=== PATIENT | male | born 1970 | race Caucasian/White ===

== ENCOUNTER 2020-02-20 20:23 | Emergency (ER) | payer MEDICAID, SELFPAY ==
[2020-02-20 20:24] VITALS: BP 155/100; PULSE 64; RESP 15; TEMP 36.4; O2SAT 99; BMI 40.7
--- NOTE | 2020-02-20 21:08 | ED.DCSUM_ITS ---
- ER Visit Summary Date of Service: 02/20/20 Chief Complaint: Dental pain History of Present Illness: The patient is a 49 M who presents with dental pain that is been getting progressively worse over the past few weeks. Patient states the pain is on the right lower molars. Patient describes the pain as a porfirio. Patient admits to hot and cold sensitivity. Patient denies any fevers or chills. Patient denies any jaw or mouth swelling. Patient also states she is out of his blood pressure medication and needs a refill for that. Patient denies any chest pain or shortness of breath. Patient denies any nausea or vomiting. Physical Examination: Vital signs are stable except for mildly elevated blood pressure 135/100 patient is afebrile. Patient is in no acute distress. Oral mucosa is pink and moist. There are multiple dental caries over the right upper and lower molars. There is some mild gingival edema over this area. There is no fluctuance or abscess formation. There is no sublingual edema or evidence of Edil angina. There is no erythema or warmth. Neck is supple. Trachea is midline. There is no cervical lymphadenopathy. Was regular rate and rhythm. Lungs are clear and equal bilaterally. Cranial nerves II through XII are intact. There are no focal motor or sensory deficits noted. Emergency Department Course and Treatment: Patient was given a dose of Pen-Vee K and Motrin here. Patient was given prescriptions for Pen-Vee K, Motrin, and lisinopril. Patient was instructed to follow-up with his dentist and primary care physician in 5 to 7 days. Patient understood and was agreeable with the plan. All questions were answered. Disposition: Discharge home Impression: Infected dental caries This note was generated with [employer] dictation software. It may contain incorrect words, spelling, and punctuation that were not noted in review of the chart prior to signing ED Disposition - Plan for ED Patient: Disposition: Home or Assisted Living Diagnosis: Infected dental caries, Hypertension Instructions: ED [facility] Dental, ED Hypertension Established Prescriptions: Lisinopril 20 mg PO DAILY #30 tab Prescription Printed Ibuprofen [Motrin] 800 mg PO TID PRN PRN #20 tab PRN Reason: Pain Score 1-10 Prescription Printed Penicillin Vk [Pen-Vee K 250MG] 500 mg PO 4X/DAY #40 tab Prescription Printed Referrals: Alyson Marin [NON-STAFF] - 5-7 Days
[2020-02-20] MEDS: Ibuprofen 400 MG Tablet 800 MG PO (21:23)
[2020-02-20] MEDS: Penicillin Vk 250 MG Tablet 500 MG PO (21:23)
[2020-02-20 21:41] VITALS: BP 150/60; PULSE 78; RESP 18; O2SAT 96
== END 2020-02-20 21:41 | disposition home or self-care (01) ==
PROVIDERS: Emergency Provider Emergency Medicine
DX: K02.9 Dental caries, unspecified (principal); I10 Essential (primary) hypertension; K04.7 Periapical abscess without sinus
CPT/HCPCS: 99283

== ENCOUNTER 2021-01-05 05:53 | Emergency (ER) | payer MEDICAID, SELFPAY ==
[2021-01-05 05:53] VITALS: BP 187/106; PULSE 78; RESP 16; TEMP 35.5; O2SAT 98; BMI 34.4
--- NOTE | 2021-01-05 06:00 | EX.ED.DYSGE1 ---
HPI History of Present Illness Chief Complaint: Med Refill Informant: patient Narrative Narrative: Patient presents requesting refill of blood pressure meds. He has been on lisinopril 20 mg a day for a long time. This does not include hydrochlorothiazide. He is really not having symptoms but has been out for a few days. He cannot get into see a new primary physician and he just wanted to get his prescriptions filled. He has no complaints. Lisinopril has controlled his blood pressure well in the past. PFSH PFS Medical History HTN (hypertension) Home Medications lisinopril 20 mg PO DAILY #30 tab 02/20/20 [Rx Last Taken Unknown] lisinopril 20 mg PO DAILY #30 tab 01/05/21 [Rx Last Taken Unknown] Allergy/AdvReac Type Severity Reaction Status Date / Time No Known Allergies Allergy Verified 01/05/21 05:54 Social History Smoking Status: Current every day smoker tobacco type: cigarettes ROS ROS ED Constitutional Constitutional ED: Denies chills or fever(s) Eyes Eyes: Denies blurry vision Cardiovascular Cardiovascular: Denies chest pain or palpitations Respiratory/Chest Respiratory/Chest: Denies cough or dyspnea Integumentary Denies rash Neurologic Neurologic: Denies headache(s), paresthesias or weakness EXAM Physical Exam Const Vital Signs: 01/05/21 05:53 01/05/21 05:56 Temperature 96 F L Temperature Source Temporal Pulse Rate 78 Respiratory Rate 16 Respiratory Effort Normal Respiratory Pattern Normal Blood Pressure 187/106 H Blood Pressure Mean 133 Pulse Ox 98 Positive well nourished and well developed General Appearance ED: well developed and NAD; Negative for pallor HEENT Reports moist mucous membranes Eyes General Eye ED: Negative for pale conjunctiva Neck no JVD Resp normal respiratory effort and clear to auscultation bilaterally Cardio regular rate and regular rhythm Extremity normal to inspection General Extremety ED: Negative for edema General Extremity: Negative for edema Neuro oriented x3 Sensorium / Orientation: alert Psych mental status grossly normal Skin no rashes or lesions noted General Skin Exam: Negative for jaundice or pallor MDM MDM MDM Narrative Medical decision making narrative: Patient's blood pressure is up today. However, he is off of his meds and he is asymptomatic. This does not need acute treatment. He has been well controlled for many years on lisinopril. I will write him for lisinopril. Because it takes a while to get into first visit with the primary physician, I will write him for 2 refills. I explained he should still work to get in as soon as possible to a primary. But I would rather him not run out of medications. Discharge Plan Triage Chief Complaint: Med Refill ED Provider: Agusot Davis Dx/Rx/DC Orders Clinical Impression: Hypertension Instructions: Hypertension Dc, Med Refill Prescriptions: New lisinopril 20 mg tablet 20 mg PO DAILY Qty: 30 RF: 2 No Action lisinopril 20 MG tablet 20 mg PO DAILY Qty: 30 RF: 0 Primary Care Provider: Care Physician,No Primary Referrals: Navjot,Maite, DO [NON-STAFF] - As soon as possible Care Physician,No Primary [Primary Care Provider] - Disposition Disposition: Home, Self Care
== END 2021-01-05 06:17 | disposition home or self-care (01) ==
LOC: ED 06:13
PROVIDERS: Emergency Provider Emergency Medicine
DX: I10 Essential (primary) hypertension (principal); Z76.0 Encounter for issue of repeat prescription; F17.210 Nicotine dependence, cigarettes, uncomplicated; Z79.899 Other long term (current) drug therapy
CPT/HCPCS: 99282

== ENCOUNTER 2021-02-17 21:01 | Emergency (ER) | payer MEDICAID, SELFPAY ==
[2021-02-17 21:02] VITALS: BP 150/101; PULSE 62; RESP 15; TEMP 35.9; O2SAT 98; BMI 40.1
--- NOTE | 2021-02-17 21:14 | ED.RN ---
PT AMBULATED FROM TRIAGE TO ROOM WITHOUT DIFFICULTY. PT WAS STEADY AND WALKED IN A STRAIGHT LINE WITHOUT ASSISTANCE AND WITHOUT NEEDING TO HANG ON TO ANYTHING.
[2021-02-17 21:46] VITALS: BP 148/93; BP 153/95; BP 155/94; PULSE 57; PULSE 62; PULSE 64
[2021-02-17 21:55] LABS: Bedside Glucose 107 mg/dL (70-110)
--- NOTE | 2021-02-17 22:04 | CM.ED ---
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 GIOVANNI met with patient. He has [employer] insurance. SW discussed that [facility] and [facility] accept [employer] insurance. GIOVANNI also discussed the value of having a PCP. GIOVANNI also provided patient with handout titled when to go where and the phone number for [employer] RN and [employer] transport. Patient verbalized understanding. No other issues voiced. GIOVANNI remains available. Plan: Provided patient with PCP information Yazmin FARFAN
--- NOTE | 2021-02-17 22:07 | EDS_ITS ---
HPI History of Present Illness Chief Complaint: Dizziness Narrative Narrative: Patient is a 50-year-old male with past medical history of hypertension. He states for the past few weeks he has noticed intermittent bouts of dizziness that he describes as a lightheaded sensation. He states they only seem to occur when he is walking to the time clock at work or when he becomes very upset. He denies any headache or head trauma chest pain shortness of breath palpitations diarrhea or dysuria. He states that he missed work today secondary to the dizziness and therefore comes in for evaluation [facility] Medical History HTN (hypertension) Home Medications lisinopril 20 mg PO DAILY #30 tab 02/20/20 [Rx Last Taken Unknown] lisinopril 20 mg PO DAILY #30 tab 02/17/21 [Rx Last Taken Unknown] Allergy/AdvReac Type Severity Reaction Status Date / Time No Known Allergies Allergy Verified 02/17/21 21:02 Surgical History no surgical history Social History Smoking Status: Current every day smoker tobacco type: cigarettes ROS ROS ED Constitutional Constitutional ED: Denies chills or fever(s) Eyes Eyes: Denies change in vision ENT ENT ED: Denies sore throat Cardiovascular Cardiovascular: Denies chest pain Respiratory/Chest Respiratory/Chest: Denies cough or dyspnea Gastrointestinal Gastrointestinal: Denies abdominal pain, diarrhea, nausea or vomiting Genitourinary Genitourinary ED: Denies dysuria Musculoskeletal Musculoskeletal: Denies myalgias Integumentary Denies rash Neurologic Neurologic: Reports other Details: Positive dizziness ; Denies headache(s) Hematologic/Lymphatic Hematologic/Lymphatic: Denies easy bleeding or easy bruising EXAM Physical Exam Const Vital Signs: 02/17/21 21:02 02/17/21 21:09 02/17/21 21:46 Temperature 96.6 F L Temperature Source Temporal Pulse Rate 62 Pulse Rate [Lying] 57 L Pulse Rate [Sitting] 62 Pulse Rate [Standing] 64 Respiratory Rate 15 Respiratory Effort Normal Respiratory Pattern Normal Blood Pressure 150/101 H Blood Pressure [Lying] 155/94 H Blood Pressure [Sitting] 153/95 H Blood Pressure [Standing] 148/93 H Blood Pressure Mean 117 Blood Pressure Mean [Lying] 114 Blood Pressure Mean [Sitting] 114 Blood Pressure Mean [Standing] 111 Pulse Ox 98 Oxygen Delivery Method Room Air Positive well nourished and well developed General Appearance ED: well developed HEENT Reports TM's clear and moist mucous membranes Tympanic Membrane ED: Yes TM's clear Eyes PERRL and EOMs intact bilaterally Neck supple Resp normal respiratory effort and clear to auscultation bilaterally Cardio regular rate and regular rhythm GI normal to inspection, nondistended, normoactive bowel sounds, non-tender and non-distended Auscultation: normoactive bowel sounds Palpation: soft Extremity normal to inspection Neuro oriented x3 and CN's II-XII intact bilaterally Neuro Narrative: No nystagmus noted. No pronator drift or truncal ataxia or dy smetria. Negative Romberg's test. Negative Hallpike Sarahi exam. NIH stroke scale score of 0 Sensorium / Orientation: alert Motor Exam: strength 5/5 throughout Psych mental status grossly normal Skin no rashes or lesions noted MDM MDM MDM Narrative Medical decision making narrative: Patient presented to the ER mildly hypertensive otherwise with stable vitals. He reported dizziness when he ambulated but was able to walk from the waiting room all the way to his exam room with a steady gait. He had a nonfocal neuro exam and I cannot reproduce the dizziness. He was concerned he may be diabetic so I did perform a Accu- Chek at bedside and he is normal at 107. As she reported that he has occurred with walking at work I did elect to perform orthostatic vitals which were also negative. At this time he has a normal neurologic exam no persistent dizziness and can ambulate with a steady gait so do not feel there is need for further work-up and this can be completed on an outpatient basis if symptoms persist. Lab Data Labs: Laboratory Results - last 24 hr 02/17/21 21:45 POC Glucose 107 Discharge Plan Triage Chief Complaint: Dizziness ED Provider: Heriberto Tirado Dx/Rx/DC Orders Clinical Impression: Dizziness, nonspecific, Hypertension Instructions: Controlling High Blood Pressure, ED Dizziness, Uncertain Cause Prescriptions: New lisinopril 20 mg tablet 20 mg PO DAILY Qty: 30 RF: 0 No Action lisinopril 20 MG tablet 20 mg PO DAILY Qty: 30 RF: 0 Primary Care Provider: Care Physician,No Primary Referrals: Robert Bernstein MD [STAFF PHYSICIAN] - 1-2 Weeks Care Physician,No Primary [Primary Care Provider] - Disposition Disposition: Home, Self Care
== END 2021-02-17 22:15 | disposition home or self-care (01) ==
PROVIDERS: Emergency Provider Emergency Medicine
DX: R42 Dizziness and giddiness (principal); I10 Essential (primary) hypertension; F17.210 Nicotine dependence, cigarettes, uncomplicated
CPT/HCPCS: 82962; 99283

== ENCOUNTER 2021-02-20 20:30 | Emergency (ER) | payer MEDICAID, SELFPAY ==
[2021-02-20 20:31] VITALS: BP 164/98; PULSE 67; RESP 16; TEMP 36.3; O2SAT 97; BMI 39.8
--- NOTE | 2021-02-20 20:51 | EKG12_ITS ---
Test Reason : DYSRHYTHMIA Blood Pressure : / mmHG Vent. Rate : 052 BPM Atrial Rate : 052 BPM P-R Int : 140 ms QRS Dur : 080 ms QT Int : 424 ms P-R-T Axes : 052 032 046 degrees QTc Int : 394 ms Sinus bradycardia Otherwise normal ECG Confirmed by NACHO RED, ANTHONY ([id number]), television news video editor JAELYN DIAZ ([id number]) on 02/21/2021 1:03:34 PM Referred By: RADHA Confirmed By:ANTHONY GRIFFITH MD
--- NOTE | 2021-02-20 20:52 | EDS_ITS ---
HPI History of Present Illness Chief Complaint: Dizziness Narrative Narrative: 50-year-old male presenting with nonspecific lightheadedness. He does not describe it as vertiginous in nature. He has had this for the last few days. He was already seen in the ER for this and had orthostatic vital signs done which were normal. His blood pressure was slightly elevated however the patient is on blood pressure medications. He has not had a fever, chills, cough. He does admit to sinus pressure. He states that when he gets up to stand events when he has the most symptoms. He is able to ambulate without falling. He denies any head injury. Patient states that after his last visit mans[facility] delgadooxic to the ER the next morning he had a pinching type left-sided chest pain which lasted about 30 minutes and then resolved. He did not have any other symptoms with this pinching chest pain. Patient states that sometimes when he sitting in his desk sometimes he gets a little sweaty but he has no other symptoms with this and specifically does not have chest pain or dizziness with the symptoms. [facility] Medical History HTN (hypertension) Home Medications lisinopril 20 mg PO DAILY #30 tab 02/20/20 [Rx Last Taken Unknown] Allergy/AdvReac Type Severity Reaction Status Date / Time No Known Allergies Allergy Verified 02/20/21 20:31 Social History Smoking Status: Former smoker ROS ROS ED Constitutional Constitutional ED: Reports sweats Eyes Eyes: Denies blurry vision or diplopia ENT ENT ED: Denies rhinorrhea or sore throat Cardiovascular Cardiovascular: Reports chest pain; Denies palpitations or racing heartbeat Respiratory/Chest Respiratory/Chest: Denies cough, dyspnea or sputum Gastrointestinal Gastrointestinal: Denies abdominal pain, nausea or vomiting Genitourinary Genitourinary ED: Denies dysuria or hematuria Musculoskeletal Musculoskeletal: Denies arthralgias, back pain, myalgias or neck pain Integumentary Denies Abrasions or rash Neurologic Neurologic: Reports headache(s); Denies paresthesias EXAM Physical Exam Const Vital Signs: 02/20/21 20:31 02/20/21 20:34 02/20/21 20:54 Temperature 97.3 F L Temperature Source Oral Pulse Rate 67 Respiratory Rate 16 Respiratory Effort Non-Labored Blood Pressure 164/98 H Blood Pressure Mean 120 Pulse Ox 97 97 Oxygen Delivery Method Room Air Room Air Positive well nourished General Appearance ED: NAD; Negative for pallor HEENT Reports moist mucous membranes and nasal mucous membranes and turbinates normal normocephalic and trauma Eyes PERRL and EOMs intact bilaterally Resp normal respiratory effort and clear to auscultation bilaterally Cardio regular rate and regular rhythm GI normal to inspection, nondistended, normoactive bowel sounds Neuro oriented x3, CN's II-XII intact bilaterally and no sensory deficits noted Sensorium / Orientation: alert Motor Exam: strength 5/5 throughout Psych mental status grossly normal Skin General Skin Exam: Negative for jaundice or pallor MDM MDM MDM Narrative Medical decision making narrative: Patient presenting with dizziness which has had since his last visit to the emergency room. He does not have any vertiginous symptoms unable to reproduce this on examination. He has no focal neurologic deficits or lateralizing signs or symptoms. He does state that he has some sinus pressure but does not have any focal pain on examination. He does not have any purulent drainage from his nostrils nor does he have swollen nasal turbinates. Since patient did complain of chest pain a couple of days ago I will do a cardiac work-up. Patient is PERC negative. I do not believe the patient needs a CT of his brain based on his physical exam. Patient CBC shows slight leukocytosis 12. Hemoglobin hematocrit are stable. Renal function electrolytes are normal. Troponin is 7. EKG on my interpretation shows a sinus bradycardia with a ventricular rate of 52 bpm without signs of ST elevation or depression. There are no dysrhythmias. Chest x-ray on my interpretation shows no acute cardiopulmonary process and the radiologist does agree. Impression: 1. Dizziness Lab Data Labs: Laboratory Results - last 24 hr 02/20/21 02/20/21 20:37 20:37 WBC 12.0 H RBC 6.10 Hgb 17.6 H Hct 51.7 MCV 84.8 MCH 28.9 MCHC 34.0 RDW Std Deviation 37.3 RDW Coeff of Darell 12.2 Plt Count 324 MPV 9.7 Immature Gran % (Auto) 0.200 Neut % (Auto) 67.6 Lymph % (Auto) 24.8 [place] % (Auto) 6.2 Eos % (Auto) 0.8 Baso % (Auto) 0.4 Absolute Neuts (auto) 8.1 H Absolute Lymphs (auto) 2.98 Nucleated RBC % 0 Sodium 136 Potassium 4.1 Chloride 104 Carbon Dioxide 26.0 Anion Gap 6 BUN 12 Creatinine 0.99 Estim Creat Clear Calc 84.39 Est GFR (MDRD) Af Amer 103 Est GFR (MDRD) Non-Af 85 BUN/Creatinine Ratio 12.1 Glucose 115 H Calcium 9.0 Troponin I High Sens 7 Radiography Diagnostic Testing: Clinical Impression(s) from Imaging Studies Chest X-Ray 02/20/21 21:05 IMPRESSION: No acute radiographic abnormalities. Electronically Signed: Vincent Ibrahim MD at 22:04 EDT Tel , Service support , Discharge Plan Triage Chief Complaint: Dizziness ED Provider: Tim Walker Dx/Rx/DC Orders Clinical Impression: Dizziness, nonspecific Prescriptions: No Action lisinopril 20 MG tablet 20 mg PO DAILY Qty: 30 RF: 0 Primary Care Provider: Care Physician,No Primary Referrals: Fast,Maite, DO [NON-STAFF] - As Needed Care Physician,No Primary [Primary Care Provider] - Disposition Disposition: Home, Self Care
[2021-02-20 20:54] VITALS: O2SAT 97
[2021-02-20 20:58] LABS: Absolute Lymphocyte Count 2.98 X10^3/uL (0.83-4.51); Absolute Neutrophil Count 8.1 X10^3/uL (2.0-7.7); Basophil# 0.05 X10^3/uL; Basophil% 0.4 % (0-1); Eosinophils% 0.8 % (0-5); Hematocrit 51.7 % (40-54); Hemoglobin 17.6 g/dL (13.0-16.5); Lymphocyte # 2.98 X10^3/ul (0.83-4.51); Lymphocyte % 24.8 % (19-41); Mean Corpuscular Hgb 28.9 pg (27.0-32.0); Mean Corpuscular Volume 84.8 fL (80-94); Mean Platelet Vol. 9.7 fl (6.2-12.0); Monocyte# 0.74 X10^3/uL; Monocyte% 6.2 % (0-10); NRBC Flagged by Analyzer 0 % (0-5); Neutrophil # 8.11 X10^3/uL (2.7-7.7); Neutrophil % 67.6 % (47-70); Platelet Count 324 K/mm3 (150-450); RBC Distribution Width CV 12.2 % (11.6-14.6); RBC Distribution Width SD 37.3 fl (35.1-43.9)
--- NOTE | 2021-02-20 21:05 | RAD_ITS ---
INDICATION: chest pain EXAMINATION/TECHNIQUE: X-RAY - XR Chest 1 View COMPARISON: 10/21/2013. FINDINGS: The lungs are clear. The cardiomediastinal silhouette is unremarkable. No pleural effusion or pneumothorax. No acute osseous abnormalities. RAD/Chest 1 View (Portable) IMPRESSION: No acute radiographic abnormalities. Electronically Signed: Vincent Ibrahim MD at 22:04 EDT Tel , Service support ,
[2021-02-20 21:17] LABS: Anion Gap 6 (5-15); BUN 12 mg/dL (7-18); BUN/Creat Ratio 12.1 RATIO (10-20); Chloride 104 mmol/L (98-107); Creatinine, Serum 0.99 mg/dL (0.70-1.30); EST Glomerular Filtration Rate 85 mL/min (>60); Est Glom Filt Rate - Afr Amer 103 mL/min (>60); Estimated Creatinine Clearance 84.39 ml/min; Glucose 115 mg/dL (74-106); Potassium 4.1 mmol/L (3.5-5.1); Sodium Level 136 mmol/L (136-145); Troponin-I HS 7 pg/mL (3.0-78.0)
[2021-02-20 22:14] VITALS: BP 151/96; PULSE 84; RESP 16
== END 2021-02-20 22:14 | disposition home or self-care (01) ==
PROVIDERS: Emergency Provider Student in an Organized Health Care Education/Training Program
DX: R42 Dizziness and giddiness (principal); R07.9 Chest pain, unspecified; Z87.891 Personal history of nicotine dependence; I10 Essential (primary) hypertension
CPT/HCPCS: 71045; 80048; 84484; 85025; 93005; 99285; A4216

== ENCOUNTER 2021-02-22 19:58 | Emergency (ER) | payer MEDICAID, SELFPAY ==
[2021-02-22 20:00] VITALS: BP 171/100; PULSE 57; RESP 18; TEMP 36.2; O2SAT 100; BMI 39.3
[2021-02-22 20:14] VITALS: BP 150/103; PULSE 54; RESP 16
--- NOTE | 2021-02-22 20:22 | EDS_ITS ---
HPI History of Present Illness Chief Complaint: General Illness Narrative Narrative: 50-year-old male presenting with pressure in his head and lightheadedness. Is not vertiginous in nature. This is his third visit to the ER for this. Patient has the same symptoms as he did although he states that he had a pinching pain in the upper chest which lasted a second earlier. He denies chest pressure or diaphoresis. His states that he is having difficulty walking and she is having to support him. He denies that he had an acute onset headache. He has no visual complaints. He does not have a fever. He states earlier today he did vomit after eating a croissant but then ate some pizza after that and did fine. He does not have any abdominal pain. PFSH PFS Medical History HTN (hypertension) Home Medications lisinopril 20 mg PO DAILY #30 tab 02/20/20 [Rx Last Taken Unknown] Allergy/AdvReac Type Severity Reaction Status Date / Time No Known Allergies Allergy Verified 02/20/21 20:31 Social History Smoking Status: Former smoker ROS ROS ED Constitutional Constitutional ED: Denies chills or fever(s) Eyes Eyes: Denies blurry vision or diplopia ENT ENT ED: Denies rhinorrhea or sore throat Cardiovascular Cardiovascular: Reports chest pain; Denies palpitations or racing heartbeat Respiratory/Chest Respiratory/Chest: Denies cough or dyspnea Gastrointestinal Gastrointestinal: Reports nausea and vomiting; Denies abdominal pain, constipation or diarrhea Genitourinary Genitourinary ED: Denies dysuria or hematuria Musculoskeletal Musculoskeletal: Denies arthralgias or myalgias Integumentary Denies rash Neurologic Neurologic: Reports headache(s) and other Details: Lightheadedness ; Denies paresthesias Psychiatric Psychiatric: Reports anxiety and depression EXAM Physical Exam Const Vital Signs: 02/22/21 20:00 02/22/21 20:14 02/22/21 20:15 Temperature 97.2 F L Temperature Source Temporal Pulse Rate 57 L 54 L Respiratory Rate 18 16 Respiratory Effort Normal Non-Labored Respiratory Pattern Normal Blood Pressure 171/100 H 150/103 H Blood Pressure Mean 123 118 Pulse Ox 100 Oxygen Delivery Method Room Air 02/22/21 21:03 02/22/21 22:00 02/22/21 23:12 Temperature Temperature Source Pulse Rate 59 L 53 L Respiratory Rate 16 Respiratory Effort Respiratory Pattern Blood Pressure 149/85 H 113/63 Blood Pressure Mean 106 79 Pulse Ox Oxygen Delivery Method Room Air Positive well nourished General Appearance ED: NAD; Negative for pallor HEENT Reports moist mucous membranes trauma Eyes PERRL and EOMs intact bilaterally Neck supple Resp normal respiratory effort and clear to auscultation bilaterally Cardio regular rate and regular rhythm Extremity normal to inspection General Extremety ED: Negative for edema or tenderness General Extremity: Negative for edema Neuro oriented x3, CN's II-XII intact bilaterally and no sensory deficits noted Sensorium / Orientation: alert Motor Exam: strength 5/5 throughout Psych mental status grossly normal Skin General Skin Exam: Negative for jaundice or pallor MDM MDM MDM Narrative Medical decision making narrative: Patient presenting with the third time to the ER with similar symptoms. I did repeat a cardiac work-up due to the pinching chest pain which lasted a second earlier. His EKG on my interpretation shows a sinus bradycardia with a ventricular rate of 59 bpm without signs of ischemic change or dysrhythmia. Chest x-ray on my interpretation shows no acute cardiopulmonary process and the radiologist does agree. I obtained a CT of the brain which is negative for acute intracranial findings. Patient CBC and BMP are normal. Troponin has not changed from his previous visit and it is still 7. I do not believe that his symptoms are cardiac related and I do not believe she needs a delta troponin. His TSH was also tested and is normal at 1.64. Patient ambulated in the hallway and nursing staff and myself personally visualized him walking with a steady gait without the assistance of his up and down the hallway. He is not unstable. I had a long discussion with the patient and his and I feel that they are safe to be discharged home to follow-up with Dr. Morfin further appointment tomorrow morning. They agree. Patient is discharged home in stable condition. Impression: 1. Head pressure 2. Lightheadedness 3. Atypical chest pain Lab Data Labs: Laboratory Results - last 24 hr 02/22/21 02/22/21 21:15 21:15 WBC 10.1 RBC 5.99 Hgb 17.1 H Hct 50.2 MCV 83.8 MCH 28.5 MCHC 34.1 RDW Std Deviation 36.2 RDW Coeff of Darell 12.0 Plt Count 308 MPV 9.7 Immature Gran % (Auto) 0.200 Neut % (Auto) 67.9 Lymph % (Auto) 24.6 [place] % (Auto) 5.8 Eos % (Auto) 0.9 Baso % (Auto) 0.6 Absolute Neuts (auto) 6.8 Absolute Lymphs (auto) 2.47 Nucleated RBC % 0 Sodium 138 Potassium 4.1 Chloride 103 Carbon Dioxide 27.0 Anion Gap 8 BUN 9 Creatinine 0.91 Estim Creat Clear Calc 91.81 Est GFR (MDRD) Af Amer 114 Est GFR (MDRD) Non-Af 94 BUN/Creatinine Ratio 9.9 L Glucose 98 Calcium 8.9 Troponin I High Sens 7 TSH 1.64 Radiography Diagnostic Testing: Clinical Impression(s) from Imaging Studies Brain CT 02/22/21 20:53 IMPRESSION: Chronic involutional changes of the brain. Electronically Signed: Hao Jade MD at 22:13 EDT , Service support , Chest X-Ray 02/22/21 21:28 IMPRESSION: Normal x-ray examination of the chest. Electronically Signed: Hao Jade MD at 22:39 EDT , Service support , Discharge Plan Triage Chief Complaint: General Illness ED Provider: Tim Walker Dx/Rx/DC Orders Clinical Impression: Dizziness, nonspecific Prescriptions: No Action lisinopril 20 MG tablet 20 mg PO DAILY Qty: 30 RF: 0 Primary Care Provider: Care Physician,No Primary Referrals: Fast,Maite, DO [NON-STAFF] - 1 Day Care Physician,No Primary [Primary Care Provider] - Disposition Disposition: Home, Self Care
--- NOTE | 2021-02-22 20:53 | EKG12_ITS ---
Test Reason : DYSRHYTHMIA Blood Pressure : / mmHG Vent. Rate : 059 BPM Atrial Rate : 059 BPM P-R Int : 134 ms QRS Dur : 080 ms QT Int : 414 ms P-R-T Axes : 046 025 029 degrees QTc Int : 409 ms Sinus bradycardia Otherwise normal ECG Confirmed by NACHO RED, ANTHONY ([id number]), art editor JAELYN DIAZ ([id number]) on 02/23/2021 9:10:56 AM Referred By: RADHA Confirmed By:ANTHONY GRIFFITH MD
--- NOTE | 2021-02-22 20:53 | CT_ITS ---
STUDY: CT BRAIN WITHOUT CONTRAST REASON FOR EXAM: Male, 50 years old. Headache RADIATION DOSAGE (If Supplied By Facility): CTDIvol = ( 44.99 ) mGy, DLP = ( 812.98 ) mGycm TECHNIQUE: Transaxial CT imaging of the brain was performed without administration of intravenous contrast material. Individualized dose optimization techniques were used for this CT. COMPARISON: None. FINDINGS: Normal soft tissue structures. Normal calvarium. There is mild cerebral atrophy with widening of the extra-axial spaces and ventricular dilatation. Normal white matter tracts of the cerebral hemispheres. Normal basal ganglia and thalami. Normal brainstem. Normal cerebellum. There is no intracranial hemorrhage. There are no findings of an acute ischemic infarction. Normal visualized paranasal sinuses. CT/Brain/Head without Contrast IMPRESSION: Chronic involutional changes of the brain. Electronically Signed: Hao Jade MD at 22:13 EDT , Service support ,
[2021-02-22 21:24] LABS: Absolute Lymphocyte Count 2.47 X10^3/uL (0.83-4.51); Absolute Neutrophil Count 6.8 X10^3/uL (2.0-7.7); Basophil# 0.06 X10^3/uL; Basophil% 0.6 % (0-1); Eosinophil# 0.09 X10^3/uL; Eosinophils% 0.9 % (0-5); Hematocrit 50.2 % (40-54); Hemoglobin 17.1 g/dL (13.0-16.5); Lymphocyte # 2.47 X10^3/ul (0.83-4.51); Lymphocyte % 24.6 % (19-41); Mean Corp Hgb Conc 34.1 g/dL (32-36); Mean Corpuscular Hgb 28.5 pg (27.0-32.0); Mean Corpuscular Volume 83.8 fL (80-94); Mean Platelet Vol. 9.7 fl (6.2-12.0); Monocyte# 0.58 X10^3/uL; Monocyte% 5.8 % (0-10); NRBC Flagged by Analyzer 0 % (0-5); Neutrophil # 6.84 X10^3/uL (2.7-7.7); Neutrophil % 67.9 % (47-70); Platelet Count 308 K/mm3 (150-450); RBC Distribution Width SD 36.2 fl (35.1-43.9); Red Blood Count 5.99 M/mm3 (4.6-6.2); White Blood Count 10.1 K/mm3 (4.4-11.0)
--- NOTE | 2021-02-22 21:28 | RAD_ITS ---
STUDY: X-RAY CHEST REASON FOR EXAM: Male, 50 years old. chest pain TECHNIQUE: Single AP portable view of the chest. COMPARISON: February 20, 2021 FINDINGS: The lungs are clear and expanded. There is no demonstrated pleural abnormality. Normal size heart. Normal mediastinum and nisa. Normal visualized pulmonary arteries. Normal visualized aortic arch and descending thoracic aorta. Normal visualized thoracic spine. Normal visualized ribs, clavicles, and shoulders. There is no demonstrated abnormality of the visualized soft tissue structures of the upper abdomen. RAD/Chest 1 View (Portable) IMPRESSION: Normal x-ray examination of the chest. Electronically Signed: Hao Jade MD at 22:39 EDT , Service support ,
[2021-02-22 21:52] LABS: Anion Gap 8 (5-15); BUN 9 mg/dL (7-18); BUN/Creat Ratio 9.9 RATIO (10-20); Calcium,Total 8.9 mg/dL (8.5-10.1); Chloride 103 mmol/L (98-107); Creatinine, Serum 0.91 mg/dL (0.70-1.30); EST Glomerular Filtration Rate 94 mL/min (>60); Est Glom Filt Rate - Afr Amer 114 mL/min (>60); Estimated Creatinine Clearance 91.81 ml/min; Glucose 98 mg/dL (74-106); Potassium 4.1 mmol/L (3.5-5.1); Sodium Level 138 mmol/L (136-145); Thyroid Stim Hormone (TSH) 1.64 uIU/mL (0.358-3.74); Troponin-I HS 7 pg/mL (3.0-78.0)
[2021-02-22 22:00] VITALS: BP 149/85; PULSE 59; RESP 16
[2021-02-22 23:12] VITALS: BP 113/63; PULSE 53
== END 2021-02-23 00:01 | disposition home or self-care (01) ==
PROVIDERS: Emergency Provider Student in an Organized Health Care Education/Training Program
DX: R42 Dizziness and giddiness (principal); R07.89 Other chest pain; I10 Essential (primary) hypertension; Z87.891 Personal history of nicotine dependence
CPT/HCPCS: 70450; 71045; 80048; 84443; 84484; 85025; 87426; 93005; 99283

== ENCOUNTER → 2022-03-27 | Outpatient (CLI) | payer MEDICAID, SELFPAY ==
[2022-03-27 13:09] LABS: Absolute Lymphocyte Count 2.52 X10^3/uL (0.83-4.51); Absolute Neutrophil Count 5.5 X10^3/uL (2.0-7.7); Basophil# 0.06 X10^3/uL; Basophil% 0.7 % (0-1); Eosinophil# 0.15 X10^3/uL; Eosinophils% 1.7 % (0-5); Hematocrit 50.3 % (40-54); Hemoglobin 17.3 g/dL (13.0-16.5); Lymphocyte # 2.52 X10^3/ul (0.83-4.51); Mean Corp Hgb Conc 34.4 g/dL (32-36); Mean Corpuscular Hgb 29.6 pg (27.0-32.0); Mean Corpuscular Volume 86.1 fL (80-94); Mean Platelet Vol. 11.2 fl (6.2-12.0); Monocyte# 0.42 X10^3/uL; Monocyte% 4.8 % (0-10); NRBC Flagged by Analyzer 0 % (0-5); Neutrophil # 5.51 X10^3/uL (2.7-7.7); Neutrophil % 63.6 % (47-70); Platelet Count 305 K/mm3 (150-450); RBC Distribution Width CV 12.2 % (11.6-14.6); RBC Distribution Width SD 37.9 fl (35.1-43.9); Red Blood Count 5.84 M/mm3 (4.6-6.2); White Blood Count 8.7 K/mm3 (4.4-11.0)
[2022-03-27 13:47] LABS: ALB/GLOB Ratio 0.9 RATIO (0.9-2.4); AST(SGOT) 43 U/L (15-37); Alanine Aminotransfer ALT/SGPT 87 U/L (16-61); Albumin, Serum 3.7 g/dL (3.2-5.0); Alkaline Phosphatase 99 U/L (45-117); Anion Gap 10 (5-15); BUN 11 mg/dL (7-18); BUN/Creat Ratio 12.7 RATIO (10-20); Calcium,Total 8.5 mg/dL (8.5-10.1); Chloride 100 mmol/L (98-107); Creatinine, Serum 0.87 mg/dL (0.70-1.30); EST Glomerular Filtration Rate 99 mL/min (>60); Est Glom Filt Rate - Afr Amer 119 mL/min (>60); Globulin 3.9 g/dL (2.2-4.2); Glucose 208 mg/dL (74-106); Potassium 3.6 mmol/L (3.5-5.1); Protein, Total 7.6 g/dL (6.4-8.2); Sodium Level 137 mmol/L (136-145); Thyroid Stim Hormone (TSH) 1.47 uIU/mL (0.358-3.74)
[2022-03-27 15:21] LABS: Hepatitis C Antibody Non-Reactive (Nonreactive)
== END | disposition home or self-care (01) ==
LOC: POLAB3 10:26
PROVIDERS: Visit Provider Family Medicine Geriatric Medicine
DX: Z13.89 Encounter for screening for other disorder (principal); R53.83 Other fatigue
CPT/HCPCS: 36415; 80053; 84443; 85025; 86803

== ENCOUNTER → 2022-06-26 | Outpatient (CLI) | payer MEDICAID, SELFPAY ==
[2022-06-26 13:18] LABS: Absolute Lymphocyte Count 3.21 X10^3/uL (0.83-4.51); Absolute Neutrophil Count 5.6 X10^3/uL (2.0-7.7); Basophil# 0.04 X10^3/uL; Basophil% 0.4 % (0-1); Eosinophil# 0.18 X10^3/uL; Eosinophils% 1.9 % (0-5); Hematocrit 53.4 % (40-54); Lymphocyte # 3.21 X10^3/ul (0.83-4.51); Mean Corp Hgb Conc 33.7 g/dL (32-36); Mean Corpuscular Hgb 28.8 pg (27.0-32.0); Mean Corpuscular Volume 85.3 fL (80-94); Mean Platelet Vol. 10.5 fl (6.2-12.0); Monocyte# 0.64 X10^3/uL; Monocyte% 6.6 % (0-10); NRBC Flagged by Analyzer 0 % (0-5); Neutrophil # 5.62 X10^3/uL (2.7-7.7); Neutrophil % 57.8 % (47-70); Platelet Count 275 K/mm3 (150-450); RBC Distribution Width CV 11.8 % (11.6-14.6); RBC Distribution Width SD 36.1 fl (35.1-43.9); Red Blood Count 6.26 M/mm3 (4.6-6.2); White Blood Count 9.7 K/mm3 (4.4-11.0)
[2022-06-26 13:41] LABS: ALB/GLOB Ratio 0.8 RATIO (0.9-2.4); AST(SGOT) 39 U/L (15-37); Alanine Aminotransfer ALT/SGPT 86 U/L (16-61); Albumin, Serum 3.7 g/dL (3.2-5.0); Alkaline Phosphatase 98 U/L (45-117); Anion Gap 7 (5-15); BUN 14 mg/dL (7-18); BUN/Creat Ratio 17.2 RATIO (10-20); Calcium,Total 9.4 mg/dL (8.5-10.1); Chloride 102 mmol/L (98-107); Creatinine, Serum 0.81 mg/dL (0.70-1.30); EST Glomerular Filtration Rate 106 mL/min (>60); Est Glom Filt Rate - Afr Amer 128 mL/min (>60); Globulin 4.6 g/dL (2.2-4.2); Glucose 131 mg/dL (74-106); Potassium 4.1 mmol/L (3.5-5.1); Protein, Total 8.3 g/dL (6.4-8.2); Sodium Level 136 mmol/L (136-145); Thyroid Stim Hormone (TSH) 2.84 uIU/mL (0.358-3.74)
[2022-06-27 13:13] LABS: Pathologist Review Reviewed
== END | disposition home or self-care (01) ==
LOC: POLAB3 10:42
PROVIDERS: Visit Provider Family Medicine Geriatric Medicine
DX: E11.65 Type 2 diabetes mellitus with hyperglycemia (principal); I10 Essential (primary) hypertension
CPT/HCPCS: 36415; 80053; 84443; 85025

== ENCOUNTER → 2022-07-08 | Outpatient (CLI) | payer MEDICAID, SELFPAY ==
--- NOTE | 2022-07-08 08:52 | US_ITS ---
INDICATION: ELEV LIVER ENZ EXAMINATION: Ultrasound US Abdomen RUQ (limited) TECHNIQUE: Hair-scale and color Doppler imaging was performed of the abdomen. COMPARISON: None. FINDINGS: LIVER: 18.8 cm craniocaudal There is increased echotexture. No focal hepatic lesion. No intrahepatic biliary ductal dilatation. There is no free fluid. GALLBLADDER AND BILIARY TREE: No shadowing gallstone, pericholecystic fluid or gallbladder wall thickening is demonstrated. The proximal common bile duct measures 0.6 cm, SONOGRAPHIC NAQVI''S SIGN: Negative. PANCREAS: Cannot adequately visualize due to body habitus and overlying bowel gas. No focal abnormality is demonstrated in the pancreas. No pancreatic ductal dilatation. KIDNEYS: Right kidney measures 12.0 x 4.8 x 4.6 cm with cortical thickness 1.5 cm. VESSELS: Submitted longitudinal images of the intra-abdominal aorta demonstrate no gross abnormalities and are unremarkable. The IVC is patent. US/Abdomen Limited IMPRESSION: Hepatomegaly. Fatty liver. Common duct 0.6 cm. This is at the upper limits of normal. Correlation advised. Electronically Signed: Seamus Zelaya MD, DEBI at 10:14 EST ,
== END | disposition home or self-care (01) ==
LOC: US 08:49
PROVIDERS: PCP Family Medicine Geriatric Medicine; Visit Provider Family Medicine Geriatric Medicine
DX: R74.8 Abnormal levels of other serum enzymes (principal)
CPT/HCPCS: 76705

== ENCOUNTER → 2022-07-13 | Outpatient (CLI) | payer MEDICAID, SELFPAY ==
[2022-07-13 12:30] LABS: Absolute Lymphocyte Count 3.27 X10^3/uL (0.83-4.51); Absolute Neutrophil Count 5.3 X10^3/uL (2.0-7.7); Basophil# 0.06 X10^3/uL; Basophil% 0.6 % (0-1); Eosinophil# 0.14 X10^3/uL; Eosinophils% 1.5 % (0-5); Hematocrit 51.1 % (40-54); Hemoglobin 16.8 g/dL (13.0-16.5); Lymphocyte # 3.27 X10^3/ul (0.83-4.51); Lymphocyte % 34.8 % (19-41); Mean Corp Hgb Conc 32.9 g/dL (32-36); Mean Corpuscular Hgb 28.3 pg (27.0-32.0); Mean Corpuscular Volume 86.2 fL (80-94); Monocyte# 0.65 X10^3/uL; Monocyte% 6.9 % (0-10); NRBC Flagged by Analyzer 0 % (0-5); Neutrophil # 5.25 X10^3/uL (2.7-7.7); Platelet Count 278 K/mm3 (150-450); RBC Distribution Width CV 11.9 % (11.6-14.6); RBC Distribution Width SD 37.6 fl (35.1-43.9); Red Blood Count 5.93 M/mm3 (4.6-6.2); White Blood Count 9.4 K/mm3 (4.4-11.0)
== END | disposition home or self-care (01) ==
LOC: POLAB3 09:32
PROVIDERS: PCP Family Medicine Geriatric Medicine; Visit Provider Family Medicine Geriatric Medicine
DX: R74.8 Abnormal levels of other serum enzymes (principal)
CPT/HCPCS: 36415; 85025

== ENCOUNTER → 2022-07-18 | Outpatient (CLI) | payer MEDICAID, SELFPAY ==
--- NOTE | 2022-07-18 08:05 | US_ITS ---
STUDY: ABDOMINAL ULTRASOUND - ELASTOGRAPHY REASON FOR VISIT: Male, 52 years old. Fatty infiltration of the liver. TECHNIQUE: Liver stiffness measurements were obtained on a Platiza RS 85 ultrasound machine using a CA 1-7 probe following the SRU guidelines. 3 measurements were obtained using a 2-D-SWE method. TheIQR/M was 25 % suggesting a quality data set. TECHNICAL QUALITY: Adequate. COMPARISON: Comparison is made with prior study dated July 08, 2022. FINDINGS: Liver: Hepatomegaly and fatty infiltration of the liver. Median liver stiffness measured 5.2 kPa. US/Elastography Parenchyma/Organ IMPRESSION: Liver stiffness measures 5.2 kPa compatible with F0-F1 (Normal to mild liver fibrosis) Metavir score. Electronically Signed: Carson Kirkpatrick MD at 17:43 EST ,
== END | disposition home or self-care (01) ==
LOC: US 08:03
PROVIDERS: PCP Family Medicine Geriatric Medicine; Visit Provider Family Medicine Geriatric Medicine
DX: K76.0 Fatty (change of) liver, not elsewhere classified (principal)
CPT/HCPCS: 76981

== ENCOUNTER → 2022-09-25 | Outpatient (CLI) | payer MEDICAID, SELFPAY ==
[2022-09-25 12:58] LABS: Absolute Lymphocyte Count 2.36 X10^3/uL (0.83-4.51); Absolute Neutrophil Count 5.1 X10^3/uL (2.0-7.7); Basophil# 0.05 X10^3/uL; Basophil% 0.6 % (0-1); Eosinophil# 0.15 X10^3/uL; Eosinophils% 1.9 % (0-5); Hematocrit 54.3 % (40-54); Hemoglobin 17.8 g/dL (13.0-16.5); Lymphocyte # 2.36 X10^3/ul (0.83-4.51); Lymphocyte % 29.4 % (19-41); Mean Corp Hgb Conc 32.8 g/dL (32-36); Mean Corpuscular Hgb 28.2 pg (27.0-32.0); Mean Corpuscular Volume 85.9 fL (80-94); Monocyte# 0.36 X10^3/uL; Monocyte% 4.5 % (0-10); NRBC Flagged by Analyzer 0 % (0-5); Neutrophil # 5.11 X10^3/uL (2.7-7.7); Neutrophil % 63.5 % (47-70); Platelet Count 272 K/mm3 (150-450); RBC Distribution Width CV 12.3 % (11.6-14.6); RBC Distribution Width SD 38.6 fl (35.1-43.9); Red Blood Count 6.32 M/mm3 (4.6-6.2)
[2022-09-25 13:34] LABS: AST(SGOT) 27 U/L (15-37); Alanine Aminotransfer ALT/SGPT 50 U/L (16-61); Albumin, Serum 3.9 g/dL (3.2-5.0); Alkaline Phosphatase 81 U/L (45-117); Anion Gap 9 (5-15); BUN 15 mg/dL (7-18); BUN/Creat Ratio 15.5 RATIO (10-20); Calcium,Total 8.9 mg/dL (8.5-10.1); Chloride 103 mmol/L (98-107); Cholesterol 135 mg/dL (200); Creatinine, Serum 0.96 mg/dL (0.70-1.30); EST Glomerular Filtration Rate 87 mL/min (>60); Est Glom Filt Rate - Afr Amer 105 mL/min (>60); Globulin 4.1 g/dL (2.2-4.2); Glucose 163 mg/dL (74-106); High Density Lipoprotein 32 mg/dL; Potassium 3.8 mmol/L (3.5-5.1); Sodium Level 137 mmol/L (136-145); Thyroid Stim Hormone (TSH) 1.32 uIU/mL (0.358-3.74); Triglycerides 219 mg/dL; Very Low Density Lipoprotein 44 mg/dL (5-40)
[2022-09-25 14:52] LABS: Hemoglobin A1c 6.2 % (3.8-5.6)
== END | disposition home or self-care (01) ==
LOC: POLAB3 09:45
PROVIDERS: PCP Family Medicine Geriatric Medicine; Visit Provider Family Medicine Geriatric Medicine
DX: D75.1 Secondary polycythemia (principal); E11.65 Type 2 diabetes mellitus with hyperglycemia; B18.0 Chronic viral hepatitis B with delta-agent; I10 Essential (primary) hypertension
CPT/HCPCS: 36415; 80053; 80061; 83036; 84443; 85025

== ENCOUNTER 2024-03-15 19:10 | Emergency (ER) | payer SELFPAY ==
[2024-03-15 19:11] VITALS: BP 232/113; PULSE 60; RESP 18; TEMP 37.1; O2SAT 98; BMI 37.3
--- NOTE | 2024-03-15 19:19 | EKG12_ITS ---
Test Reason : DYSRHYTHMIA Blood Pressure : */* mmHG Vent. Rate : 54 BPM Atrial Rate : 54 BPM P-R Int : 132 ms QRS Dur : 78 ms QT Int : 422 ms P-R-T Axes : 20 18 19 degrees QTcB Int : 400 ms Sinus bradycardia Otherwise normal ECG Confirmed by NACHO RED, ANTHONY ([id number]), state editor GLADYS WILSON ([id number]) on 03/17/2024 9:27:39 AM Referred By: Confirmed By: ANTHONY GRIFFITH MD
[2024-03-15 19:34] VITALS: O2SAT 98
--- NOTE | 2024-03-15 19:45 | RAD_ITS ---
INDICATION: chest pain EXAMINATION/TECHNIQUE: X-RAY - XR Chest 1 View COMPARISON: 02/22/2021. FINDINGS: LINES/DEVICES: None. LUNGS: No consolidation, edema or effusion. No pneumothorax. MEDIASTINUM AND CARDIOVASCULAR STRUCTURES: Cardiac silhouette not enlarged. Central airways and mediastinal contour are unremarkable. BONES AND SOFT TISSUES: Unremarkable. RAD/Chest 1 View (Portable) IMPRESSION: No radiographic evidence of acute cardiopulmonary disease. Electronically Signed: Ivanna Mendoza MD at 20:17 EDT Reading Location ID and State: [id number] / Tel , Service support ,
[2024-03-15 19:53] LABS: Absolute Lymphocyte Count 2.26 X10^3/uL (0.83-4.51); Absolute Neutrophil Count 5.7 X10^3/uL (2.0-7.7); Basophil# 0.08 X10^3/uL; Basophil% 0.9 % (0-1); Eosinophil# 0.06 X10^3/uL; Eosinophils% 0.7 % (0-5); Hematocrit 48.1 % (40-54); Lymphocyte # 2.26 X10^3/ul (0.83-4.51); Mean Corp Hgb Conc 35.3 g/dL (32-36); Mean Corpuscular Hgb 28.9 pg (27.0-32.0); Mean Corpuscular Volume 81.8 fL (80-94); Mean Platelet Vol. 10.2 fl (6.2-12.0); Monocyte# 0.55 X10^3/uL; Monocyte% 6.3 % (0-10); NRBC Flagged by Analyzer 0 % (0-5); Neutrophil # 5.73 X10^3/uL (2.7-7.7); Neutrophil % 65.9 % (47-70); Platelet Count 289 K/mm3 (150-450); RBC Distribution Width CV 11.6 % (11.6-14.6); RBC Distribution Width SD 34.3 fl (35.1-43.9); Red Blood Count 5.88 M/mm3 (4.6-6.2); White Blood Count 8.7 K/mm3 (4.4-11.0)
[2024-03-15 20:11] VITALS: BP 184/97; PULSE 59; RESP 18; O2SAT 96
[2024-03-15 20:11] LABS: Anion Gap 6 (5-15); BUN 13 mg/dL (7-18); Calcium,Total 8.9 mg/dL (8.5-10.1); Chloride 106 mmol/L (98-107); Creatinine, Serum 0.87 mg/dL (0.70-1.30); EST Glomerular Filtration Rate 98 mL/min (>60); Est Glom Filt Rate - Afr Amer 119 mL/min (>60); Estimated Creatinine Clearance 116.48 ml/min; Glucose 111 mg/dL (74-106); Potassium 4.1 mmol/L (3.5-5.1); Sodium Level 138 mmol/L (136-145); Troponin-I HS (w/2H Reflex) 6 pg/mL (3.0-78.0)
[2024-03-15 21:00] VITALS: BP 192/103; PULSE 48; RESP 16; O2SAT 97
[2024-03-15 21:43] LABS: Reflex Troponin-HS? (from REC) Y
[2024-03-15 22:00] VITALS: BP 168/92; PULSE 46; RESP 18; O2SAT 98
--- NOTE | 2024-03-15 22:07 | EDS_ITS ---
HPI History of Present Illness Chief Complaint: Hypertension Informant: patient Narrative Narrative: Patient is a 53-year-old male with history of hypertension presenting with elevated blood pressure. Patient states he has been having symptoms of high blood pressure including headache, intermittent chest discomfort, heartburn and fogginess over the past few days to a week. He states his feels like his blood pressure is high. He previously saw Dr. Rudd and took lisinopril 20 mg to be states has been off it for about a year. He was trying to get off blood pressure medicine and just maintain his blood pressure with diet and exercise but has been unsuccessful with that. Like to go back on his blood pressure medicine. Denies any other complaints or concerns at this time. Denies any associated cough, difficulty breathing, fever, leg swelling, nausea, vomiting or changes bowel movements. [facility] Medical History Polycythemia Chronic viral hepatitis B with delta-agent Anxiety HLD (hyperlipidemia) Elevated LFTs Type 2 diabetes mellitus Fatty liver HTN (hypertension) Home Medications ?Medication ?Instructions ?Recorded ?Last Taken ?Type lisinopril 20 mg tablet 20 mg PO DAILY #30 tabs 03/15/24 Unknown Rx Allergy/AdvReac Type Severity Reaction Status Date / Time No Known Allergies Allergy Verified 03/15/24 19:14 Social History Smoking Status: Current every day smoker tobacco type: cigarettes and e- cigarettes alcohol intake: current substance use type: does not use ROS ROS ED Constitutional Constitutional ED: Denies chills or fever(s) Eyes Eyes: Denies change in vision ENT ENT ED: Denies rhinorrhea or sore throat Cardiovascular Cardiovascular: Reports chest pain; Denies palpitations or racing heartbeat Respiratory/Chest Respiratory/Chest: Denies cough or dyspnea Gastrointestinal Gastrointestinal: Reports abdominal pain; Denies diarrhea, nausea or vomiting Musculoskeletal Musculoskeletal: Denies arthralgias or myalgias Integumentary Denies rash Neurologic Neurologic: Reports headache(s); Denies paresthesias or weakness EXAM Physical Exam Const Vital Signs: 03/15/24 19:11 03/15/24 19:34 03/15/24 19:34 Temperature 98.7 F Temperature Source Oral Pulse Rate 60 Respiratory Rate 18 Respiratory Effort Normal Non-Labored Respiratory Pattern Normal Blood Pressure 232/113 H Blood Pressure Mean 152 Pulse Ox 98 98 Oxygen Delivery Method Room Air Room Air 03/15/24 20:11 03/15/24 21:00 Temperature Temperature Source Pulse Rate 59 L 48 L Respiratory Rate 18 16 Respiratory Effort Respiratory Pattern Blood Pressure 184/97 H 192/103 H Blood Pressure Mean 126 132 Pulse Ox 96 97 Oxygen Delivery Method Room Air Room Air Positive well nourished and well developed General Appearance ED: well developed and NAD HEENT Reports moist mucous membranes Eyes PERRL and EOMs intact bilaterally Neck supple and no JVD Chest Wall inspection of chest normal and palpation of chest normal Resp normal respiratory effort and clear to auscultation bilaterally Cardio regular rate and regular rhythm GI normal to inspection, nondistended, normoactive bowel sounds and non-tender Extremity normal to inspection General Extremety ED: Negative for edema General Extremity: Negative for edema Neuro oriented x3 and CN's II-XII intact bilaterally Neuro Narrative: No focal deficits appreciated Sensorium / Orientation: alert Motor Exam: Negative for general weakness Psych mental status grossly normal Skin no rashes or lesions noted and no wounds MDM MDM MDM Narrative Medical decision making narrative: Patient evaluated for symptoms associated with his high blood pressure. Does have a history of hypertension but has been off meds for about a year now. States he previously was on lisinopril 20 mg. On upon arrival patient's blood pressure was 232/113. While in the ER without intervention his blood pressure distally downtrends and when I was in the room it was 168/92. Differential includes asymptomatic hypertension, hypertensive emergency, ACS, renal insufficiency. Protocol labs obtained including CBC, BMP, troponin, EKG and chest x-ray. Workup largely negative. No signs of endorgan damage associated with hypertension. Is not any focal neurologic deficits and I do not think requires a head CT. Headache is mild and is not sudden onset or consistent with a subarachnoid hemorrhage. Patient's blood pressure started to improve in the ER without intervention however he will be restarted on lisinopril 20 mg. Counseled the importance of following back up with his primary care doctor. He does verbalize agreement understand this plan. Given return precautions. Discharged home in stable condition. Lab Data Attestation: I reviewed the patient's lab results. Labs: Laboratory Results - last 24 hr 03/15/24 19:38 WBC 8.7 RBC 5.88 Hgb 17.0 H Hct 48.1 MCV 81.8 MCH 28.9 MCHC 35.3 RDW Std Deviation 34.3 L RDW Coeff of Darell 11.6 Plt Count 289 MPV 10.2 Immature Gran % (Auto) 0.200 Neut % (Auto) 65.9 Lymph % (Auto) 26.0 [place] % (Auto) 6.3 Eos % (Auto) 0.7 Baso % (Auto) 0.9 Absolute Neuts (auto) 5.7 Absolute Lymphs (auto) 2.26 Nucleated RBC % 0 Sodium 138 Potassium 4.1 Chloride 106 Carbon Dioxide 25.0 Anion Gap 6 BUN 13 Creatinine 0.87 Estim Creat Clear Calc 116.48 Est GFR (MDRD) Af Amer 119 Est GFR (MDRD) Non-Af 98 BUN/Creatinine Ratio 15.0 Glucose 111 H Calcium 8.9 Troponin I High Sens 6 Radiography Diagnostic Testing: Clinical Impression(s) from Imaging Studies Chest X-Ray 03/15/24 19:45 IMPRESSION: No radiographic evidence of acute cardiopulmonary disease. Electronically Signed: Ivanna Mendoza MD at 20:17 EDT Reading Location ID and State: [id number] / Tel , Service support , Rhythm Strip Rhythm Strip: Sinus Rhythm Rate: 54 Ectopy: None EKG Initial EKG: Attestation: I personally reviewed and interpreted this EKG as follows: Interpretation: Sinus Bradycardia Comments: Sinus bradycardia rate of 54 bpm Normal axis Normal intervals Normal ST segments Prior EKG tracings: available for review Prior: Unchanged Discharge Plan Triage Chief Complaint: Hypertension ED Provider: Valorie Reinoso Dx/Rx/DC Orders Clinical Impression: Hypertension Instructions: ED Hypertension New Begin Treatment Prescriptions: New lisinopril 20 mg tablet 20 mg PO DAILY Qty: 30 0RF Primary Care Provider: Mitch Rudd Chi Referrals: Mitch Rudd Chi, MD [Primary Care Provider] - Print Language: [place] Disposition Disposition: Home, Self Care
[2024-03-15 22:11] VITALS: BP 168/92; PULSE 46; RESP 16; TEMP 37.1; O2SAT 97
[2024-03-15 22:11] LABS: Troponin-I HS 6 pg/mL (3.0-78.0)
[2024-03-15] MEDS: Lisinopril 20 MG Tablet PO (22:17)
== END 2024-03-15 22:21 | disposition home or self-care (01) ==
PROVIDERS: Emergency Provider Emergency Medicine; PCP Family Medicine Geriatric Medicine; Visit Provider Emergency Medicine
DX: I10 Essential (primary) hypertension (principal); E11.9 Type 2 diabetes mellitus without complications; E78.5 Hyperlipidemia, unspecified; F17.210 Nicotine dependence, cigarettes, uncomplicated; F17.290 Nicotine dependence, other tobacco product, uncomplicated
CPT/HCPCS: 71045; 80048; 84484; 85025; 93005; 99284; A4216

== ENCOUNTER 2024-03-26 09:13 | Observation (INO) | payer SELFPAY ==
[2024-03-26] VITALS (10 sets, daily range): BP systolic 139–184; BP diastolic 77–106; PULSE 51–73; RESP 15–18; TEMP 36.7–36.9; O2SAT 97–100; BMI 28.1; BMI 36.1; BMI 35.5
[2024-03-26 09:48] LABS: Absolute Lymphocyte Count 1.78 X10^3/uL (0.83-4.51); Absolute Neutrophil Count 5.7 X10^3/uL (2.0-7.7); Basophil# 0.06 X10^3/uL; Basophil% 0.7 % (0-1); Eosinophil# 0.04 X10^3/uL; Eosinophils% 0.5 % (0-5); Hematocrit 52.5 % (40-54); Hemoglobin 17.5 g/dL (13.0-16.5); Lymphocyte # 1.78 X10^3/ul (0.83-4.51); Lymphocyte % 22.2 % (19-41); Mean Corp Hgb Conc 33.3 g/dL (32-36); Mean Corpuscular Hgb 27.8 pg (27.0-32.0); Mean Corpuscular Volume 83.3 fL (80-94); Mean Platelet Vol. 9.7 fl (6.2-12.0); Monocyte# 0.39 X10^3/uL; Monocyte% 4.9 % (0-10); NRBC Flagged by Analyzer 0 % (0-5); Neutrophil # 5.72 X10^3/uL (2.7-7.7); Neutrophil % 71.5 % (47-70); Platelet Count 280 K/mm3 (150-450); RBC Distribution Width CV 11.6 % (11.6-14.6); RBC Distribution Width SD 35.5 fl (35.1-43.9)
[2024-03-26 09:57] LABS: Anion Gap 8 (5-15); BUN 13 mg/dL (7-18); BUN/Creat Ratio 12.3 RATIO (10-20); Calcium,Total 9.6 mg/dL (8.5-10.1); Chloride 105 mmol/L (98-107); Creatinine, Serum 1.06 mg/dL (0.70-1.30); EST Glomerular Filtration Rate 78 mL/min (>60); Est Glom Filt Rate - Afr Amer 94 mL/min (>60); Estimated Creatinine Clearance 83.39 ml/min; Glucose 173 mg/dL (74-106); Potassium 3.9 mmol/L (3.5-5.1); Sodium Level 138 mmol/L (136-145); Troponin-I HS (w/2H Reflex) 16 pg/mL (3.0-78.0)
[2024-03-26 11:37] LABS: Reflex Troponin-HS? (from REC) Y
[2024-03-26 12:10] LABS: Troponin-I HS 58 pg/mL (3.0-78.0)
[2024-03-26] MEDS: Aspirin 81 MG TAB.CHEW 324 MG PO (12:27)
[2024-03-26] MEDS: Lisinopril 20 MG Tablet PO (13:55)
[2024-03-26 16:06] LABS: Troponin-I HS 54 pg/mL (3.0-78.0)
[2024-03-27 03:15] VITALS: BP 162/93; PULSE 66; RESP 18; TEMP 36.3; O2SAT 99
[2024-03-27 06:07] VITALS: BP 168/88; PULSE 55; RESP 18; TEMP 36.4; O2SAT 100
[2024-03-27] MEDS: 0.9% Saline Lock 10 ML Syringe IV ×2 (06:10→12:45)
[2024-03-27] MEDS: Lisinopril 20 MG Tablet PO (06:10)
[2024-03-27] MEDS: Aspirin 81 MG TAB.CHEW PO (06:10)
[2024-03-27 06:24] LABS: Absolute Neutrophil Count 4.4 X10^3/uL (2.0-7.7); Basophil# 0.06 X10^3/uL; Basophil% 0.8 % (0-1); Eosinophil# 0.05 X10^3/uL; Eosinophils% 0.7 % (0-5); Hematocrit 52.7 % (40-54); Hemoglobin 17.9 g/dL (13.0-16.5); Lymphocyte % 34.4 % (19-41); Mean Corpuscular Hgb 28.3 pg (27.0-32.0); Mean Corpuscular Volume 83.3 fL (80-94); Monocyte# 0.39 X10^3/uL; Monocyte% 5.2 % (0-10); NRBC Flagged by Analyzer 0 % (0-5); Neutrophil # 4.44 X10^3/uL (2.7-7.7); Neutrophil % 58.8 % (47-70); Platelet Count 295 K/mm3 (150-450); RBC Distribution Width CV 11.6 % (11.6-14.6); RBC Distribution Width SD 34.5 fl (35.1-43.9); Red Blood Count 6.33 M/mm3 (4.6-6.2); White Blood Count 7.6 K/mm3 (4.4-11.0)
[2024-03-27 06:46] LABS: Anion Gap 5 (5-15); BUN 13 mg/dL (7-18); BUN/Creat Ratio 14.4 RATIO (10-20); Calcium,Total 9.4 mg/dL (8.5-10.1); Chloride 106 mmol/L (98-107); EST Glomerular Filtration Rate 94 mL/min (>60); Est Glom Filt Rate - Afr Amer 114 mL/min (>60); Estimated Creatinine Clearance 109.76 ml/min; Glucose 131 mg/dL (74-106); Magnesium 2.1 mg/dL (1.6-2.6); Phosphorus 4.1 mg/dL (2.5-4.9); Sodium Level 136 mmol/L (136-145)
[2024-03-27 10:16] VITALS: BP 167/90; PULSE 52; RESP 18; TEMP 37; O2SAT 100
[2024-03-27] MEDS: hydroCHLOROthiazide 25 MG Tablet PO (10:37)
[2024-03-27] MEDS: amLODIPine 10 MG Tablet PO (10:37)
[2024-03-27 11:02] LABS: Hemoglobin A1c 5.8 % (3.8-5.6)
[2024-03-27 12:00] VITALS: BP 168/99; PULSE 57
[2024-03-27 12:44] VITALS: PULSE 57
[2024-03-27] MEDS: hydrALAZINE 20 MG/ML Vial IV (12:44)
[2024-03-27 13:30] VITALS: BP 148/66; PULSE 88; RESP 18; TEMP 36.9; O2SAT 99
== END 2024-03-27 11:54 | disposition home or self-care (01) ==
LOC: ED 12:32 → PCU 12:40
PROVIDERS: Admitting Provider Internal Medicine; Emergency Provider Emergency Medicine; PCP Family Medicine Geriatric Medicine; Visit Provider Internal Medicine
DX: R07.89 Other chest pain (principal); B18.0 Chronic viral hepatitis B with delta-agent; E11.9 Type 2 diabetes mellitus without complications; Z79.82 Long term (current) use of aspirin; E78.5 Hyperlipidemia, unspecified; Z87.891 Personal history of nicotine dependence; I10 Essential (primary) hypertension; R79.89 Other specified abnormal findings of blood chemistry; Z79.899 Other long term (current) drug therapy; R42 Dizziness and giddiness; E66.812 Obesity, class 2; Z68.36 Body mass index [BMI] 36.0-36.9, adult
CPT/HCPCS: 36415; 71046; 78452; 80048; 83036; 83735; 84100; 84484; 85025; 93005; 93017; 93306; 96374; 99221; 99284; 99406; A9500; Q9957; A4216; C8929; G0378; J2785

== ENCOUNTER 2024-03-30 12:00 | Emergency (ER) | payer MEDICAID, SELFPAY ==
[2024-03-30 12:03] VITALS: BP 122/71; PULSE 83; RESP 18; TEMP 36.6; O2SAT 99; BMI 35.0
--- NOTE | 2024-03-30 12:03 | EKG12_ITS ---
Test Reason : CP Blood Pressure : */* mmHG Vent. Rate : 78 BPM Atrial Rate : 78 BPM P-R Int : 104 ms QRS Dur : 86 ms QT Int : 382 ms P-R-T Axes : 29 41 -11 degrees QTcB Int : 435 ms Sinus rhythm with short HI T wave abnormality, consider inferior ischemia Abnormal ECG Confirmed by NACHO RED, ANTHONY ([id number]), book or script editor GLADYS WILSON ([id number]) on 03/31/2024 9:45:52 AM Referred By: CHADWICK Confirmed By: ANTHONY GRIFFITH MD
--- NOTE | 2024-03-30 12:10 | RAD_ITS ---
EXAM: XR CHEST, 1 VIEW CLINICAL INDICATION: chest pain TECHNIQUE: Frontal view of the chest. COMPARISON: 03/26/2024 FINDINGS: LUNGS AND PLEURAL SPACES: No significant abnormality. No consolidation or edema. No pneumothorax. No effusion. HEART: No significant abnormality. Cardiac silhouette not enlarged. MEDIASTINUM: Central airways and mediastinal contour are unremarkable. BONES/JOINTS: No significant abnormality. No acute fracture. SOFT TISSUES: No significant abnormality. RAD/Chest 1 View (Portable) IMPRESSION: No radiographic evidence of acute cardiopulmonary disease. Electronically Signed: Jim Hodge DO at 12:36 EST ,
--- NOTE | 2024-03-30 12:16 | EDS_ITS ---
HPI History of Present Illness Chief Complaint: Chest Pain Informant: patient Onset/Context/Timing Onset: Today and Hours Activity at onset: gradual Timing: Continuous Quality: Positive for Dull and Pain Location: Left Chest Current Severity: Mild Maximum Severity: Mild Worsened By: Nothing Relieved By: Nothing Associated Symptoms: Negative for Nausea, Vomiting, Diaphoresis, Dyspnea, Cough, Fever, Lightheadedness, Acid Reflux or Palpitations Narrative Narrative: 53-year-old male history diabetes and hypertension. Recently just had an admission and stress test on 1114, 3 days ago, that was negative. He had ejection fraction of around 62%. Patient states he walked around his neighborhood that he had no exertional chest pain or dyspnea. He said he was at home he has multiple children he said he has a problem with anger at times and he got upset and developed this left-sided chest discomfort. No radiation of the pain. No shortness of breath. No nausea. Prior Similar Symptoms: Yes Recent Illness/Hospitalization: Yes CVD Risk Factors: Positive for Hypertension and Diabetes PE Risk Factors: Negative for Recent Travel/Surgery, Prior DVT or PE, Cancer or OCP + Smoking + >/=35 TAD Risk Factors: Negative for Marfan's Syndrome [facility] Medical History Polycythemia Chronic viral hepatitis B with delta-agent Anxiety HLD (hyperlipidemia) Elevated LFTs Type 2 diabetes mellitus Fatty liver HTN (hypertension) Home Medications ?Medication ?Instructions ?Recorded ?Last Taken ?Type amlodipine 10 mg tablet 10 mg PO DAILY #90 tabs 03/27/24 Unknown Rx aspirin 81 mg capsule 81 mg PO DAILY #9 caps 03/27/24 Unknown Rx hydrochlorothiazide 25 mg tablet 25 mg PO DAILY #90 tabs 03/27/24 Unknown Rx lisinopril 20 mg tablet 20 mg PO DAILY #90 tabs 03/27/24 Unknown Rx Allergy/AdvReac Type Severity Reaction Status Date / Time hydralazine AdvReac Mild Vomiting Verified 03/30/24 12:01 Social History Smoking Status: Former smoker alcohol intake: current substance use type: does not use ROS ROS ED ROS Narrative Chest pain. Constitutional Constitutional ED: Denies chills or fever(s) Eyes Eyes: Reports none ENT ENT ED: Denies ear pain Cardiovascular Cardiovascular: Reports as per HPI and chest pain; Denies palpitations or racing heartbeat Respiratory/Chest Respiratory/Chest: Denies cough or dyspnea Gastrointestinal Gastrointestinal: Denies abdominal pain Genitourinary Genitourinary ED: Denies dysuria or hematuria Musculoskeletal Musculoskeletal: Denies arthralgias or back pain Integumentary Denies abscess Neurologic Neurologic: Denies headache(s) Psychiatric Psychiatric: Denies anxiety Endocrine Endocrinology: Denies cold intolerance Hematologic/Lymphatic Hematologic/Lymphatic: Denies easy bleeding Allergic/Immunologic Allergic/Immunologic ED: Denies mouth swelling, tongue swelling or urticaria EXAM Physical Exam Narrative Exam Narrative: Well-appearing 53-year-old male. Vital signs stable afebrile. Pulse ox 99% on room air no hypoxia. H EENT exam unremarkable. Neck nontender no JVD. Lungs clear to auscultation bilaterally. Heart regular rate and rhythm rate about 80 no murmur. Chest wall and ribs nontender. No ecchymosis or bruising. No reproducible pain. Abdomen is soft and nontender. No peritoneal signs. Patient is moving all 4 extremities. They are nontender. There is no edema or cords. Equal and symmetrical conductor sleeping car strength. Dorsi plantarflexion intact. Equal symmetrical radial pulses. Back is nontender. Neurologically is awake alert no focal motor deficits. Answering questions following commands. Const Vital Signs: 03/30/24 12:00 03/30/24 12:03 03/30/24 12:53 Temperature 98 F Temperature Source Oral Pulse Rate 83 59 L Respiratory Rate 18 14 Respiratory Effort Normal Non-Labored Blood Pressure 122/71 H 141/89 H Blood Pressure Mean 88 106 Pulse Ox 99 98 Oxygen Delivery Method Room Air Room Air 03/30/24 14:38 Temperature 98 F Temperature Source Pulse Rate 60 Respiratory Rate 18 Respiratory Effort Blood Pressure 136/70 H Blood Pressure Mean 92 Pulse Ox 99 Oxygen Delivery Method Positive well nourished and well developed; Negative for cachectic, contractures or unkempt General Appearance ED: well developed and NAD; Negative for unkempt, cachectic, contractures or pallor Nutritional Appearance: Negative for cachectic HEENT Reports moist mucous membranes normocephalic and atraumatic; Negative for trauma or tenderness Eyes PERRL and EOMs intact bilaterally General Eye ED: Negative for pale conjunctiva Neck no lymphadenopathy, supple and no JVD General: Negative for tenderness Chest Wall inspection of chest normal and palpation of chest normal Chest: Negative for tenderness Resp normal respiratory effort Effort and Inspection: Negative for respiratory distress Auscultation: Negative for rales, rhonchi or wheezes Cardio regular rate, regular rhythm, S1 normal heart sound, S2 normal heart sound and no murmurs Rate: Negative for bradycardia or tachycardic Rhythm: Negative for abnormal rhythm Peripheral Pulses: pulses 2+ throughout GI normal to inspection, nondistended, normoactive bowel sounds, soft to palpation, non-tender, non-distended and no masses Back/Spine no CVA tenderness and no thoracic nor lumbar tenderness Extremity normal to inspection General Extremety ED: Negative for edema, pulses abnormal or tenderness General Extremity: Negative for edema or pulses abnormal Neuro oriented x3 and CN's II-XII intact bilaterally Sensorium / Orientation: awake, alert, oriented to person, oriented to place and oriented to time; Negative for confused, lethargic or stuporous Motor Exam: strength 5/5 throughout Psych mental status grossly normal Appearance: Negative for unkempt Skin no rashes or lesions noted and no wounds General Skin Exam: Negative for jaundice or pallor Rashes: No rashes noted Trauma: Negative for abrasion or laceration Heart Score History: Slightly/Non-Suspicious Age: >45 - <65 years Risk Factors: 1 or 2 Risk Factors Troponin: </= Normal Limit Score: 2 MDM MDM MDM Narrative Medical decision making narrative: 53-year-old male with nonreproducible left-sided chest pain that is not exertional. Notably he was recently in the hospital in the last several days had a negative stress test and cardiac workup at that time. Exam is benign. Pain is not reproducible. Undergo a cardiac workup. He was brought in by squad they gave him 1 sublingual nitro and aspirin already. Multiple repeat exams. The most recent one was at 2:55 PM. Patient is doing well. Resting comfortably. No pain. I had a lengthy discussion with he and his . This may be secondary anxiety. Or stress. Their current with him being discharged home with outpatient follow-up with his primary care physician History & Record Review Discussion w/independent historian: Patient Additional record(s) reviewed:: Prior inpatient record, Prior outpatient record, Prior ED visit and Prior labs Lab Data Attestation: I reviewed the patient's lab results. Lab results narrative: CBC shows a white count of 10. H&H 18.6 and 54. Has a history of elevated hemoglobin is in the past. Platelets of 390. Chest x-ray unremarkable. EKG unremarkable. Chemistry shows sodium 134. Gap 10. BUN of 18 creatinine 1.34. Glucose 203. Initial troponin is 9. Repeat 2-hour troponin was normal and 26. Labs: Laboratory Results - last 24 hr 03/30/24 03/30/24 12:01 13:50 WBC 10.0 RBC 6.63 H Hgb 18.6 H* Hct 54.5 H MCV 82.2 MCH 28.1 MCHC 34.1 RDW Std Deviation 34.8 L RDW Coeff of Darell 11.5 L Plt Count 390 MPV 10.0 Immature Gran % (Auto) 0.300 Neut % (Auto) 68.0 Lymph % (Auto) 23.8 [place] % (Auto) 6.1 Eos % (Auto) 0.9 Baso % (Auto) 0.9 Absolute Neuts (auto) 6.8 Absolute Lymphs (auto) 2.38 Nucleated RBC % 0 Diff Path Review May foll Sodium 134 L Potassium 4.2 Chloride 97 L Carbon Dioxide 27.0 Anion Gap 10 BUN 18 Creatinine 1.34 H Estim Creat Clear Calc 73.24 Est GFR (MDRD) Af Amer 72 Est GFR (MDRD) Non-Af 59 L BUN/Creatinine Ratio 13.4 Glucose 203 H Calcium 9.9 Troponin I High Sens 9 26 Radiography Chest X-Ray - ED: 1 View, Read by ED Physician, Heart, Lungs, Mediastinum, Bony Structures, No Acute Disease and Chronic Changes Diagnostic Testing: Clinical Impression(s) from Imaging Studies Chest X-Ray 03/30/24 12:10 IMPRESSION: No radiographic evidence of acute cardiopulmonary disease. Electronically Signed: Jim Hodge DO at 12:36 EST , Chest x-ray, portable, single view, interpreted by myself shows normal cardiac silhouette. Normal mediastinum. Normal lung best. Chronic changes no acute process. Rhythm Strip Rhythm Strip: Sinus Rhythm Rate: 78 Ectopy: None EKG Initial EKG: Attestation: I personally reviewed and interpreted this EKG as follows: Interpretation: Sinus Rhythm and No Acute Injury Pattern Comments: Normal sinus rhythm rate of 78 no acute signs of KS or ischemia. He does have inverted T waves in V2 and V3. No ST elevation. Follow-up EKG: Attestation: I personally reviewed and interpreted this EKG as follows: Interpretation: Sinus Rhythm and No Acute Injury Pattern Comments: Normal sinus rhythm rate of 62. Nonspecific inverted T waves seen 2, 3, aVF, V3 through V6. Discharge Plan Triage Chief Complaint: Chest Pain ED Provider: Paulino Blair Dx/Rx/DC Orders Clinical Impression: Chest pain, Hypertension, History of diabetes mellitus Instructions: ED Chest Pain, Uncertain Cause Prescriptions: No Action amlodipine 10 mg Tablet 10 mg PO DAILY Qty: 90 0RF hydrochlorothiazide 25 mg Tablet 25 mg PO DAILY Qty: 90 0RF lisinopril 20 mg tablet 20 mg PO DAILY Qty: 90 0RF aspirin 81 mg capsule 81 mg PO DAILY Qty: 9 0RF Primary Care Provider: Mitch Rudd Chi Referrals: Mitch Rudd Chi, MD [Primary Care Provider] - 1 Week Activity Restrictions/Additional Instructions: Log your blood pressures twice a day when you are calm and relaxed and then follow-up with Dr. Rudd so we can evaluate those to see if needs to doing that with your blood pressure medications. As long as well-controlled your blood pressure medications will not need to be changed. If it is running low they may have to decrease your blood pressure medications or stop one of them. Your labs today all look good. Outpatient follow-up with your primary care physician. Print Language: Stateless Disposition Disposition: Home, Self Care
[2024-03-30 12:17] LABS: Absolute Lymphocyte Count 2.38 X10^3/uL (0.83-4.51); Absolute Neutrophil Count 6.8 X10^3/uL (2.0-7.7); Basophil# 0.09 X10^3/uL; Basophil% 0.9 % (0-1); Eosinophil# 0.09 X10^3/uL; Eosinophils% 0.9 % (0-5); Hematocrit 54.5 % (40-54); Lymphocyte # 2.38 X10^3/ul (0.83-4.51); Lymphocyte % 23.8 % (19-41); Mean Corp Hgb Conc 34.1 g/dL (32-36); Mean Corpuscular Hgb 28.1 pg (27.0-32.0); Mean Corpuscular Volume 82.2 fL (80-94); Monocyte# 0.61 X10^3/uL; Monocyte% 6.1 % (0-10); NRBC Flagged by Analyzer 0 % (0-5); Platelet Count 390 K/mm3 (150-450); RBC Distribution Width CV 11.5 % (11.6-14.6); RBC Distribution Width SD 34.8 fl (35.1-43.9); Red Blood Count 6.63 M/mm3 (4.6-6.2)
[2024-03-30 12:21] LABS: Differential Indicated SCAN CRITERIA MET; Hemoglobin 18.6 g/dL (13.0-16.5)
[2024-03-30 12:39] LABS: Anion Gap 10 (5-15); BUN 18 mg/dL (7-18); BUN/Creat Ratio 13.4 RATIO (10-20); Calcium,Total 9.9 mg/dL (8.5-10.1); Chloride 97 mmol/L (98-107); Creatinine, Serum 1.34 mg/dL (0.70-1.30); EST Glomerular Filtration Rate 59 mL/min (>60); Est Glom Filt Rate - Afr Amer 72 mL/min (>60); Estimated Creatinine Clearance 73.24 ml/min; Glucose 203 mg/dL (74-106); Potassium 4.2 mmol/L (3.5-5.1); Sodium Level 134 mmol/L (136-145); Troponin-I HS (w/2H Reflex) 9 pg/mL (3.0-78.0)
--- NOTE | 2024-03-30 12:50 | EKG12_ITS ---
Test Reason : CP Blood Pressure : */* mmHG Vent. Rate : 62 BPM Atrial Rate : 62 BPM P-R Int : 98 ms QRS Dur : 82 ms QT Int : 438 ms P-R-T Axes : 37 28 8 degrees QTcB Int : 444 ms Sinus rhythm with short [place] T wave abnormality, consider lateral ischemia Abnormal ECG Confirmed by NACHO RED, ANTHONY ([id number]), material expeditor GLADYS WILSON ([id number]) on 03/31/2024 9:46:18 AM Referred By: CHADWICK Confirmed By: ANTHONY GRIFFITH MD
[2024-03-30 12:53] VITALS: BP 141/89; PULSE 59; RESP 14; O2SAT 98
[2024-03-30 14:08] LABS: Reflex Troponin-HS? (from REC) Y
[2024-03-30 14:36] LABS: Troponin-I HS 26 pg/mL (3.0-78.0)
[2024-03-30 14:38] VITALS: BP 136/70; PULSE 60; RESP 18; TEMP 36.6; O2SAT 99
--- NOTE | 2024-03-30 14:39 | ED.RN ---
reported to RN that when pt had chest pain today, he had an episode of stiffening, and eyes rolling back in to head. Pt reported he had been yelling and was feeling angry.
[2024-03-31 14:11] LABS: Pathologist Review Reviewed
== END 2024-03-30 15:04 | disposition home or self-care (01) ==
PROVIDERS: Emergency Provider Emergency Medicine; PCP Family Medicine Geriatric Medicine; Visit Provider Emergency Medicine
DX: R07.9 Chest pain, unspecified (principal); E11.9 Type 2 diabetes mellitus without complications; E78.5 Hyperlipidemia, unspecified; I10 Essential (primary) hypertension; Z87.891 Personal history of nicotine dependence; Z79.82 Long term (current) use of aspirin
CPT/HCPCS: 71045; 80048; 84484; 85025; 93005; 99285; A4216

== ENCOUNTER → 2024-04-21 | Outpatient (CLI) | payer MEDICAID, SELFPAY ==
[2024-04-21 10:12] LABS: Absolute Lymphocyte Count 2.16 X10^3/uL (0.83-4.51); Absolute Neutrophil Count 4.1 X10^3/uL (2.0-7.7); Basophil# 0.06 X10^3/uL; Basophil% 0.9 % (0-1); Eosinophil# 0.09 X10^3/uL; Eosinophils% 1.3 % (0-5); Hematocrit 48.3 % (40-54); Hemoglobin 16.3 g/dL (13.0-16.5); Lymphocyte # 2.16 X10^3/ul (0.83-4.51); Lymphocyte % 30.9 % (19-41); Mean Corp Hgb Conc 33.7 g/dL (32-36); Mean Corpuscular Hgb 28.2 pg (27.0-32.0); Mean Corpuscular Volume 83.6 fL (80-94); Monocyte# 0.55 X10^3/uL; Monocyte% 7.9 % (0-10); NRBC Flagged by Analyzer 0 % (0-5); Neutrophil # 4.13 X10^3/uL (2.7-7.7); Neutrophil % 58.9 % (47-70); Platelet Count 291 K/mm3 (150-450); RBC Distribution Width CV 11.4 % (11.6-14.6); RBC Distribution Width SD 34.5 fl (35.1-43.9); Red Blood Count 5.78 M/mm3 (4.6-6.2)
[2024-04-21 11:00] LABS: AST(SGOT) 18 U/L (15-37); Alanine Aminotransfer ALT/SGPT 36 U/L (16-61); Albumin, Serum 3.9 g/dL (3.2-5.0); Alkaline Phosphatase 70 U/L (45-117); Anion Gap 6 (5-15); BUN 15 mg/dL (7-18); Calcium,Total 9.1 mg/dL (8.5-10.1); Chloride 104 mmol/L (98-107); Cholesterol 141 mg/dL (200); Creatinine, Serum 0.94 mg/dL (0.70-1.30); EST Glomerular Filtration Rate 89 mL/min (>60); Est Glom Filt Rate - Afr Amer 108 mL/min (>60); Globulin 3.9 g/dL (2.2-4.2); Glucose 124 mg/dL (74-106); High Density Lipoprotein 45 mg/dL; Potassium 4.2 mmol/L (3.5-5.1); Protein, Total 7.8 g/dL (6.4-8.2); Sodium Level 138 mmol/L (136-145); Thyroid Stim Hormone (TSH) 0.887 uIU/mL (0.358-3.740); Triglycerides 117 mg/dL; Very Low Density Lipoprotein 23 mg/dL (5-40)
[2024-04-21 11:38] LABS: Hemoglobin A1c 6.2 % (3.8-5.6)
[2024-04-21 11:41] LABS: Microalbumin,Random Urine 26.4 mg/L (NO RANGE EST.)
== END | disposition home or self-care (01) ==
LOC: POLAB3 09:37
PROVIDERS: PCP Family Medicine Geriatric Medicine; Visit Provider Family Medicine Geriatric Medicine
DX: E11.65 Type 2 diabetes mellitus with hyperglycemia (principal); I10 Essential (primary) hypertension; E78.5 Hyperlipidemia, unspecified
CPT/HCPCS: 36415; 80053; 80061; 82043; 83036; 84443; 85025

== ENCOUNTER 2024-05-04 18:16 | Observation (INO) | payer MEDICAID, SELFPAY ==
[2024-05-04 18:17] VITALS: BP 171/90; PULSE 69; RESP 18; TEMP 36.1; O2SAT 100; BMI 36.1
[2024-05-04 18:27] VITALS: O2SAT 99
[2024-05-04] MEDS: Epi Pen (EQUIV) 0.3 MG Syringe IM (18:33)
[2024-05-04] MEDS: MethylPREDNISolone 125 MG/2 ML Vial IV (18:33)
[2024-05-04] MEDS: DiphenhydrAMINE 50 MG/ML Syringe IV (18:33)
[2024-05-04] MEDS: Famotidine 200 MG/20 ML MDV 20 MG in 0.9% Normal Saline (Pres. free 8 ML 300 MG IV (18:38)
--- NOTE | 2024-05-04 18:46 | EDS_ITS ---
HPI History of Present Illness Chief Complaint: Allergic Reaction Narrative Narrative: Chief complaint and HPI: Tongue swelling. 53-year-old male with past medical history of HTN presents for evaluation of tongue swelling. Patient states that he was watching TV approximately 30 minutes prior to arrival when he noticed tongue swelling. He states that his tongue continued to swell which is why he presents for evaluation. He denies any history of anaphylaxis. Denies allergies to any food or medication other than hydralazine. Patient does take lisinopril. He states that he has been on this medication for a while. He denies any new changes in food, body products, detergents. He denies any fever, chills, shortness of breath, chest pain, wheezing, stridor, nausea, vomiting, abdominal pain. Review of systems: See HPI Medications: As listed on the chart Allergies: As listed on the chart PFSH: Per chart Vital signs: As listed on the chart. Reviewed. Physical exam: Gen: A&O x3 Head: Normocephalic, atraumatic Eyes: No sclera icterus, conjunctiva clear, PERRL, EOMI, no periorbital edema ENT: Moist mucous membranes, tolerating secretions, tongue enlarged, unable to see posterior oropharynx or uvula, poor dentition, no submandibular swelling, no lip or facial swelling Neck: Trachea midline, No JVD, Full ROM, no swelling CV: RRR, no murmurs Resp: Lungs CTA BL, no w/r/c, no stridor GI: Abd soft, non-distended, non-tender, no r/r/g Musc: Full ROM, no deformity Skin: Warm, dry, no rash Neuro: Alert, oriented, grossly intact, sensation intact Psych: Cooperative, appropriate mood and affect [facility] Medical History Polycythemia Chronic viral hepatitis B with delta-agent Anxiety HLD (hyperlipidemia) Elevated LFTs Type 2 diabetes mellitus Fatty liver HTN (hypertension) Home Medications ?Medication ?Instructions ?Recorded ?Last Taken ?Type amlodipine 10 mg tablet 10 mg PO DAILY #90 tabs 03/27/24 Unknown Rx aspirin 81 mg capsule 81 mg PO DAILY #9 caps 03/27/24 Unknown Rx hydrochlorothiazide 25 mg tablet 25 mg PO DAILY #90 tabs 03/27/24 Unknown Rx lisinopril 20 mg tablet 20 mg PO DAILY #90 tabs 03/27/24 Unknown Rx Allergy/AdvReac Type Severity Reaction Status Date / Time lisinopril Allergy Severe Angioedema Verified 05/04/24 18:23 hydralazine AdvReac Mild Vomiting Verified 05/04/24 18:17 Social History Smoking Status: Current every day smoker tobacco type: cigarettes and e- cigarettes alcohol intake: current substance use type: does not use EXAM Physical Exam Const Vital Signs: 05/04/24 18:17 05/04/24 18:27 05/04/24 19:15 Temperature 97 F L Temperature Source Temporal Pulse Rate 69 61 Respiratory Rate 18 16 Respiratory Effort Normal Respiratory Depth Normal Respiratory Pattern Normal Blood Pressure 171/90 H 139/76 H Blood Pressure Mean 117 97 Pulse Ox 100 98 Oxygen Delivery Method Room Air Room Air Room Air MDM MDM MDM Narrative Medical decision making narrative: 53-year-old male with past medical history of HTN presents for evaluation of tongue swelling. Differential diagnosis includes but is not limited to QUANG induced angioedema, allergic angioedema. Patient denies any family history of angioedema suspect less likely hereditary angioedema. Given that I cannot fully rule out allergic reaction IM epinephrine, IV Benadryl, IV Pepcid, IV Solu- Medrol ordered. TXA ordered for likely QUANG induced angioedema. Patient will be monitored. Patient was monitored for almost 2 hours in the emergency department without any improvement in his tongue swelling. At this point in time, patient will warrant observation to monitor for continued swelling/airway protection. Patient was updated of the plan and confirmed understanding. Patient was discussed with Dr. Mcdaniel who accepted. Impression: 1. QUANG inhibitor angioedema Discharge Plan Triage Chief Complaint: Allergic Reaction ED Provider: Mike Yanes Dx/Rx/DC Orders Prescriptions: No Action amlodipine 10 mg Tablet 10 mg PO DAILY Qty: 90 0RF hydrochlorothiazide 25 mg Tablet 25 mg PO DAILY Qty: 90 0RF lisinopril 20 mg tablet 20 mg PO DAILY Qty: 90 0RF aspirin 81 mg capsule 81 mg PO DAILY Qty: 9 0RF Primary Care Provider: Mitch Rudd Chi Referrals: Mitch Rudd Chi, MD [Primary Care Provider] - Print Language: Hungarian
[2024-05-04] MEDS: TRANEXAMIC ACID 1,000 MG in 0.9% Normal Saline (100mL Bag) 100 ML 440 MG IV (18:47)
[2024-05-04 19:15] VITALS: BP 139/76; PULSE 61; RESP 16; O2SAT 98
[2024-05-04 20:00] VITALS: BP 128/72; PULSE 61; RESP 14; TEMP 37.5; O2SAT 95
--- NOTE | 2024-05-04 20:18 | PCM.HP.STD ---
HPI - General General Date of Admission: 05/04/24 HPI Narrative EVAN MORAN, is a 53 M who presents to the hospital with allergic reaction, the only medication he takes is lisinopril that could have caused a reaction like this. He denies any shortness of breath, or new food. In the ER he was given a dose of Benadryl as well as epinephrine, Pepcid, Solu-Medrol, tranexamic acid. Airway does not appear compromised he does have an enlarged tongue and he is 98% on room air. [facility] Medical History Polycythemia Chronic viral hepatitis B with delta-agent Anxiety HLD (hyperlipidemia) Elevated LFTs Type 2 diabetes mellitus Fatty liver HTN (hypertension) Home Medications ?Medication ?Instructions ?Recorded ?Last Taken ?Type amlodipine 10 mg tablet 10 mg PO DAILY #90 tabs 03/27/24 Unknown Rx aspirin 81 mg capsule 81 mg PO DAILY #9 caps 03/27/24 Unknown Rx hydrochlorothiazide 25 mg tablet 25 mg PO DAILY #90 tabs 03/27/24 Unknown Rx lisinopril 20 mg tablet 20 mg PO DAILY #90 tabs 03/27/24 Unknown Rx citalopram 20 mg tablet 20 mg PO DAILY 05/04/24 Unknown History Allergy/AdvReac Type Severity Reaction Status Date / Time lisinopril Allergy Severe Angioedema Verified 05/04/24 18:23 hydralazine AdvReac Mild Vomiting Verified 05/04/24 18:17 Family History adopted adopted Surgical History no surgical history no surgical history Social History Smoking Status: Current every day smoker tobacco type: cigarettes and e-cigarettes alcohol intake: current substance use type: does not use ROS Constitutional Constitutional: Denies chills, fatigue, fever(s) or malaise Eyes Eyes: Denies blurry vision ENT HEENT: Reports tongue swelling; Denies headache(s) or nasal discharge Cardiovascular Cardiovascular: Denies chest pain, dyspnea on exertion or syncope Respiratory/Chest Respiratory/Chest: Denies cough, shortness of breath at rest or shortness of breath with exertion Gastrointestinal Gastrointestinal: Denies constipation, diarrhea, nausea or vomiting Genitourinary Genitourinary: Denies dysuria Neurologic Neurologic: Denies focal weakness, numbness or tremor(s) Psychiatric Psychiatric: Denies anxiety or depression Vital Signs Vital Signs Vital Signs: 05/04/24 18:17 05/04/24 18:27 05/04/24 19:15 Temperature 97 F L Temperature Source Temporal Pulse Rate 69 61 Respiratory Rate 18 16 Respiratory Effort Normal Respiratory Depth Normal Respiratory Pattern Normal Blood Pressure 171/90 H 139/76 H Blood Pressure Mean 117 97 Pulse Ox 100 98 Oxygen Delivery Method Room Air Room Air Room Air 05/04/24 20:00 Temperature 99.5 F H Temperature Source Pulse Rate 61 Respiratory Rate 14 Respiratory Effort Respiratory Depth Respiratory Pattern Blood Pressure 128/72 H Blood Pressure Mean 90 Pulse Ox 95 Oxygen Delivery Method Weight Weight: 231 lb 0.711 oz Body Mass Index (BMI) 36.1 Physical Exam Narrative General: Alert, Oriented x3, Cooperative, No apparent distress HEENT: Atraumatic, PERRLA, EOMI, Normocephalic Oral: Moist Mucosa, enlarged tongue with no airway compromise Neck: Supple, No JVD Lungs: Clear to auscultation, Normal air movement, No rhonchi, No wheeze, No rales Cardiovascular: Regular rate, Regular Rhythm, Normal S1, Normal S2, No murmurs Abdomen: Soft, Non Tender, Non-Distended, No Hepato-splenomegaly Extremities: No edema, Capillary Refill Less than 3 Seconds Skin: No rashes, No breakdown Musculoskeletal: No Tenderness to Palpation of Joints or Extremities Neurological: No focal neurological deficits, Motor Exam 5/5 strength throughout, Sensory exam intact to light touch and pain Psych/Mental Status: Normal Affect, Appropriate Assessment & Plan Assessment/Plan (1) Allergic reaction: PLAN: Plan 1. Allergic reaction ? Unclear if whether he was to lisinopril or something else, he denies any new foods ?He has already received treatment in the ER ? Will monitor and discharge tomorrow morning 2. Essential HTN ? Can resume his home medications except for lisinopril ? Will monitor his blood pressures and make adjustments as necessary DVT: Ambulation Charges/Coding Visit Charges Inpatient E&M: 01773 Init Hosp L2
[2024-05-04 20:59] VITALS: BP 132/76; PULSE 65; RESP 16; TEMP 36.9; O2SAT 96
[2024-05-04 21:00] VITALS: BMI 35.2
[2024-05-05 02:17] VITALS: BP 117/58; PULSE 73; RESP 16; TEMP 36.7; O2SAT 96
[2024-05-05 09:50] VITALS: BP 119/74; PULSE 77; RESP 16; TEMP 36.8; O2SAT 98
[2024-05-05] MEDS: Aspirin 81 MG TAB.CHEW PO (09:54)
[2024-05-05] MEDS: amLODIPine 10 MG Tablet PO (09:59)
[2024-05-05] MEDS: hydroCHLOROthiazide 25 MG Tablet PO (09:59)
--- NOTE | 2024-05-05 11:19 | DCINST_ITS ---
Discharge Instructions Diet Discharge Diet: No restrictions DC O2, CPAP, BIPAP needs Home O2 Discharge instructions: No Dressing / Incision Discharge Activity: Return to Normal Activity Weight Bearing Status: Full weight bearing Follow Up Care Test Results: Test results from this visit will be discussed in further detail at your follow- up appointment, if applicable. Discharge Plan Admission Admit Date/Time: 05/04/24 20:17 Primary Reason for Your Visit: allergic reaxtion to lisinopril Attending Provider: Seamus Moseley Primary Care Provider: Mitch Rudd Chi Consulting Providers: Anderson Mcdaniel Discharge Orders/Prescriptions Prescriptions: New metoprolol succinate 50 mg tablet extended release 24 hr 50 mg PO DAILY Qty: 30 0RF Continued amlodipine 10 mg Tablet 10 mg PO DAILY Qty: 90 0RF hydrochlorothiazide 25 mg Tablet 25 mg PO DAILY Qty: 90 0RF aspirin 81 mg capsule 81 mg PO DAILY Qty: 9 0RF citalopram 20 mg tablet 20 mg PO DAILY Discontinued lisinopril 20 mg tablet 20 mg PO DAILY Qty: 90 0RF Referrals / Follow Up: Mitch Rudd Chi, MD [Primary Care Provider] - In 1 Week Disposition Disposition (needs filled in before D/C Order can be placed): Home, Self Care
--- NOTE | 2024-05-05 11:24 | PCM.DC.SUM ---
Providers Date of Admission: 05/04/24 Date of Discharge: 05/05/24 Primary Care Physician: Dr. Mitch Rudd MD Reason For Visit: ALLERGIC REACTION Diagnosis Discharge Diagnosis (1) Allergic reaction: Status: Acute Code(s): T78.40XA - Allergy, unspecified, initial encounter Plan 1. Mild angioedema secondary to QUANG inhibitor usage #2 essential hypertension #3 hyperlipidemia Medications at Discharge Home Medications amlodipine 10 mg tablet 10 mg PO DAILY #90 tabs 03/27/24 aspirin 81 mg capsule 81 mg PO DAILY #9 caps 03/27/24 hydrochlorothiazide 25 mg tablet 25 mg PO DAILY #90 tabs 03/27/24 citalopram 20 mg tablet 20 mg PO DAILY 05/04/24 metoprolol succinate 50 mg tablet,extended release 24 hr 50 mg PO DAILY #30 tabs 05/05/24 Hospital Course Operations None Procedures None Summary of Care Provided Minutes Spent on Discharge: 30 Hospital Course: This 53-year-old white male was seen in the emergency room at [facility] with a chief complaint of tongue swelling. Patient denied any shortness of breath or any difficulty swallowing. Patient was taking lisinopril for his blood pressure. Patient was given IM epinephrine, IV Benadryl, IV Pepcid, and IV Solu-Medrol due to concerns of likely angioedema. Patient was then monitored in the emergency room for approximately 2 hours, according to the ER documentation there was no improvement in the patient's tongue swelling. Patient was placed in observation status on MedSurg 3, the following morning he was reevaluated and felt to be stable for discharge home. On 05/05/2024, patient was seen and examined: On examination he appeared in good health and spirits. Vital signs as documented. Skin warm and dry and without overt rashes. Neck without JVD, neck was supple, trachea midline, thyroid was normal. Lungs clear bilaterally, normal air movement was noted. Heart exam notable for regular rhythm, normal sounds and absence of murmurs, rubs or gallops. Abdomen unremarkable and without evidence of organomegaly, masses, or abdominal aortic enlargement. Bowel sounds are present, abdomen is not distended. Extremities nonedematous, no cyanosis was noted, no clubbing was noted. Neuro: Cranial nerves II through XII are grossly intact, no focal motor deficits were noted, sensation to light touch and pinprick intact, motor exam 5/5 throughout. Psych: Patient is alert and oriented x3, he does not appear anxious or depressed, he does not appear agitated. Patient was discharged home in stable condition on 05/05/2024. Weight / BMI Weight Weight: 102.1 kg Body Mass Index (BMI) 35.2 D/C Instructions Discharge Diet: No restrictions Weight Bearing Status: Full weight bearing DC O2, CPAP, BIPAP Needs Home O2 Discharge instructions: No Meaningful Use Info Meaningful Use Meaningful Use Diagnoses (Choose all that apply): None applicable Ischemic Stroke Statin Dosing Therapy Reference: STATIN DOSE THERAPY REFERENCE: * Patients > 75 years receive moderate or high dose statin therapy. * Patients 75 years or YOUNGER should receive HIGH intensity statin dose unless contraindicated. You will be required to document reason for non-treatment if statin daily dose does not meet guidelines. HIGH DOSE STATIN THERAPY DAILY Atorvastatin > than or = to 40 mg Rosuvastatin > than or = to 20 mg Amlodipine + Atorvastatin > than or = to 2.5/40 mg Ezetimibe + Simvastatin 10/80 mg Simvastatin 80mg Discharge Plan Admission Admit Date/Time: 05/04/24 20:17 Primary Reason for Your Visit: allergic reaxtion to lisinopril Attending Provider: Seamus Moseley Primary Care Provider: Mitch Rudd Chi Consulting Providers: Anderson Mcdaniel Discharge Orders/Prescriptions Prescriptions: New metoprolol succinate 50 mg tablet extended release 24 hr 50 mg PO DAILY Qty: 30 0RF Continued amlodipine 10 mg Tablet 10 mg PO DAILY Qty: 90 0RF hydrochlorothiazide 25 mg Tablet 25 mg PO DAILY Qty: 90 0RF aspirin 81 mg capsule 81 mg PO DAILY Qty: 9 0RF citalopram 20 mg tablet 20 mg PO DAILY Discontinued lisinopril 20 mg tablet 20 mg PO DAILY Qty: 90 0RF Referrals / Follow Up: Mitch Rudd Chi, MD [Primary Care Provider] - In 1 Week Disposition Disposition (needs filled in before D/C Order can be placed): Home, Self Care Charges/Coding Visit Charges Inpatient E&M: 49085 Disch Hosp
--- NOTE | 2024-05-05 11:30 | CASEMGMT ---
RN CM into pt room, pt sitting up in bed. Pt indep at home, still works and does not use AD. Pt denies any homegoing needs. Pt to dc today.
[2024-05-05 11:51] VITALS: BP 160/109; PULSE 83; RESP 18; TEMP 36.6; O2SAT 99
[2024-05-05 11:56] VITALS: BP 160/109; PULSE 83
[2024-05-05] MEDS: Metoprolol(XL)Succ 50 MG Tablet PO (11:56)
[2024-05-05 12:55] VITALS: BP 156/91; PULSE 74; RESP 18; O2SAT 99
--- NOTE | 2024-05-05 15:26 | CHAPLAIN ---
Type of Pastoral Visit ___ Initial Visit ___ Follow-up Visit ___ On-call Visit ___ General Patient Visit ___ Spiritual Assessment ___ Family Conference ___ Bereavement ___ Rapid Response ___ Code Blue ___ Other (describe below) Pastoral Care Referral From ___ Patient ___ Family ___ Nurse ___ Physician ___ [place] Blank Handler ___ Proofsheet Corrector ___ Other (describe below) Sacrament/Intervention ___ Active listening ___ Anointing ___ Confucianism ___ Bereavement ___ Communion ___ Mary exploration ___ ___ Life review ___ Prayer ___ Reconciliation ___ Sacrament of Sick ___ Supportive presence ___ Wedding ___ Other (describe below) Pastoral Comments patient was discharged before a visit could be made by this information security architect
== END 2024-05-05 13:08 | disposition home or self-care (01) ==
LOC: ED 18:41 → MS3 20:27
PROVIDERS: Admitting Provider Family Medicine; Emergency Provider Surgery; PCP Family Medicine Geriatric Medicine; Visit Provider Internal Medicine
DX: T78.3XXA Angioneurotic edema, initial encounter (principal); E11.9 Type 2 diabetes mellitus without complications; Z86.19 Personal history of other infectious and parasitic diseases; T46.4X5A Adverse effect of angiotensin-converting-enzyme inhibitors, initial encounter; E78.5 Hyperlipidemia, unspecified; F17.290 Nicotine dependence, other tobacco product, uncomplicated; I10 Essential (primary) hypertension; Z79.82 Long term (current) use of aspirin; Z79.899 Other long term (current) drug therapy; Z86.2 Personal history of diseases of the blood and blood-forming organs and certain disorders involving the immune mechanism; K76.0 Fatty (change of) liver, not elsewhere classified; F17.210 Nicotine dependence, cigarettes, uncomplicated
CPT/HCPCS: 96365; 96368; 96375; 99221; 99285; A4216; G0378

== ENCOUNTER → 2024-07-04 | Outpatient (CLI) | payer MEDICAID, SELFPAY ==
[2024-07-04 13:18] LABS: Absolute Lymphocyte Count 2.32 X10^3/uL (0.83-4.51); Absolute Neutrophil Count 4.4 X10^3/uL (2.0-7.7); Basophil# 0.07 X10^3/uL; Basophil% 0.9 % (0-1); Eosinophil# 0.16 X10^3/uL; Eosinophils% 2.1 % (0-5); Hematocrit 44.6 % (40-54); Hemoglobin 14.8 g/dL (13.0-16.5); Lymphocyte # 2.32 X10^3/ul (0.83-4.51); Lymphocyte % 30.4 % (19-41); Mean Corp Hgb Conc 33.2 g/dL (32-36); Mean Corpuscular Hgb 28.3 pg (27.0-32.0); Mean Corpuscular Volume 85.3 fL (80-94); Monocyte# 0.63 X10^3/uL; Monocyte% 8.3 % (0-10); NRBC Flagged by Analyzer 0 % (0-5); Neutrophil # 4.42 X10^3/uL (2.7-7.7); Platelet Count 285 K/mm3 (150-450); RBC Distribution Width CV 12.3 % (11.6-14.6); RBC Distribution Width SD 38.2 fl (35.1-43.9); Red Blood Count 5.23 M/mm3 (4.6-6.2); White Blood Count 7.6 K/mm3 (4.4-11.0)
[2024-07-04 13:43] LABS: Hemoglobin A1c 5.9 % (3.8-5.6)
[2024-07-04 14:43] LABS: ALB/GLOB Ratio 0.9 RATIO (0.9-2.4); AST(SGOT) 28 U/L (15-37); Alanine Aminotransfer ALT/SGPT 39 U/L (16-61); Albumin, Serum 3.4 g/dL (3.2-5.0); Alkaline Phosphatase 88 U/L (45-117); Anion Gap 6 (5-15); BUN 15 mg/dL (7-18); BUN/Creat Ratio 16.8 RATIO (10-20); Calcium,Total 8.9 mg/dL (8.5-10.1); Chloride 106 mmol/L (98-107); Cholesterol 118 mg/dL (200); Creatinine, Serum 0.89 mg/dL (0.70-1.30); EST Glomerular Filtration Rate 95 mL/min (>60); Est Glom Filt Rate - Afr Amer 115 mL/min (>60); Globulin 3.8 g/dL (2.2-4.2); Glucose 151 mg/dL (74-106); High Density Lipoprotein 35 mg/dL; Potassium 3.7 mmol/L (3.5-5.1); Protein, Total 7.2 g/dL (6.4-8.2); Sodium Level 139 mmol/L (136-145); Triglycerides 168 mg/dL; Very Low Density Lipoprotein 34 mg/dL (5-40)
== END | disposition home or self-care (01) ==
PROVIDERS: PCP Family Medicine Geriatric Medicine; Referring Provider Family Medicine Geriatric Medicine; Visit Provider Family Medicine Geriatric Medicine
DX: I10 Essential (primary) hypertension (principal); E11.65 Type 2 diabetes mellitus with hyperglycemia; E78.5 Hyperlipidemia, unspecified
CPT/HCPCS: 36415; 80053; 80061; 83036; 84443; 85025

== ENCOUNTER → 2024-10-13 | Outpatient (CLI) | payer MEDICAID, SELFPAY ==
[2024-10-13 13:07] LABS: Hemoglobin A1c 6.5 % (<=5.6)
[2024-10-13 13:17] LABS: ALB/GLOB Ratio 1.4 RATIO (0.9-2.4); AST(SGOT) 23 U/L (<=37); Alanine Aminotransfer ALT/SGPT 31 U/L (<=46); Albumin, Serum 4.5 g/dL (3.5-5.0); Alkaline Phosphatase 82 U/L (40-129); Anion Gap 12 (5-15); BUN 13 mg/dL (4-19); BUN/Creat Ratio 15.3 RATIO (10-20); Calcium,Total 9.3 mg/dL (7.6-11.0); Carbon Dioxide 23.1 mmol/L (21.0-32.0); Chloride 101 mmol/L (98-108); Cholesterol 139 mg/dL (<=200); Creatinine, Serum 0.83 mg/dL (0.70-1.20); EST Glomerular Filtration Rate 105 (>60); Globulin 3.1 g/dL (2.2-4.2); Glucose 123 mg/dL (70-99); High Density Lipoprotein 37 mg/dL; Low Density Lipoprotein Calc. 75 mg/dL; Protein, Total 7.7 g/dL (5.9-8.4); Sodium Level 137 mmol/L (133-145); Total Bilirubin 0.32 mg/dL (0.00-1.30); Triglycerides 137 mg/dL; Very Low Density Lipoprotein 27 mg/dL (5-40); cholesterol:hdl ratio screen 3.81
[2024-10-13 14:00] LABS: Absolute Lymphocyte Count 1.85 X10^3/uL (0.83-4.51); Absolute Neutrophil Count 3.9 X10^3/uL (2.0-7.7); Basophil# 0.08 X10^3/uL; Basophil% 1.2 % (0-1); Eosinophil# 0.25 X10^3/uL; Eosinophils% 3.8 % (0-5); Hematocrit 49.2 % (40-54); Hemoglobin 16.7 g/dL (13.0-16.5); Lymphocyte # 1.85 X10^3/ul (0.83-4.51); Lymphocyte % 28.4 % (19-41); Mean Corp Hgb Conc 33.9 g/dL (32-36); Mean Corpuscular Hgb 28.3 pg (27.0-32.0); Mean Corpuscular Volume 83.4 fL (80-94); Mean Platelet Vol. 10.7 fl (6.2-12.0); Monocyte# 0.46 X10^3/uL; Monocyte% 7.1 % (0-10); NRBC Flagged by Analyzer 0 % (0-5); Neutrophil # 3.86 X10^3/uL (2.7-7.7); Neutrophil % 59.2 % (47-70); Platelet Count 275 K/mm3 (150-450); RBC Distribution Width CV 11.8 % (11.6-14.6); RBC Distribution Width SD 35.5 fl (35.1-43.9); White Blood Count 6.5 K/mm3 (4.4-11.0)
== END | disposition home or self-care (01) ==
LOC: LAB 10:02
PROVIDERS: PCP Family Medicine Geriatric Medicine; Referring Provider Family Medicine Geriatric Medicine; Visit Provider Family Medicine Geriatric Medicine
DX: E11.65 Type 2 diabetes mellitus with hyperglycemia (principal); I10 Essential (primary) hypertension; E78.5 Hyperlipidemia, unspecified
CPT/HCPCS: 36415; 80053; 80061; 83036; 84443; 85025

== ENCOUNTER → 2024-10-31 | Outpatient (CLI) | payer MEDICAID, SELFPAY ==
[2024-10-31 13:31] LABS: ALB/GLOB Ratio 1.5 RATIO (0.9-2.4); AST(SGOT) 26 U/L (<=37); Alanine Aminotransfer ALT/SGPT 29 U/L (<=46); Albumin, Serum 4.6 g/dL (3.5-5.0); Alkaline Phosphatase 95 U/L (40-129); Anion Gap 12 (5-15); BUN 14 mg/dL (4-19); Calcium,Total 9.5 mg/dL (7.6-11.0); Carbon Dioxide 28.7 mmol/L (21.0-32.0); Chloride 97 mmol/L (98-108); Creatinine, Serum 0.92 mg/dL (0.70-1.20); EST Glomerular Filtration Rate 99 (>60); Globulin 3.1 g/dL (2.2-4.2); Glucose 137 mg/dL (70-99); Potassium 3.2 mmol/L (3.3-5.1); Protein, Total 7.7 g/dL (5.9-8.4); Sodium Level 138 mmol/L (133-145); Total Bilirubin 0.34 mg/dL (0.00-1.30)
--- OUTSIDE RECORDS SUMMARY | 2024-10-31 18:17 | XMS RPT_ITS | CCD ---
Author Organization [facility] CliniSynd Care Team Providers Care Electronic Coils Supervisor Name Role Phone Tobin RED, Dr. Mitch Maddox Primary Care Provider Kamryn ARDON, Dr. Lyle Emergency Provider [phone] Shanon RED, Dr. Pang Admit Provider Unavailable Shanon RED, Dr. Pang Attending Provider Unavaila db Claudio MD, Dr. Pang Other Provider Unavailable Domitila RED, Dr. Garcia Attending Provider Amanda RED, Dr. Carlos Attending Provider Johnnie RED, Dr. Bob Attending Provider Johnnie RED, Dr. Bob Emergency Provider [phone] Tobin RED, Dr. Mitch Maddox Attending Provider Farzana ARDON, Dr. Mckeon Emergency Provider Jonas RED, Dr. Anderson Garces Admit Provider Jonas RED, Dr. Anderson Garces Other Provider Dr. Seamus Moseley DO Attending Provider Jonas RED, Dr. Anderson Garces Attending Provider Dr. Seamus Moseley DO Other Provider Tobin RED, Dr. Mitch Maddox Referring Provider Tobin RED, Dr. Mitch Maddox Primary Care Provider Tobin RED, Dr. Mitch Maddox Attending Provider Tobin RED, Dr. Mitch Maddox Referring Provider Mitch Rudd Chi Primary Care Unavailable Mitch Rudd Chi Attending Unavailable Tobin Mitch Chi Primary Care Unavailable Bird Claudio Attending Unavailable Bird Claudio Admitting Unavailable Tobin, Mitch Chi Primary Care Unavailable Anderson Mcdaniel Consulting Unavailable Seamus Moseley Attending Unavailable Anderson Mcdaniel Admitting Unavailable Tobin, Mitch Chi Primary Care Unavailable Tobin, Mitch Chi Referring Unavailable Tobin, Mitch Chi Attending Unavailable Tobin, Mitch Chi Primary Care Unavailable Tobin, Mitch Chi Referring Unavailable Tobin, Mitch Chi Attending Unavailable Tobin, Mitch Chi Primary Care Unavailable Jose Ramesh Attending Unavailable Tobin, Mitch Chi Primary Care Unavailable Terrance Patel Attending UnavailBird Yang Admitting Unavailable Bird Claudio Consulting Unavailable Bird Claudio Attending Unavailable Anderson Mcdaniel Admitting Unavailable Tobin, Mitch Chi Primary Care Unavailable Seamus Moseley Attending Unavailable Anderson Mcdaniel Consulting Unavailable Seamus Moseley Consulting Unavailable Anderson Mcdaniel Attending Unavailable Tobin, Mitch Chi Primary Care Unavailable Paulino Blair Attending Unavailable Tobin, Mitch Chi Primary Care Unavailable Valorie Reinoso Attending Unavailable Allergies Allergy Classification Reported Allergen(s) Allergy Type Date of Onset Reaction(s) Facility (2 sources) hydrALAZINE Drug Allergy 05-04-2024 Vomiting [facility] Comment on above: stated his heart fel t like it was racing (2 sources) Lisinopril Drug Allergy 05-04-2024 Angioedema [facility] (1 source) hydrALAZINE Drug Allergy 05-04-2024 [facility] Repository (1 source) Lisinopril Drug Allergy 05-04-2024 [facility] Repository Medications Current Medications Medication Drug Class(es) Dates Sig (Normalized) Sig (Original) amLODIPine 10 mg oral tablet (2 sources) Dihydropyridine Calcium Channel Carlos Start: 03-27-2024 take 1 tablet by mouth once daily Amlodipine 10 mg Tablet Active 10 mg PO DAILY March 27, 2024 1:00am aspirin 81 mg oral tablet (4 sources) Platelet Aggregation Inhibitor, Nonsteroidal Anti-inflammatory Drug Start: 03-26-2024 End: 03-27-2024 take 1 capsule by mouth once daily Aspirin 81 mg capsule Active 81 mg PO DAILY March 27, 2024 12:55pm citalopram 20 mg oral tablet (6 sources) Serotonin Reuptake Inhibitor Start: 05-04-2024 take 1 tablet by mouth once daily Citalopram 20 mg tablet Active 20 mg PO DAILY May 04, 2024 1:00am Start: 07-19-2022 End: 03-15-2024 take 1 tablet by mouth once daily Citalopram 20 mg tablet Discontinued 20 mg PO DAILY July 19, 2022 1:00am March 15, 2024 7:33pm hydroCHLOROthiazide 25 mg oral tablet (2 sources) Thiazide Diuretic Start: 03-27-2024 take 1 tablet by mouth once daily Hydrochlorothiazide 25 mg Tablet Active 25 mg PO DAILY March 27, 2024 1:00am 24 hr metoprolol succinate 50 mg extended release oral tablet (2 sources) beta-Adrenerg ic Carlos Start: 05-05-2024 take 1 tablet by mouth once daily Metoprolol Succinate 50 mg tablet extended release 24 hr Active 50 mg PO DAILY May 05, 2024 1:00am Completed/Discontinued Medications Medication Drug Class(es) Dates Sig (Normalized) Sig (Original) hydroCHLOROthiazide 12.5 mg / valsartan 320 mg oral tablet (4 sources) Thiazide Diuretic, Angiotensin 2 Receptor Carlos Start: 07-19-2022 End: 03-15-2024 Valsartan-Hydroch lorothiazide 320-12.5 mg tablet Discontinued 1 {tbl} PO DAILY July 19, 2022 1:00am March 15, 2024 7:33pm Start: 07-19-2022 take 1 tablet by josue once daily Valsartan-Hydrochlorothiazide Active 1 T ABLET PO DAILY July 19, 2022 12:00am lisinopril 20 mg oral tablet (11 sources) Angiotensin Converting Enzyme Inhibitor Start: 02-20-2020 End: 05-05-2024 take 1 tablet by mouth once daily Lisinopril 20 mg tablet Discontinued 20 mg PO DAILY March 27, 2024 12:55pm May 05, 2024 12:21pm pravastatin sodium 40 mg oral tablet (4 sources) HMG-CoA Reductase Inhibitor Start: 07-19-2022 End: 03-15-2024 take 1 tablet by mouth once daily Pravastatin 40 mg tablet Discontinued 40 mg PO DAILY July 19, 2022 1:00am March 15, 2024 7:33pm Problems Active Problems Problem Classification Problem Date Documented Da te Episodic/Chronic Conditions associated with dizziness or vertigo (7 sources) Dizziness; Translations: [Dizziness and giddiness] 02-25-2021 Episodic Diabetes mellitus with complications (1 source) Type 2 diabetes mellitus with hyperglycemia; Translations: [Type 2 diabetes mellitus with hyperglycemia] Onset: 10-17-2024 Chronic Disorders of teeth and jaw (7 sources) Dental caries; Translations: [Dental caries, unspecified] 02-21-2020 Episodic Essential hypertension (19 sources) Hypertensive disorder; Translations: [Essential (primary) hypertension] Onset: 04-28-2024 02-17-2021 Chronic Other nutritional; endocrine; and metabolic disorders (2 sources) H/O: raised blood lipids; Translations: [Personal history of other endocrine, nutritional and metabolic disease] 03-26-2024 Episodic Other nutritional; endocrine; and metabolic disorders (2 sources) H/O: diabetes mellitus; Translations: [Personal history of other endocrine, nutritional and metabolic disease] 04-07-2024 Episodic Other screening for suspected conditions (not mental disorders or infectious disease) (2 sources) Raised cardiac enzyme or marker; Translations: [Other specified abnormal findings of blood chemistry] 03-26-2024 Episodic Past or Other Problems Problem Classification Problem Date Documented Da te Episodic/Chronic Allergic reactions (5 sources) Allergic reaction; Translations: [Allergy, unspecified, initial encounter] Onset: 05-07-2024 05-13-2024 Episodic Nonspecific chest pain (5 sources) Chest pain; Translations: [Chest pain, unspecified] Onset: 04-28-2024 04-04-2024 Episodic Results Test Name Value Interpretation Reference Range Facility Absolute lymphocyte countOrd ered By: Mitch Rudd on 10-13-2024 Lymphocytes Auto (Unsp spec) [#/Vol] 1.85 10*3/uL 0.83-4.51 [facility] Absolute neutrophil countOrd ered By: Mitch Rudd on 10-13-2024 Neutrophils (Bld) [#/Vol] 3.9 10*3/uL 2.0-7.7 [facility] Anion gap in Serum or Plasma Ordered By: Mitch Rudd on 10-13-2024 Anion gap [Moles/Vol] 12 mmol/L - [facility] Automated blood erythrocyte countOrdered By: Mitch Rudd on 10-13-2024 RBC (Bld) [#/Vol] 5.90 10*6/uL Normal 4.6-6.2 [facility] Comment on above: Performed By: #### L 100.0100, L501.5200, L500.2500, L501.2300 #### [facility] [address] [place], [place], [address] Automated blood hematocrit ( percentage)Ordered By: Mitch Rudd on 10-13-2024 Hematocrit (Bld) [Volume fraction] 49.2 % Normal 40-54 [facility] Comment on above: Performed By: #### L 100.0100, L501.5200, L500.2500, L501.2300 #### [facility] [address] [place], [place], [address] Automated lymphocyte count a s percentage of total leukocytesOrdered By: Mitch Rudd on 10-13-2024 Lymphocytes/100 WBC Auto (Unsp spec) 28.4 % 19- [facility] BUN/creatinine ratioOrdered By: Mitch Rudd on 10-13-2024 Urea nitrogen/Creatinine [Mass ratio] 15.3 mg/mg 10-20 [facility] Basophil percentageOrdered B y: Mitch Tobin on 10-13-2024 Basophils/100 WBC (Bld) 1.2 % High 0-1 [facility] Comment on above: Performed By: #### L 100.0100, L501.5200, L500.2500, L501.2300 #### [facility] [address] [place], [place], [address] Bilirubin, totalOrdered By: Mitch Tobin on 10-13-2024 Bilirubin [Mass/Vol] 0.32 mg/dL 0.00-1.30 [facility] CBC W/Diff, Automatedon Absolute Lymph 1.85 X10 3/uL Normal 0.83-4.51 [facility] Comment on above: Performed By: #### L 100.0100, L501.5200, L500.2500, L501.2300 #### [facility] [address] [place], [address] Absolute Neut 3.9 X10 3/uL Normal 2.0-7.7 [facility] Comment on above: Performed By: #### L 100.0100, L501.5200, L500.2500, L501.2300 #### [facility] [address] [place], [address] IG% 0.300 Normal 0.0-0.9 [facility] Comment on above: Result Comment: IG% - Immature Granulocytes (promyelocytes, myelocytes and metamyelocytes) > 1% indicates that a LEFT SHIFT is Present. Performed By: #### L 100.0100, L501.5200, L500.2500, L501.2300 #### [facility] [address] [place], [address] Lymphocytes/100 WBC (Bld) 28.4 % Normal 19-41 [facility] Comment on above: Performed By: #### L 100.0100, L501.5200, L500.2500, L501.2300 #### [facility] [address] [place], [address] Nucleated RBC (Bld) [#/Vol] 0 10*3/uL Normal 0-5 [facility] Comment on above: Performed By: #### L 100.0100, L501.5200, L500.2500, L501.2300 #### [facility] [address] [place], [address] RDW SD 35.5 fl Normal 35.1-43.9 [facility] Comment on above: Performed By: #### L 100.0100, L501.5200, L500.2500, L501.2300 #### [facility] [address] [place], [address] Calculated very low density lipoprotein (VLDL) cholesterol measurementOrdered By: Mitch Rudd on 10-13-2024 Calculated very low density lipoprotein (VLDL) cholesterol measurement 27 mg/dL 5-40 [facility] Carbon dioxide, total [Moles /volume] in Central venous bloodOrdered By: Mitch Rudd on 10-13-2024 CO2 [Moles/Vol] 23.1 mmol/L 21.0-32.0 [facility] Chloride assayOrdered By: Juice Rudd on 10-13-2024 Chloride [Moles/Vol] 101 mmol/L 98-108 [facility] Comprehensive Metabolic Prof ilon 10-13-2024 Albumin [Mass/Vol] 4.5 g/dL Normal 3.5-5.0 [facility] Comment on above: Performed By: #### L 100.0100, L501.5200, L500.2500, L501.2300 #### [facility] [address] [place], [address] Albumin/Globulin [Mass ratio] 1.4 {ratio} Normal 0.9-2.4 [facility] Comment on above: Performed By: #### L 100.0100, L501.5200, L500.2500, L501.2300 #### [facility] [address] [place], [address] ALK PHOS 82 U/L Normal 40-129 [facility] Comment on above: Performed By: #### L 100.0100, L501.5200, L500.2500, L501.2300 #### [facility] [address] [place], [address] ALT [Catalytic activity/Vol] 31 U/L Normal <=46 [facility] Comment on above: Performed By: #### L 100.0100, L501.5200, L500.2500, L501.2300 #### [facility] [address] [place], [address] AST [Catalytic activity/Vol] 23 U/L Normal <=37 [facility] Comment on above: Performed By: #### L 100.0100, L501.5200, L500.2500, L501.2300 #### [facility] [address] [place], [address] Bilirubin [Mass/Vol] 0.32 mg/dL Normal 0.00-1.30 [facility] Comment on above: Performed By: #### L 100.0100, L501.5200, L500.2500, L501.2300 #### [facility] [address] [place], [address] BUN/CRE 15.3 RATIO Normal 10-20 [facility] Comment on above: Performed By: #### L 100.0100, L501.5200, L500.2500, L501.2300 #### [facility] [address] [place], [address] Calcium [Mass/Vol] 9.3 mg/dL Normal 7.6-11.0 [facility] Comment on above: Performed By: #### L 100.0100, L501.5200, L500.2500, L501.2300 #### [facility] [address] [place], [address] Chloride [Moles/Vol] 101 mmol/L Normal 98-108 [facility] Comment on above: Performed By: #### L 100.0100, L501.5200, L500.2500, L501.2300 #### [facility] [address] [place], [address] CO2 [Moles/Vol] 23.1 mmol/L Normal 21.0-32.0 [facility] Comment on above: Performed By: #### L 100.0100, L501.5200, L500.2500, L501.2300 #### [facility] [address] [place], [address] Creatinine [Mass/Vol] 0.83 mg/dL Normal 0.70-1.20 [facility] Comment on above: Performed By: #### L 100.0100, L501.5200, L500.2500, L501.2300 #### [facility] [address] [place], [address] GAP 12 Normal 5-15 [facility] Comment on above: Performed By: #### L 100.0100, L501.5200, L500.2500, L501.2300 #### [facility] [address] [place], [address] GFR/1.73 sq M.predicted among non-blacks MDRD (S/P/Bld) [Vol rate/Area] 105 mL/min/{1.73_m2} Normal >60 [facility] Comment on above: Result Comment: mL/m in/1.73m2 CKD-EPI Creatinine Equation (2020) Performed By: #### L 100.0100, L501.5200, L500.2500, L501.2300 #### [facility] [address] [place], [address] Globulin (S) [Mass/Vol] 3.1 g/dL Normal 2.2-4.2 [facility] Comment on above: Performed By: #### L 100.0100, L501.5200, L500.2500, L501.2300 #### [facility] [address] [place], [address] Glucose [Mass/Vol] 123 mg/dL High 70-99 [facility] Comment on above: Performed By: #### L 100.0100, L501.5200, L500.2500, L501.2300 #### [facility] [address] [place], [address] Potassium [Moles/Vol] 5.0 mmol/L Normal 3.3-5.1 [facility] Comment on above: Performed By: #### L 100.0100, L501.5200, L500.2500, L501.2300 #### [facility] [address] [place], [address] Sodium [Moles/Vol] 137 mmol/L Normal 133-145 [facility] Comment on above: Performed By: #### L 100.0100, L501.5200, L500.2500, L501.2300 #### [facility] [address] [place], [address] T PROT 7.7 g/dL Normal 5.9-8.4 [facility] Comment on above: Performed By: #### L 100.0100, L501.5200, L500.2500, L501.2300 #### [facility] [address] [place], [address] Urea nitrogen [Mass/Vol] 13 mg/dL Normal 4-19 [facility] Comment on above: Performed By: #### L 100.0100, L501.5200, L500.2500, L501.2300 #### [facility] [address] [place], [address] Eosinophil percentageOrdered By: Mitch Rudd on 10-13-2024 Eosinophils/100 WBC (Bld) 3.8 % Normal 0-5 [facility] Comment on above: Performed By: #### L 100.0100, L501.5200, L500.2500, L501.2300 #### [facility] [address] [place], [address] Erythrocyte distribution wid th ratioOrdered By: Mitch Rudd on 10-13-2024 Erythrocyte distribution width (RBC) [Ratio] 11.8 % Normal 11.6-14.6 [facility] Comment on above: Performed By: #### L 100.0100, L501.5200, L500.2500, L501.2300 #### [facility] [address] [place], [address] Erythrocyte distribution wid th standard deviationOrdered By: Mitch Rudd on 10-13-2024 Erythrocyte distribution width (RBC) [Ratio] 35.5 fl 35.1-43.9 [facility] Glomerular filtration rate ( GFR) estimation/1.73 sq m using serum, plasma, or whole bOrdered By: Mitch Rudd on 10-13-2024 GFR/1.73 sq M.predicted among non-blacks MDRD (S/P/Bld) [Vol rate/Area] 105 mL/min/{1.73_m2} >60 [facility] Comment on above: mL/min/1.73m2 CKD-EP I Creatinine Equation (2020) Hemoglobin A1con 10-13-2024 HbA1c (Bld) [Mass fraction] 6.5 % High <=5.6 [facility] Comment on above: Result Comment: Norm al < 5.7 % Prediabetic 5.7 - 6.4 % Diabetic >or= 6.5 % Please note range changes. Performed By: #### L 100.0100, L501.5200, L500.2500, L501.2300 #### [facility] [address] [place], [place], [id number] Hemoglobin A1c percentageOrd ered By: Mitch Rudd on 10-13-2024 HbA1c (Bld) [Mass fraction] 6.5 % High <5.7 [facility] Comment on above: Normal < 5.7 % Predi abetic 5.7 - 6.4 % Diabetic >or= 6.5 % Please note range changes. Hemoglobin measurementOrdere d By: Mitch Rudd on 10-13-2024 Hemoglobin (Bld) [Mass/Vol] 16.7 g/dL High 13.0-16.5 [facility] Comment on above: Performed By: #### L 100.0100, L501.5200, L500.2500, L501.2300 #### [facility] [address] [place], [address] Immature granulocytes/100 WB C Auto (Bld)Ordered By: Mitch Rudd on 10-13-2024 Immature granulocytes/100 WBC (Bld) 0.300 % 0.0-0.9 [facility] Comment on above: IG% - Immature Granu locytes (promyelocytes, myelocytes and metamyelocytes) > 1% indicates that a LEFT SHIFT is Present. LDL calc ser/plasOrdered By: Mitch Rudd on 10-13-2024 Cholesterol in LDL [Mass/Vol] 75 mg/dL [facility] Comment on above: Ffsbqwlhkn=102-406 m g/dL & Higher Mgvr=028 mg/dL or greater Laboratory - Chemistry and C hemistry - challengeOrdered By: Mitch Rudd on 10-13-2024 AST [Catalytic activity/Vol] 23 U/L <38 [facility] Lipid Profileon 10-13-2024 CHOL:HDL 3.81 Normal [facility] Comment on above: Performed By: #### L 100.0100, L501.5200, L500.2500, L501.2300 #### [facility] [address] [place], [place], [id number] ([phone]) Cholesterol [Mass/Vol] 139 mg/dL Normal <=200 [facility] Comment on above: Result Comment: Chol esterol level, Desirable <200 mg/dL Borderline high cholesterol 200-239 mg/dL High cholesterol >=240 mg/dL Recommendations of the NCEP Adult Treatment Panel for the following risk-cutoff thresholds for the [place] population. Performed By: #### L 100.0100, L501.5200, L500.2500, L501.2300 #### [facility] [address] [place], [address] Cholesterol in HDL [Mass/Vol] 37 mg/dL Low [facility] Comment on above: Result Comment: [place] onal Cholesterol Education Program (NCEP) guidelines: <40 mg/dL: Low HDL-cholesterol (major risk factor for CHD) >= 60 mg/dL: High HDL-cholesterol (negative risk factor for CHD) HDL-cholesterol is affected by a number of factors, e.g. smoking, exercise, hormones, sex and age. Performed By: #### L 100.0100, L501.5200, L500.2500, L501.2300 #### [facility] [address] [place], [address] Cholesterol in LDL [Mass/Vol] 75 mg/dL Normal [facility] Comment on above: Result Comment: Bord ambasp=621-838 mg/dL Higher Xutg=161 mg/dL or greater Performed By: #### L 100.0100, L501.5200, L500.2500, L501.2300 #### [facility] [address] [place], [address] Cholesterol in VLDL [Mass/Vol] 27 mg/dL Normal 5-40 [facility] Comment on above: Performed By: #### L 100.0100, L501.5200, L500.2500, L501.2300 #### [facility] [address] [place], [address] Triglyceride [Mass/Vol] 137 mg/dL Normal [facility] Comment on above: Result Comment: The drugs N-Acetylcysteine and Metamizole may falsely depress this assay. Normal range: <150 mg/dL Borderline High: 150-199 mg/dL High: 200-499 mg/dL Very High: >500 mg/dL Performed By: #### L 100.0100, L501.5200, L500.2500, L501.2300 #### [facility] [address] [place], [address] MCV (mean corpuscular volume ) determinationOrdered By: Mitch Rudd on 10-13-2024 MCV (RBC) [Entitic vol] 83.4 fL Normal 80-94 [facility] Comment on above: Performed By: #### L 100.0100, L501.5200, L500.2500, L501.2300 #### [facility] [address] [place], [address] Mean corpuscular hemoglobin (MCH) determinationOrdered By: Mitch Rudd on 10-13-2024 MCH (RBC) [Entitic mass] 28.3 pg Normal 27.0-32.0 [facility] Comment on above: Performed By: #### L 100.0100, L501.5200, L500.2500, L501.2300 #### [facility] [address] [place], [address] Mean corpuscular hemoglobin concentration (MCHC) determinationOrdered By: Mitch Rudd on 10-13-2024 MCHC (RBC) [Mass/Vol] 33.9 g/dL Normal 32-36 [facility] Comment on above: Performed By: #### L 100.0100, L501.5200, L500.2500, L501.2300 #### [facility] [address] [place], [address] Mean platelet volume determi nationOrdered By: Mitch Rudd on 10-13-2024 Platelet mean volume (Bld) [Entitic vol] 10.7 fL Normal 6.2-12.0 [facility] Comment on above: Performed By: #### L 100.0100, L501.5200, L500.2500, L501.2300 #### [facility] [address] [place], [place], [phone] Monocyte percentageOrdered B y: Mitch Rudd on 10-13-2024 Monocytes/100 WBC (Bld) 7.1 % Normal 0-10 [facility] Comment on above: Performed By: #### L 100.0100, L501.5200, L500.2500, L501.2300 #### [facility] [address] [place], [address] Neutrophil percentageOrdered By: Mitch Rudd on 10-13-2024 Neutrophils/100 WBC (Bld) 59.2 % Normal 47-70 [facility] Comment on above: Performed By: #### L 100.0100, L501.5200, L500.2500, L501.2300 #### [facility] [address] [place], [place], [phone] Nucleated red blood cell per centageOrdered By: Mitch Rudd on 10-13-2024 Nucleated RBC/100 WBC (Bld) [Ratio] 0 % 0-5 [facility] Platelet countOrdered By: Juice Rudd on 10-13-2024 Platelets (Bld) [#/Vol] 275 10*3/uL Normal 150-450 [facility] Comment on above: Performed By: #### L 100.0100, L501.5200, L500.2500, L501.2300 #### [facility] [address] [place], [address] Potassium measurement (mass/ volume)Ordered By: Mitch Rudd on 10-13-2024 Potassium (Unsp spec) [Mass/Vol] 5.0 mmol/L 3.3-5.1 [facility] Screening total cholesterol/ high density lipoprotein (HDL) cholesterol ratioOrdered By: Mitch Rudd on 10-13-2024 Cholesterol.total/Dixie sterol in HDL [Mass ratio] 3.81 {ratio} [facility] Serum creatinine measurement (mass/volume)Ordered By: Mitch Rudd on 10-13-2024 Creatinine [Mass/Vol] 0.83 mg/dL 0.70-1.20 [facility] Serum globulin measurementOr dered By: Mitch Rudd on 10-13-2024 Globulin (S) [Mass/Vol] 3.1 g/dL 2.2-4.2 [facility] Serum glucose measurement (m ass/volume)Ordered By: Mitch Rudd on 10-13-2024 Glucose [Mass/Vol] 123 mg/dL High 70-99 [facility] Serum or plasma alanine ansari otransferase (ALT) measurementOrdered By: Mitch Rudd on 10-13-2024 ALT [Catalytic activity/Vol] 31 U/L <47 [facility] Serum or plasma albumin claudia urement (mass/volume)Ordered By: Mitch Rudd on 10-13-2024 Albumin [Mass/Vol] 4.5 g/dL 3.5-5.0 [facility] Serum or plasma albumin/glob ulin mass ratioOrdered By: Mitch Rudd 10-13-2024 Albumin/Globulin [Mass ratio] 1.4 {ratio} 0.9-2.4 [facility] Serum or plasma alkaline donnell sphatase measurementOrdered By: Mitch Rudd on 10-13-2024 ALP [Catalytic activity/Vol] 82 U/L 40-129 [facility] Serum or plasma calcium claudia urement (mass/volume)Ordered By: Mitch Rudd on 10-13-2024 Calcium [Mass/Vol] 9.3 mg/dL 7.6-11.0 [facility] Serum or plasma cholesterol in HDL measurement (mass/volume)Ordered By: Mitch Rudd on 10-13-2024 Cholesterol in HDL [Mass/Vol] 37 mg/dL Low >40 [facility] [facility] Comment on above: National Cholesterol Education Program (NCEP) guidelines:<40 mg/dL: Low HDL-cholesterol (major risk factor for CHD)>= 60 mg/dL: High HDL-cholesterol (negative risk factor for CHD)HDL-cholesterol is affected by a number of factors, e.g. smoking, exercise, hormones, sex and age. Serum or plasma cholesterol measurement (mass/volume)Ordered By: Mitch Rudd on 10-13-2024 Cholesterol [Mass/Vol] 139 mg/dL <201 [facility] Comment on above: Cholesterol level, D esirable <200 mg/dLBorderline high cholesterol 200-239 mg/dLHigh cholesterol >=240 mg/dLRecommendations of the NCEP Adult Treatment Panel for the following risk-cutoff thresholds for the [place] population. Serum or plasma urea nitroge n measurement (mass/volume)Ordered By: Mitch Rudd on 10-13-2024 Urea nitrogen [Mass/Vol] 13 mg/dL 4-19 [facility] Sodium levelOrdered By: Mitch Rudd on 10-13-2024 Sodium [Moles/Vol] 137 mmol/L 133-145 [facility] TSH DL <= 0.005 mIU/L QnOrde red By: Mitch Rudd on 10-13-2024 TSH Qn 1.880 uIU/mL 0.300-4.200 [facility] Thyroid Stim Hormone (TSH)on 10-13-2024 TSH 1.880 uIU/mL Normal 0.300-4.200 [facility] Comment on above: Performed By: #### L 100.0100, L501.5200, L500.2500, L501.2300 #### [facility] [address] [place], [place], [id number] Total proteinOrdered By: Mitch Tobin on 10-13-2024 Protein [Mass/Vol] 7.7 g/dL 5.9-8.4 [facility] Triglycerides measurementOrd ered By: Mitch Tobin on 10-13-2024 Triglyceride [Mass/Vol] 137 mg/dL <199 [facility] Comment on above: The drugs N-Acetylcy steine and Metamizole may falsely depress this assay. Normal range: <150 mg/dLBorderline High: 150-199 mg/dLHigh: 200-499 mg/dLVery High: >500 mg/dL White blood cell (WBC) count Ordered By: Mitch Tobin on 10-13-2024 WBC (Bld) [#/Vol] 6.5 10*3/uL Normal 4.4-11.0 [facility] Comment on above: Performed By: #### L 100.0100, L501.5200, L500.2500, L501.2300 #### [facility] [address] [facility] [place], [place], [id number] Absolute lymphocyte countOrd ered By: Mitch Tobin on 07-04-2024 Lymphocytes Auto (Unsp spec) [#/Vol] 2.32 10*3/uL 0.83-4.51 [facility] Absolute neutrophil countOrd ered By: Mitch Tobin on 07-04-2024 Neutrophils (Bld) [#/Vol] 4.4 10*3/uL 2.0-7.7 [facility] Albumin to globulin ratioOrd ered By: Mitch Rudd on 07-04-2024 Albumin/Globulin [Mass ratio] 0.9 {ratio} 0.9-2.4 [facility] Automated lymphocyte count a s percentage of total leukocytesOrdered By: Mitch Tobin on 07-04-2024 Lymphocytes/100 WBC Auto (Unsp spec) 30.4 % 19-41 [facility] Basophil percentageOrdered B y: Mitch Rudd on 07-04-2024 Basophils/100 WBC (Bld) 0.9 % 0-1 [facility] Bilirubin, totalOrdered By: Mitch Rudd on 07-04-2024 Bilirubin [Mass/Vol] 0.50 mg/dL 0.20-1.00 [facility] Comment on above: For patients on eltr ombopag therapy, use of Dimension [place] TBIL is not recommended. Blood urea nitrogen (BUN)/cr eatinine ratioOrdered By: Mitch Rudd on 07-04-2024 Urea nitrogen/Creatinine [Mass ratio] 16.8 mg/mg 10- [facility] CBC W/Diff, Automatedon 06-15 Absolute Lymph 2.32 X10 3/uL Normal 0.83-4.51 [facility] Comment on above: Performed By: #### L 501.9520, L500.4050, L500.4100, L100.0100, L501.9985 #### [facility] [address] [place], [address] Absolute Neut 4.4 X10 3/uL Normal 2.0-7.7 [facility] Comment on above: Performed By: #### L 501.9520, L500.4050, L500.4100, L100.0100, L501.9985 #### [facility] [address] [place], [address] Basophils/100 WBC (Bld) 0.9 % Normal 0-1 [facility] Comment on above: Performed By: #### L 501.9520, L500.4050, L500.4100, L100.0100, L501.9985 #### [facility] [address] [place], [address] Eosinophils/100 WBC (Bld) 2.1 % Normal 0-5 [facility] Comment on above: Performed By: #### L 501.9520, L500.4050, L500.4100, L100.0100, L501.9985 #### [facility] [address] [place], [address] Erythrocyte distribution width (RBC) [Ratio] 12.3 % Normal 11.6-14.6 [facility] Comment on above: Performed By: #### L 501.9520, L500.4050, L500.4100, L100.0100, L501.9985 #### [facility] [address] [place], [address] Hematocrit (Bld) [Volume fraction] 44.6 % Normal 40-54 [facility] Comment on above: Performed By: #### L 501.9520, L500.4050, L500.4100, L100.0100, L501.9985 #### [facility] [address] [place], [address] Hemoglobin (Bld) [Mass/Vol] 14.8 g/dL Normal 13.0-16.5 [facility] Comment on above: Performed By: #### L 501.9520, L500.4050, L500.4100, L100.0100, L501.9985 #### [facility] [address] [place], [address] IG% 0.300 Normal 0.0-0.9 [facility] Comment on above: Result Comment: IG% - Immature Granulocytes (promyelocytes, myelocytes and metamyelocytes) > 1% indicates that a LEFT SHIFT is Present. Performed By: #### L 501.9520, L500.4050, L500.4100, L100.0100, L501.9985 #### [facility] [address] [place], [address] Lymphocytes/100 WBC (Bld) 30.4 % Normal 19-41 [facility] Comment on above: Performed By: #### L 501.9520, L500.4050, L500.4100, L100.0100, L501.9985 #### [facility] [address] [place], [address] MCH (RBC) [Entitic mass] 28.3 pg Normal 27.0-32.0 [facility] Comment on above: Performed By: #### L 501.9520, L500.4050, L500.4100, L100.0100, L501.9985 #### [facility] [address] [place], [address] MCHC (RBC) [Mass/Vol] 33.2 g/dL Normal 32-36 [facility] Comment on above: Performed By: #### L 501.9520, L500.4050, L500.4100, L100.0100, L501.9985 #### [facility] [address] [place], [address] MCV (RBC) [Entitic vol] 85.3 fL Normal 80-94 [facility] Comment on above: Performed By: #### L 501.9520, L500.4050, L500.4100, L100.0100, L501.9985 #### [facility] [address] [place], [address] Monocytes/100 WBC (Bld) 8.3 % Normal 0-10 [facility] Comment on above: Performed By: #### L 501.9520, L500.4050, L500.4100, L100.0100, L501.9985 #### [facility] [address] [place], [address] Neutrophils/100 WBC (Bld) 58.0 % Normal 47-70 [facility] Comment on above: Performed By: #### L 501.9520, L500.4050, L500.4100, L100.0100, L501.9985 #### [facility] [address] [place], [address] Nucleated RBC (Bld) [#/Vol] 0 10*3/uL Normal 0-5 [facility] Comment on above: Performed By: #### L 501.9520, L500.4050, L500.4100, L100.0100, L501.9985 #### [facility] [address] [place], [address] Platelet mean volume (Bld) [Entitic vol] 10.0 fL Normal 6.2-12.0 [facility] Comment on above: Performed By: #### L 501.9520, L500.4050, L500.4100, L100.0100, L501.9985 #### [facility] [address] [place], [address] Platelets (Bld) [#/Vol] 285 10*3/uL Normal 150-450 [facility] Comment on above: Performed By: #### L 501.9520, L500.4050, L500.4100, L100.0100, L501.9985 #### [facility] [address] [place], [address] RBC (Bld) [#/Vol] 5.23 10*6/uL Normal 4.6-6.2 [facility] Comment on above: Performed By: #### L 501.9520, L500.4050, L500.4100, L100.0100, L501.9985 #### [facility] [address] [place], [address] RDW SD 38.2 fl Normal 35.1-43.9 [facility] Comment on above: Performed By: #### L 501.9520, L500.4050, L500.4100, L100.0100, L501.9985 #### [facility] [address] [place], [address] WBC (Bld) [#/Vol] 7.6 10*3/uL Normal 4.4-11.0 [facility] Comment on above: Performed By: #### L 501.9520, L500.4050, L500.4100, L100.0100, L501.9985 #### [facility] [address] [place], [address] Carbon dioxide measurementOr dered By: Mitch Rudd on 07-04-2024 CO2 [Moles/Vol] 26.0 mmol/L 21.0-32.0 [facility] Chloride measurementOrdered By: Mitch Rudd on 07-04-2024 Chloride [Moles/Vol] 106 mmol/L 98-107 [facility] Comprehensive Metabolic Prof ilon 07-04-2024 Albumin [Mass/Vol] 3.4 g/dL Normal 3.2-5.0 [facility] Comment on above: Performed By: #### L 100.0100, L501.5200, L500.2500, L501.2300 #### [facility] [address] [place], [address] Albumin/Globulin [Mass ratio] 0.9 {ratio} Normal 0.9-2.4 [facility] Comment on above: Performed By: #### L 100.0100, L501.5200, L500.2500, L501.2300 #### [facility] [address] [place], [address] ALK P 88 U/L Normal 45-117 [facility] Comment on above: Performed By: #### L 100.0100, L501.5200, L500.2500, L501.2300 #### [facility] [address] [place], [address] ALT [Catalytic activity/Vol] 39 U/L Normal 16-61 [facility] Comment on above: Performed By: #### L 100.0100, L501.5200, L500.2500, L501.2300 #### [facility] [address] [place], [address] AST [Catalytic activity/Vol] 28 U/L Normal 15-37 [facility] Comment on above: Result Comment: Mode rate Hemolysis, Result may be falsely increased. Performed By: #### L 100.0100, L501.5200, L500.2500, L501.2300 #### [facility] [address] [place], [address] Bilirubin [Mass/Vol] 0.50 mg/dL Normal 0.20-1.00 [facility] Comment on above: Result Comment: For patients on eltrombopag therapy, use of Dimension [place] TBIL is not recommended. Performed By: #### L 100.0100, L501.5200, L500.2500, L501.2300 #### [facility] [address] [place], [address] BUN/CRE 16.8 RATIO Normal 10-20 [facility] Comment on above: Performed By: #### L 100.0100, L501.5200, L500.2500, L501.2300 #### [facility] [address] [place], [address] CA,Total 8.9 mg/dL Normal 8.5-10.1 [facility] Comment on above: Performed By: #### L 100.0100, L501.5200, L500.2500, L501.2300 #### [facility] [address] [place], [address] Chloride [Moles/Vol] 106 mmol/L Normal 98-107 [facility] Comment on above: Performed By: #### L 100.0100, L501.5200, L500.2500, L501.2300 #### [facility] [address] [place], [address] CO2 [Moles/Vol] 26.0 mmol/L Normal 21.0-32.0 [facility] Comment on above: Performed By: #### L 100.0100, L501.5200, L500.2500, L501.2300 #### [facility] [address] [place], [address] Creatinine [Mass/Vol] 0.89 mg/dL Normal 0.70-1.30 [facility] Comment on above: Result Comment: The validity of the calculated GFR GFRAA in patients over 70 years has not been determined. Clinical correlation is essential. Performed By: #### L 100.0100, L501.5200, L500.2500, L501.2300 #### [facility] [address] [place], [address] EST GFR - AA 115 mL/min Normal >60 [facility] Comment on above: Result Comment: Afri can [place] GFR Calc Performed By: #### L 100.0100, L501.5200, L500.2500, L501.2300 #### [facility] [address] [place], [address] GAP 6 Normal 5-15 [facility] Comment on above: Performed By: #### L 100.0100, L501.5200, L500.2500, L501.2300 #### [facility] [address] [place], [address] GFR/1.73 sq M.predicted among non-blacks MDRD (S/P/Bld) [Vol rate/Area] 95 mL/min/{1.73_m2} Normal >60 [facility] Comment on above: Result Comment: Non- GFR Calc Performed By: #### L 100.0100, L501.5200, L500.2500, L501.2300 #### [facility] [address] [place], [address] Globulin (S) [Mass/Vol] 3.8 g/dL Normal 2.2-4.2 [facility] Comment on above: Performed By: #### L 100.0100, L501.5200, L500.2500, L501.2300 #### [facility] [address] [place], [address] Glucose [Mass/Vol] 151 mg/dL High 74-106 [facility] Comment on above: Result Comment: Fast ing Glucose result greater than or equal to 126 mg/dL suggests DIABETES MELLITUS per A.D.A. criteria. Performed By: #### L 100.0100, L501.5200, L500.2500, L501.2300 #### [facility] [address] [place], [address] Potassium [Moles/Vol] 3.7 mmol/L Normal 3.5-5.1 [facility] Comment on above: Result Comment: Mode rate Hemolysis, Result may be falsely increased. Performed By: #### L 100.0100, L501.5200, L500.2500, L501.2300 #### [facility] [address] [place], [address] Sodium [Moles/Vol] 139 mmol/L Normal 136-145 [facility] Comment on above: Performed By: #### L 100.0100, L501.5200, L500.2500, L501.2300 #### [facility] [address] [place], [address] T PROT 7.2 g/dL Normal 6.4-8.2 [facility] Comment on above: Performed By: #### L 100.0100, L501.5200, L500.2500, L501.2300 #### [facility] [address] [place], [address] Urea nitrogen [Mass/Vol] 15 mg/dL Normal 7-18 [facility] Comment on above: Performed By: #### L 100.0100, L501.5200, L500.2500, L501.2300 #### [facility] [address] [place], [address] Eosinophil percentageOrdered By: Mitch Rudd on 07-04-2024 Eosinophils/100 WBC (Bld) 2.1 % 0-5 [facility] Erythrocyte distribution wid th ratioOrdered By: Mitch Rudd on 07-04-2024 Erythrocyte distribution width (RBC) [Ratio] 12.3 % 11.6-14.6 [facility] Erythrocyte distribution wid th standard deviationOrdered By: Mitch Rudd on 07-04-2024 Erythrocyte distribution width (RBC) [Entitic vol] 38.2 fL 35.1-43.9 [facility] Erythrocyte distribution width (RBC) [Ratio] 38.2 fl 35.1-43.9 [facility] Estimated glomerular filtrat ion rate (GFR) AmericanOrdered By: Mitch Rudd on 07-04-2024 Estimated GFR (MDRD) Amer 115 mL/min >60 [facility] Comment on above: GFR Calc Glomerular filtration rate ( GFR) estimationOrdered By: Mitch Rudd on 07-04-2024 Estimated GFR (MDRD) Non-Af Amer 95 mL/min >60 [facility] Comment on above: Non- GFR Calc GFR/1.73 sq M.predicted among non-blacks MDRD (S/P/Bld) [Vol rate/Area] 95 mL/min/{1.73_m2} >60 [facility] Comment on above: Non- GFR Calc Glucose measurementOrdered B y: Mitch Rudd on 07-04-2024 Glucose [Mass/Vol] 151 mg/dL High 74-106 [facility] Comment on above: Fasting Glucose resu lt greater than or equal to 126 mg/dL suggests DIABETES MELLITUS per A.D.A. criteria. Hematocrit Auto (Bld) [Volum e fraction]Ordered By: Mitch Rudd on 07-04-2024 Hematocrit (Bld) [Volume fraction] 44.6 % 40-54 [facility] Hemoglobin A1con 07-04-2024 HbA1c (Bld) [Mass fraction] 5.9 % High 3.8-5.6 [facility] Comment on above: Result Comment: Norm al < 5.7 % Prediabetic 5.7 - 6.4 % Diabetic >or= 6.5 % Please note range changes. Performed By: #### L 501.7390, L500.4050, L500.4100, L100.0100, L501.9985 #### [facility] [address] [place], [address] Hemoglobin A1c percentageOrd ered By: Mitch Tobin on 07-04-2024 HbA1c (Bld) [Mass fraction] 5.9 % High 3.8-5.6 [facility] Comment on above: Normal < 5.7 % Predi abetic 5.7 - 6.4 % Diabetic >or= 6.5 % Please note range changes. Hemoglobin measurementOrdere d By: Mitch Rudd on 07-04-2024 Hemoglobin (Bld) [Mass/Vol] 14.8 g/dL 13.0-16.5 [facility] High density lipoprotein (HD L) measurementOrdered By: Mitch Rudd on 07-04-2024 Cholesterol in HDL [Mass/Vol] 35 mg/dL Low >40 [facility] Comment on above: The drugs N-Acetylcy steine and Metamizole may falsely depress this assay. Reference Range HDL <40 mg/dL Low HDL Cholesterol HDL >or= 60 mg/dL High HDL Cholesterol Immature granulocytes/100 WB C Auto (Bld)Ordered By: Mitch Rudd on 07-04-2024 Immature granulocytes/100 WBC (Bld) 0.300 % 0.0-0.9 [facility] Comment on above: IG% - Immature Granu locytes (promyelocytes, myelocytes and metamyelocytes) > 1% indicates that a LEFT SHIFT is Present. Laboratory - Chemistry and C hemistry - challengeOrdered By: Mitch Rudd on 07-04-2024 AST [Catalytic activity/Vol] 28 U/L 15-37 [facility] Comment on above: Moderate Hemolysis, Result may be falsely increased. Lipid Profileon 07-04-2024 Cholesterol [Mass/Vol] 118 mg/dL Normal 200 [facility] Comment on above: Result Comment: <200 mg/dL Desirable 200-240 mg/dL Borderline >240 mg/dL High Risk Performed By: #### L 100.0100, L501.5200, L500.2500, L501.2300 #### [facility] [address] [place], [address] Cholesterol in HDL [Mass/Vol] 35 mg/dL Low [facility] Comment on above: Result Comment: The drugs N-Acetylcysteine and Metamizole may falsely depress this assay. Reference Range HDL <40 mg/dL Low HDL Cholesterol HDL >or= 60 mg/dL High HDL Cholesterol Performed By: #### L 100.0100, L501.5200, L500.2500, L501.2300 #### [facility] [address] [place], [address] Cholesterol in LDL [Mass/Vol] 49 mg/dL Normal 0-130 [facility] Comment on above: Performed By: #### L 100.0100, L501.5200, L500.2500, L501.2300 #### [facility] [address] [place], [address] Cholesterol in VLDL [Mass/Vol] 34 mg/dL Normal 5-40 [facility] Comment on above: Performed By: #### L 100.0100, L501.5200, L500.2500, L501.2300 #### [facility] [address] [place], [address] Triglyceride [Mass/Vol] 168 mg/dL Normal [facility] Comment on above: Result Comment: The drugs N-Acetylcysteine and Metamizole may falsely depress this assay. Serum Triglycerides Reference Interval Normal <150 mg/dL Borderline high 150 - 199 mg/dL High 200 - 499 mg/dL Very High > or = 500 mg/dL Performed By: #### L 100.0100, L501.5200, L500.2500, L501.2300 #### [facility] [address] [place], [address] Low density lipoprotein (LDL ) cholesterol measurementOrdered By: Mitch Rudd on 07-04-2024 Cholesterol in LDL [Mass/Vol] 49 mg/dL 0-130 [facility] Lymphocytes Auto (Unsp spec) [#/Vol]Ordered By: Mitch Rudd on 07-04-2024 Lymphocytes (Bld) [#/Vol] 2.32 10*3/uL 0.83-4.51 [facility] Lymphocytes/100 WBC Auto (Un sp spec)Ordered By: Mitch Rudd on 07-04-2024 Lymphocytes/100 WBC (Bld) 30.4 % 19-41 [facility] MCV (mean corpuscular volume ) determinationOrdered By: Mitch Rudd on 07-04-2024 MCV (RBC) [Entitic vol] 85.3 fL 80-94 [facility] Mean corpuscular hemoglobin (MCH) determinationOrdered By: Mitch Rudd on 07-04-2024 MCH (RBC) [Entitic mass] 28.3 pg 27.0-32.0 [facility] Mean corpuscular hemoglobin concentration (MCHC) determinationOrdered By: Mitch Rudd on 07-04-2024 MCHC (RBC) [Mass/Vol] 33.2 g/dL 32-36 [facility] Mean platelet volume determi nationOrdered By: Mitch Rudd on 07-04-2024 Platelet mean volume (Bld) [Entitic vol] 10.0 fL 6.2-12.0 [facility] Monocyte percentageOrdered B y: Mitch Rudd on 07-04-2024 Monocytes/100 WBC (Bld) 8.3 % 0-10 [facility] Neutrophil percentageOrdered By: Mitch Rudd on 07-04-2024 Neutrophils/100 WBC (Bld) 58.0 % 47-70 [facility] Nucleated red blood cell per centageOrdered By: Mitch Rudd on 07-04-2024 Nucleated RBC/100 WBC (Bld) [Ratio] 0 % 0-5 [facility] Platelet countOrdered By: Juice Rudd on 07-04-2024 Platelets (Bld) [#/Vol] 285 10*3/uL 150-450 [facility] Potassium measurementOrdered By: Mitch Rudd on 07-04-2024 Potassium [Moles/Vol] 3.7 mmol/L 3.5-5.1 [facility] Comment on above: Moderate Hemolysis, Result may be falsely increased. RBC Auto (Bld) [#/Vol]Ordere d By: Mitch Rudd on 07-04-2024 RBC (Bld) [#/Vol] 5.23 10*6/uL 4.6-6.2 [facility] Serum anion gap measurementO rdered By: Mitch Rudd on 07-04-2024 Anion gap [Moles/Vol] 6 mmol/L 5-15 [facility] Serum globulin measurementOr dered By: Mitch Rudd on 07-04-2024 Globulin (S) [Mass/Vol] 3.8 g/dL 2.2-4.2 [facility] Serum or plasma alanine ansari otransferase (ALT) measurementOrdered By: Mitch Rudd on 07-04-2024 ALT [Catalytic activity/Vol] 39 U/L 16-61 [facility] Serum or plasma albumin claudia urement (mass/volume)Ordered By: Mitch Rudd 07-04-2024 Albumin [Mass/Vol] 3.4 g/dL 3.2-5.0 [facility] Serum or plasma alkaline donnell sphatase measurementOrdered By: Mitch Rudd 07-04-2024 ALP [Catalytic activity/Vol] 88 U/L 45-117 [facility] Serum or plasma calcium claudia urement (mass/volume)Ordered By: Mitch Rudd 07-04-2024 Calcium [Mass/Vol] 8.9 mg/dL 8.5-10.1 [facility] Serum or plasma cholesterol measurement (mass/volume)Ordered By: Mitch Rudd 07-04-2024 Cholesterol [Mass/Vol] 118 mg/dL <200 [facility] Comment on above: <200 mg/dL Desirable 200-240 mg/dL Borderline >240 mg/dL High Risk Serum or plasma creatinine m easurement (mass/volume)Ordered By: Mitch Rudd 07-04-2024 Creatinine [Mass/Vol] 0.89 mg/dL 0.70-1.30 [facility] Comment on above: The validity of the calculated GFR & GFRAA in patients over 70 years has not been determined. Clinical correlation is essential. Serum or plasma thyroid stim ulating hormone (TSH) measurement (units/volume)Ordered By: Mitch Rudd on 07-04-2024 TSH Qn 1.790 uIU/mL 0.358-3.740 [facility] Serum or plasma urea nitroge n measurement (mass/volume)Ordered By: Mitch Rudd on 07-04-2024 Urea nitrogen [Mass/Vol] 15 mg/dL 7-18 [facility] Sodium levelOrdered By: Mitch Rudd on 07-04-2024 Sodium [Moles/Vol] 139 mmol/L 136-145 [facility] TSH QnOrdered By: Mitch Rudd o n 07-04-2024 Thyroid Stimulating Hormone (TSH) 1.790 uIU/mL 0.358-3.740 [facility] Thyroid Stim Hormone (TSH)on 07-04-2024 TSH 1.790 uIU/mL Normal 0.358-3.740 [facility] Comment on above: Performed By: #### L 100.0100, L501.5200, L500.2500, L501.2300 #### [facility] [address] [place], [address] Total proteinOrdered By: Mitch Rudd on 07-04-2024 Protein [Mass/Vol] 7.2 g/dL 6.4-8.2 [facility] Triglycerides measurementOrd ered By: Mitch Rudd on 07-04-2024 Triglyceride [Mass/Vol] 168 mg/dL <199 [facility] Comment on above: The drugs N-Acetylcy steine and Metamizole may falsely depress this assay.Serum Triglycerides Reference Interval Normal <150 mg/dL Borderline high 150 - 199 mg/dL High 200 - 499 mg/dL Very High > or = 500 mg/dL Very low density lipoprotein (VLDL) cholesterol measurementOrdered By: Mitch Rudd on 07-04-2024 Very low density lipoprotein (VLDL) cholesterol measurement 34 mg/dL 5-40 [facility] VLDL Cholesterol 34 mg/dL 5-40 [facility] White blood cell (WBC) count Ordered By: Mitch Rudd on 07-04-2024 WBC (Bld) [#/Vol] 7.6 10*3/uL 4.4-11.0 [facility] Discharge Instructionon 04-14 Discharge Instruction [facility] Medical Records Department [address] [place] [address] Instructions for Home/Discharge Instructions 05/05/24 1119 MR#: [id number] Acct: [id number] Name: EVAN MORENO Rep #: [id number] : 1970 53 From: Seamus Moseley DO PCP: Dr. Mitch Rudd MD Status:ADM DARRIAN Discharge Instructions Diet Discharge Diet: No restrictions DC O2, CPAP, BIPAP needs Home O2 Discharge instructions: No Dressing / Incision Discharge Activity: Return to Normal Activity Weight Bearing Status: Full weight bearing Follow Up Care Test Results: Test results from this visit will be discussed in further detail at your follow-up appointment, if applicable. Discharge Plan Admission Admit Date/Time: 05/04/24 20:17 Primary Reason for Your Visit: allergic reaxtion to lisinopril Attending Provider: Seamus Moseley Primary Care Provider: Mitch Rudd Chi Consulting Providers: Anderson Mcdaniel Discharge Orders/Prescriptions Prescriptions: New metoprolol succinate 50 mg tablet extended release 24 hr 50 mg PO DAILY Qty: 30 0RF Continued amlodipine 10 mg Tablet 10 mg PO DAILY Qty: 90 0RF hydrochlorothiazide 25 mg Tablet 25 mg PO DAILY Qty: 90 0RF aspirin 81 mg capsule 81 mg PO DAILY Qty: 9 0RF citalopram 20 mg tablet 20 mg PO DAILY Discontinued lisinopril 20 mg tablet 20 mg PO DAILY Qty: 90 0RF Referrals / Follow Up: Mitch Rudd Chi, MD [Primary Care Provider] - In 1 Week Disposition Disposition (needs filled in before D/C Order can be placed): Home, Self Care 05/05/24 1124 Seamus Moseley DO CC: Dr. Anderson Mcdaniel MD; Dr. Mitch Rudd MD Signed Normal [facility] Emergency Department Summary on 05-04-2024 Emergency Department Summary [facility] Medical Records Department [address] [place] [address] Emergency Department Summary 05/04/24 MR#: [id number] Acct: [id number] Name: EVAN MORENO Rep #: [id number] : 1970 53 From: Mike Yanes DO PCP: Dr. Mitch Rudd MD Status:REG ER Location: ED HPI History of Present Illness Chief Complaint: Allergic Reaction Narrative Narrative: Chief complaint and HPI: Tongue swelling. 53-year-old male with past medical history of HTN presents for evaluation of tongue swelling. Patient states that he was watching TV approximately 30 minutes prior to arrival when he noticed tongue swelling. He states that his tongue continued to swell which is why he presents for evaluation. He denies any history of anaphylaxis. Denies allergies to any food or medication other than hydralazine. Patient does take lisinopril. He states that he has been on this medication for a while. He denies any new changes in food, body products, detergents. He denies any fever, chills, shortness of breath, chest pain, wheezing, stridor, nausea, vomiting, abdominal pain. Review of systems: See HPI Medications: As listed on the chart Allergies: As listed on the chart PFSH: Per chart Vital signs: As listed on the chart. Reviewed. Physical exam: Gen: A O x3 Head: Normocephalic, atraumatic Eyes: No sclera icterus, conjunctiva clear, PERRL, EOMI, no periorbital edema ENT: Moist mucous membranes, tolerating secretions, tongue enlarged, unable to see posterior oropharynx or uvula, poor dentition, no submandibular swelling, no lip or facial swelling Neck: Trachea midline, No JVD, Full ROM, no swelling CV: RRR, no murmurs Resp: Lungs CTA BL, no w/r/c, no stridor GI: Abd soft, non-distended, non-tender, no r/r/g Musc: Full ROM, no deformity Skin: Warm, dry, no rash Neuro: Alert, oriented, grossly intact, sensation intact Psych: Cooperative, appropriate mood and affect [facility] Medical History Polycythemia Chronic viral hepatitis B with delta-agent Anxiety HLD (hyperlipidemia) Elevated LFTs Type 2 diabetes mellitus Fatty liver HTN (hypertension) Home Medications ???Medication ???Instructions ???Recorded ???Last Taken ???Type amlodipine 10 mg tablet 10 mg PO DAILY #90 tabs 03/27/24 Unknown Rx aspirin 81 mg capsule 81 mg PO DAILY #9 caps 03/27/24 Unknown Rx hydrochlorothiazide 25 mg tablet 25 mg PO DAILY #90 tabs 03/27/24 Unknown Rx lisinopril 20 mg tablet 20 mg PO DAILY #90 tabs 03/27/24 Unknown Rx Allergy/AdvReac Type Severity Reaction Status Date / Time lisinopril Allergy Severe Angioedema Verified 05/04/24 18:23 hydralazine AdvReac Mild Vomiting Verified 05/04/24 18:17 Social History Smoking Status: Current every day smoker tobacco type: cigarettes and e-cigarettes alcohol intake: current substance use type: does not use EXAM Physical Exam Const Vital Signs: 05/04/24 18:17 05/04/24 18:27 05/04/24 19:15 Temperature 97 F L Temperature Source Temporal Pulse Rate 69 61 Respiratory Rate 18 16 Respiratory Effort Normal Respiratory Depth Normal Respiratory Pattern Normal Blood Pressure 171/90 H 139/76 H Blood Pressure Mean 117 97 Pulse Ox 100 98 Oxygen Delivery Method Room Air Room Air Room Air MDM MDM MDM Narrative Medical decision making narrative: 53-year-old male with past medical history of HTN presents for evaluation of tongue swelling. Differential diagnosis includes but is not limited to QUAGN induced angioedema, allergic angioedema. Patient denies any family history of angioedema suspect less likely hereditary angioedema. Given that I cannot fully rule out allergic reaction IM epinephrine, IV Benadryl, IV Pepcid, IV Solu- Medrol ordered. TXA ordered for likely QUANG induced angioedema. Patient will be monitored. Patient was monitored for almost 2 hours in the emergency department without any improvement in his tongue swelling. At this point in time, patient will warrant observation to monitor for continued swelling/airway protection. Patient was updated of the plan and confirmed understanding. Patient was discussed with Dr. Mcdaniel who accepted. Impression: 1. QUANG inhibitor angioedema Discharge Plan Triage Chief Complaint: Allergic Reaction ED Provider: Mike Yanes Dx/Rx/DC Orders Prescriptions: No Action amlodipine 10 mg Tablet 10 mg PO DAILY Qty: 90 0RF hydrochlorothiazide 25 mg Tablet 25 mg PO DAILY Qty: 90 0RF lisinopril 20 mg tablet 20 mg PO DAILY Qty: 90 0RF aspirin 81 mg capsule 81 mg PO DAILY Qty: 9 0RF Primary Care Provider: Mitch Rudd Chi Referrals: Mitch Rudd Chi, MD [Primary Care Provider] - Print Language: Turkmen (more content not included)... Normal [facility] H AND P Exam - Hospitaliston 05-04-2024 H&P Exam - Hospitalist [facility] Medical Records Department [address] [place] [address] H P Exam - Hospitalist 05/04/242017 MR#: [id number] Acct: [id number] Name: EVAN MOERNO Rep #: [id number] : 1970 53 From: Anderson Mcdaniel MD PCP: Dr. Mitch Rudd MD Status:ADM DARRIAN Location: MS3 XV702-6 HPI - General General Date of Admission: 05/04/24 HPI Narrative EVAN MORENO, is a 53 M who presents to the hospital with allergic reaction, the only medication he takes is lisinopril that could have caused a reaction like this. He denies any shortness of breath, or new food. In the ER he was given a dose of Benadryl as well as epinephrine, Pepcid, Solu-Medrol, tranexamic acid. Airway does not appear compromised he does have an enlarged tongue and he is 98% on room air. [facility] Medical History Polycythemia Chronic viral hepatitis B with delta-agent Anxiety HLD (hyperlipidemia) Elevated LFTs Type 2 diabetes mellitus Fatty liver HTN (hypertension) Home Medications ???Medication ???Instructions ???Recorded ???Last Taken ???Type amlodipine 10 mg tablet 10 mg PO DAILY #90 tabs 03/27/24 Unknown Rx aspirin 81 mg capsule 81 mg PO DAILY #9 caps 03/27/24 Unknown Rx hydrochlorothiazide 25 mg tablet 25 mg PO DAILY #90 tabs 03/27/24 Unknown Rx lisinopril 20 mg tablet 20 mg PO DAILY #90 tabs 03/27/24 Unknown Rx citalopram 20 mg tablet 20 mg PO DAILY 05/04/24 Unknown History Allergy/AdvReac Type Severity Reaction Status Date / Time lisinopril Allergy Severe Angioedema Verified 05/04/24 18:23 hydralazine AdvReac Mild Vomiting Verified 05/04/24 18:17 Family History adopted adopted Surgical History no surgical history no surgical history Social History Smoking Status: Current every day smoker tobacco type: cigarettes and e-cigarettes alcohol intake: current substance use type: does not use ROS Constitutional Constitutional: Denies chills, fatigue, fever(s) or malaise Eyes Eyes: Denies blurry vision ENT HEENT: Reports tongue swelling; Denies headache(s) or nasal discharge Cardiovascular Cardiovascular: Denies chest pain, dyspnea on exertion or syncope Respiratory/Chest Respiratory/Chest: Denies cough, shortness of breath at rest or shortness of breath with exertion Gastrointestinal Gastrointestinal: Denies constipation, diarrhea, nausea or vomiting Genitourinary Genitourinary: Denies dysuria Neurologic Neurologic: Denies focal weakness, numbness or tremor(s) Psychiatric Psychiatric: Denies anxiety or depression Vital Signs Vital Signs Vital Signs: 05/04/24 18:17 05/04/24 18:27 05/04/24 19:15 Temperature 97 F L Temperature Source Temporal Pulse Rate 69 61 Respiratory Rate 18 16 Respiratory Effort Normal Respiratory Depth Normal Respiratory Pattern Normal Blood Pressure 171/90 H 139/76 H Blood Pressure Mean 117 97 Pulse Ox 100 98 Oxygen Delivery Method Room Air Room Air Room Air 05/04/24 20:00 Temperature 99.5 F H Temperature Source Pulse Rate 61 Respiratory Rate 14 Respiratory Effort Respiratory Depth Respiratory Pattern Blood Pressure 128/72 H Blood Pressure Mean 90 Pulse Ox 95 Oxygen Delivery Method Weight Weight: 231 lb 0.711 oz Body Mass Index (BMI) 36.1 Physical Exam Narrative General: Alert, Oriented x3, Cooperative, No apparent distress HEENT: Atraumatic, PERRLA, EOMI, Normocephalic Oral: Moist Mucosa, enlarged tongue with no airway compromise Neck: Supple, No JVD Lungs: Clear to auscultation, Normal air movement, No rhonchi, No wheeze, No rales Cardiovascular: Regular rate, Regular Rhythm, Normal S1, Normal S2, No murmurs Abdomen: Soft, Non Tender, Non-Distended, No Hepato-splenomegaly Extremities: No edema, Capillary Refill Less than 3 Seconds Skin: No rashes, No breakdown Musculoskeletal: No Tenderness to Palpation of Joints or Extremities Neurological: No focal neurological deficits, Motor Exam 5/5 strength throughout, Sensory exam intact to light touch and pain Psych/Mental Status: Normal Affect, Appropriate Assessment Plan Assessment/Plan (1) Allergic reaction: PLAN: Plan 1. Allergic reaction ??? Unclear if whether he was to lisinopril or something else, he denies any new foods ???He has already received treatment in the ER ??? Will monitor and discharge tomorrow morning 2. Essential HTN ??? Can resume his home medications except for lisinopril ??? Will monitor his blood pressures and make adjustments as necessary DVT: Ambulation Charges/Coding Visit Charges Inpatient E M: 21908 Init Hosp L2 05/05/24 0510 Cosigner Signature (if applicable): CC: Dr. Gomez (more content not included)... Normal [facility] Absolute neutrophil countOrd ered By: Mitch Tobin on 04-21-2024 Neutrophils (Bld) [#/Vol] 4.1 10*3/uL 2.0-7.7 [facility] Albumin to globulin ratioOrd ered By: Mitch Rudd on 04-21-2024 Albumin/Globulin [Mass ratio] 1.0 {ratio} Normal 0.9-2.4 [facility] Comment on above: Performed By: #### L 100.0100, L501.5200, L500.2500, L501.2300 #### [facility] [address] [place], [address] Basophil percentageOrdered B y: Mitch Rudd on 04-21-2024 Basophils/100 WBC (Bld) 0.9 % 0-1 [facility] Bilirubin, totalOrdered By: Mitch Rudd on 04-21-2024 Bilirubin [Mass/Vol] 0.40 mg/dL Normal 0.20-1.00 [facility] Comment on above: For patients on eltr ombopag therapy, use of Dimension [place] TBIL is not recommended. Result Comment: For patients on eltrombopag therapy, use of Dimension [place] TBIL is not recommended. Performed By: #### L 100.0100, L501.5200, L500.2500, L501.2300 #### [facility] [address] [place], [address] Blood urea nitrogen (BUN)/cr eatinine ratioOrdered By: Mitch Rudd on 04-21-2024 Urea nitrogen/Creatinine [Mass ratio] 16.0 mg/mg 10-20 [facility] CBC W/Diff, Automatedon 12-0 -2023 Absolute Lymph 2.16 X10 3/uL Normal 0.83-4.51 [facility] Comment on above: Performed By: #### L 100.0100, L501.5200, L500.2500, L501.2300 #### [facility] [address] [place], [address] Absolute Neut 4.1 X10 3/uL Normal 2.0-7.7 [facility] Comment on above: Performed By: #### L 100.0100, L501.5200, L500.2500, L501.2300 #### [facility] [address] [place], [address] Basophils/100 WBC (Bld) 0.9 % Normal 0-1 [facility] Comment on above: Performed By: #### L 100.0100, L501.5200, L500.2500, L501.2300 #### [facility] [address] [place], [address] Eosinophils/100 WBC (Bld) 1.3 % Normal 0-5 [facility] Comment on above: Performed By: #### L 100.0100, L501.5200, L500.2500, L501.2300 #### [facility] [address] [place], [address] Erythrocyte distribution width (RBC) [Ratio] 11.4 % Low 11.6-14.6 [facility] Comment on above: Performed By: #### L 100.0100, L501.5200, L500.2500, L501.2300 #### [facility] [address] [place], [address] Hematocrit (Bld) [Volume fraction] 48.3 % Normal 40-54 [facility] Comment on above: Performed By: #### L 100.0100, L501.5200, L500.2500, L501.2300 #### [facility] [address] [place], [address] Hemoglobin (Bld) [Mass/Vol] 16.3 g/dL Normal 13.0-16.5 [facility] Comment on above: Performed By: #### L 100.0100, L501.5200, L500.2500, L501.2300 #### [facility] [address] [place], [address] IG% 0.100 Normal 0.0-0.9 [facility] Comment on above: Result Comment: IG% - Immature Granulocytes (promyelocytes, myelocytes and metamyelocytes) > 1% indicates that a LEFT SHIFT is Present. Performed By: #### L 100.0100, L501.5200, L500.2500, L501.2300 #### [facility] [address] [place], [address] Lymphocytes/100 WBC (Bld) 30.9 % Normal 19-41 [facility] Comment on above: Performed By: #### L 100.0100, L501.5200, L500.2500, L501.2300 #### [facility] [address] [place], [address] MCH (RBC) [Entitic mass] 28.2 pg Normal 27.0-32.0 [facility] Comment on above: Performed By: #### L 100.0100, L501.5200, L500.2500, L501.2300 #### [facility] [address] [place], [address] MCHC (RBC) [Mass/Vol] 33.7 g/dL Normal 32-36 [facility] Comment on above: Performed By: #### L 100.0100, L501.5200, L500.2500, L501.2300 #### [facility] [address] [place], [address] MCV (RBC) [Entitic vol] 83.6 fL Normal 80-94 [facility] Comment on above: Performed By: #### L 100.0100, L501.5200, L500.2500, L501.2300 #### [facility] [address] [place], [address] Monocytes/100 WBC (Bld) 7.9 % Normal 0-10 [facility] Comment on above: Performed By: #### L 100.0100, L501.5200, L500.2500, L501.2300 #### [facility] [address] [place], [address] Neutrophils/100 WBC (Bld) 58.9 % Normal 47-70 [facility] Comment on above: Performed By: #### L 100.0100, L501.5200, L500.2500, L501.2300 #### [facility] [address] [place], [address] Nucleated RBC (Bld) [#/Vol] 0 10*3/uL Normal 0-5 [facility] Comment on above: Performed By: #### L 100.0100, L501.5200, L500.2500, L501.2300 #### [facility] [address] [place], [address] Platelet mean volume (Bld) [Entitic vol] 10.0 fL Normal 6.2-12.0 [facility] Comment on above: Performed By: #### L 100.0100, L501.5200, L500.2500, L501.2300 #### [facility] [address] [place], [address] Platelets (Bld) [#/Vol] 291 10*3/uL Normal 150-450 [facility] Comment on above: Performed By: #### L 100.0100, L501.5200, L500.2500, L501.2300 #### [facility] [address] [place], [address] RBC (Bld) [#/Vol] 5.78 10*6/uL Normal 4.6-6.2 [facility] Comment on above: Performed By: #### L 100.0100, L501.5200, L500.2500, L501.2300 #### [facility] [address] [place], [address] RDW SD 34.5 fl Low 35.1-43.9 [facility] Comment on above: Performed By: #### L 100.0100, L501.5200, L500.2500, L501.2300 #### [facility] [address] [place], [address] WBC (Bld) [#/Vol] 7.0 10*3/uL Normal 4.4-11.0 [facility] Comment on above: Performed By: #### L 100.0100, L501.5200, L500.2500, L501.2300 #### [facility] [address] [place], [address] Carbon dioxide measurementOr dered By: Mitch Rudd on 04-21-2024 CO2 [Moles/Vol] 28.0 mmol/L Normal 21.0-32.0 [facility] Comment on above: Performed By: #### L 100.0100, L501.5200, L500.2500, L501.2300 #### [facility] [address] [place], [address] Chloride measurementOrdered By: Mitch Rudd on 04-21-2024 Chloride [Moles/Vol] 104 mmol/L Normal 98-107 [facility] Comment on above: Performed By: #### L 100.0100, L501.5200, L500.2500, L501.2300 #### [facility] [address] [place], [address] Comprehensive Metabolic Prof milena 04-21-2024 ALK P 70 U/L Normal 45-117 [facility] Comment on above: Performed By: #### L 100.0100, L501.5200, L500.2500, L501.2300 #### [facility] [address] [place], [address] BUN/CRE 16.0 RATIO Normal 10-20 [facility] Comment on above: Performed By: #### L 100.0100, L501.5200, L500.2500, L501.2300 #### [facility] [address] [place], [address] CA,Total 9.1 mg/dL Normal 8.5-10.1 [facility] Comment on above: Performed By: #### L 100.0100, L501.5200, L500.2500, L501.2300 #### [facility] [address] [place], [address] EST GFR - AA 108 mL/min Normal >60 [facility] Comment on above: Result Comment: Afri can Angolan GFR Calc Performed By: #### L 100.0100, L501.5200, L500.2500, L501.2300 #### [facility] [address] [place], [address] GAP 6 Normal 5-15 [facility] Comment on above: Performed By: #### L 100.0100, L501.5200, L500.2500, L501.2300 #### [facility] [address] [place], [address] GFR/1.73 sq M.predicted among non-blacks MDRD (S/P/Bld) [Vol rate/Area] 89 mL/min/{1.73_m2} Normal >60 [facility] Comment on above: Result Comment: Non- GFR Calc Performed By: #### L 100.0100, L501.5200, L500.2500, L501.2300 #### [facility] [address] [place], [place], [address] T PROT 7.8 g/dL Normal 6.4-8.2 [facility] Comment on above: Performed By: #### L 100.0100, L501.5200, L500.2500, L501.2300 #### [facility] [address] [place], [address] Comprehensive Metabolic Prof ilOrdered By: Mitch Rudd on 04-21-2024 AST [Catalytic activity/Vol] 18 U/L Normal 15-37 [facility] Comment on above: Performed By: #### L 100.0100, L501.5200, L500.2500, L501.2300 #### [facility] [address] [place], [place], [address] Eosinophil percentageOrdered By: Mitch Rudd on 04-21-2024 Eosinophils/100 WBC (Bld) 1.3 % 0-5 [facility] Erythrocyte distribution wid th ratioOrdered By: Mitch Rudd on 04-21-2024 Erythrocyte distribution width (RBC) [Ratio] 11.4 % Low 11.6-14.6 [facility] Erythrocyte distribution wid th standard deviationOrdered By: Mitch Rudd on 04-21-2024 Erythrocyte distribution width (RBC) [Entitic vol] 34.5 fL Low 35.1-43.9 [facility] Estimated glomerular filtrat ion rate (GFR) AmericanOrdered By: Mitch Rudd on 04-21-2024 Estimated GFR (MDRD) Amer 108 mL/min >60 [facility] Comment on above: GFR Calc Glomerular filtration rate ( GFR) estimationOrdered By: Mitch Rudd on 04-21-2024 Estimated GFR (MDRD) Non-Af Amer 89 mL/min >60 [facility] Comment on above: Non- GFR Calc Glucose measurementOrdered B y: Mitch Rudd on 04-21-2024 Glucose [Mass/Vol] 124 mg/dL High 74-106 [facility] Comment on above: Fasting Glucose resu lt from 100 to 125 mg/dL suggests IMPAIRED HOMEOSTASIS per A.D.A. criteria. Result Comment: Fast ing Glucose result from 100 to 125 mg/dL suggests IMPAIRED HOMEOSTASIS per A.D.A. criteria. Performed By: #### L 100.0100, L501.5200, L500.2500, L501.2300 #### [facility] [address] [place], [address] Hematocrit Auto (Bld) [Volum e fraction]Ordered By: Mitch Rudd on 04-21-2024 Hematocrit (Bld) [Volume fraction] 48.3 % 40-54 [facility] Hemoglobin A1con 04-21-2024 HbA1c (Bld) [Mass fraction] 6.2 % High 3.8-5.6 [facility] Comment on above: Result Comment: Norm al < 5.7 % Prediabetic 5.7 - 6.4 % Diabetic >or= 6.5 % Please note range changes. Performed By: #### L 100.0100, L501.5200, L500.2500, L501.2300 #### [facility] [address] [place], [place], [address] Hemoglobin A1c percentageOrd ered By: Mitch Rudd on 04-21-2024 HbA1c (Bld) [Mass fraction] 6.2 % High 3.8-5.6 [facility] Comment on above: Normal < 5.7 % Predi abetic 5.7 - 6.4 % Diabetic >or= 6.5 % Please note range changes. Hemoglobin measurementOrdere d By: Mitch Rudd on 04-21-2024 Hemoglobin (Bld) [Mass/Vol] 16.3 g/dL 13.0-16.5 [facility] High density lipoprotein (HD L) measurementOrdered By: Mitch Rudd on 04-21-2024 Cholesterol in HDL [Mass/Vol] 45 mg/dL Normal [facility] Comment on above: The drugs N-Acetylcy steine and Metamizole may falsely depress this assay. Reference Range HDL <40 mg/dL Low HDL Cholesterol HDL >or= 60 mg/dL High HDL Cholesterol Result Comment: The drugs N-Acetylcysteine and Metamizole may falsely depress this assay. Reference Range HDL <40 mg/dL Low HDL Cholesterol HDL >or= 60 mg/dL High HDL Cholesterol Performed By: #### L 100.0100, L501.5200, L500.2500, L501.2300 #### [facility] [address] [place], [address] Immature granulocytes/100 WB C Auto (Bld)Ordered By: Mitch Rudd on 04-21-2024 Immature granulocytes/100 WBC (Bld) 0.100 % 0.0-0.9 [facility] Comment on above: IG% - Immature Granu locytes (promyelocytes, myelocytes and metamyelocytes) > 1% indicates that a LEFT SHIFT is Present. Lipid Profileon 04-21-2024 Cholesterol in VLDL [Mass/Vol] 23 mg/dL Normal 5-40 [facility] Comment on above: Performed By: #### L 100.0100, L501.5200, L500.2500, L501.2300 #### [facility] [address] [place], [address] Low density lipoprotein (LDL ) cholesterol measurementOrdered By: Mitch Rudd on 04-21-2024 Cholesterol in LDL [Mass/Vol] 73 mg/dL Normal 0-130 [facility] Comment on above: Performed By: #### L 100.0100, L501.5200, L500.2500, L501.2300 #### [facility] [address] [place], [address] Lymphocytes Auto (Unsp spec) [#/Vol]Ordered By: Mitch Rudd on 04-21-2024 Lymphocytes (Bld) [#/Vol] 2.16 10*3/uL 0.83-4.51 [facility] Lymphocytes/100 WBC Auto (Un sp spec)Ordered By: Mitch Rudd on 04-21-2024 Lymphocytes/100 WBC (Bld) 30.9 % 19-41 [facility] MCV (mean corpuscular volume ) determinationOrdered By: Mitch Rudd on 04-21-2024 MCV (RBC) [Entitic vol] 83.6 fL 80-94 [facility] Mean corpuscular hemoglobin (MCH) determinationOrdered By: Mitch Mcnamaraok on 04-21-2024 MCH (RBC) [Entitic mass] 28.2 pg 27.0-32.0 [facility] Mean corpuscular hemoglobin concentration (MCHC) determinationOrdered By: Mitch Mcnamaraok on 04-21-2024 MCHC (RBC) [Mass/Vol] 33.7 g/dL 32-36 [facility] Mean platelet volume determi nationOrdered By: Mitch Rudd on 04-21-2024 Platelet mean volume (Bld) [Entitic vol] 10.0 fL 6.2-12.0 [facility] Microalbumin,Random Urineon 04-21-2024 MICROALBUMIN,UR 26.4 mg/L Normal NO RANGE EST. [facility] Comment on above: Performed By: #### L 100.0100, L501.5200, L500.2500, L501.2300 #### [facility] [address] [facility], [address] Monocyte percentageOrdered B y: Mitch Mcnamaraok on 04-21-2024 Monocytes/100 WBC (Bld) 7.9 % 0-10 [facility] Neutrophil percentageOrdered By: Mitch Mcnamaraok on 04-21-2024 Neutrophils/100 WBC (Bld) 58.9 % 47-70 [facility] Nucleated red blood cell per centageOrdered By: Mitch Mcnamaraok on 04-21-2024 Nucleated RBC/100 WBC (Bld) [Ratio] 0 % 0-5 [facility] Platelet countOrdered By: Juice Rudd on 04-21-2024 Platelets (Bld) [#/Vol] 291 10*3/uL 150-450 [facility] Potassium measurementOrdered By: Mitch Rudd on 04-21-2024 Potassium [Moles/Vol] 4.2 mmol/L Normal 3.5-5.1 [facility] Comment on above: Performed By: #### L 100.0100, L501.5200, L500.2500, L501.2300 #### [facility] [address] [place], [address] RBC Auto (Bld) [#/Vol]Ordere d By: Mitch Tobin on 04-21-2024 RBC (Bld) [#/Vol] 5.78 10*6/uL 4.6-6.2 [facility] Random urine microalbumin me asurementOrdered By: Mitch Rudd on 04-21-2024 Urine Random Microalbumin 26.4 mg/L NO RANGE EST. [facility] Serum anion gap measurementO rdered By: Mitch Rudd on 04-21-2024 Anion gap [Moles/Vol] 6 mmol/L 5-15 [facility] Serum globulin measurementOr dered By: Mitch Rudd on 04-21-2024 Globulin (S) [Mass/Vol] 3.9 g/dL Normal 2.2-4.2 [facility] Comment on above: Performed By: #### L 100.0100, L501.5200, L500.2500, L501.2300 #### [facility] [address] [place], [address] Serum or plasma alanine ansari otransferase (ALT) measurementOrdered By: Mitch Rudd on 04-21-2024 ALT [Catalytic activity/Vol] 36 U/L Normal 16-61 [facility] Comment on above: Performed By: #### L 100.0100, L501.5200, L500.2500, L501.2300 #### [facility] [address] [place], [address] Serum or plasma albumin claudia urement (mass/volume)Ordered By: Mitch Rudd on 04-21-2024 Albumin [Mass/Vol] 3.9 g/dL Normal 3.2-5.0 [facility] Comment on above: Performed By: #### L 100.0100, L501.5200, L500.2500, L501.2300 #### [facility] [address] [place], [address] Serum or plasma alkaline donnell sphatase measurementOrdered By: Mitch Mcnamaraok on 04-21-2024 ALP [Catalytic activity/Vol] 70 U/L 45-117 [facility] Serum or plasma calcium claudia urement (mass/volume)Ordered By: Mitch Rudd on 04-21-2024 Calcium [Mass/Vol] 9.1 mg/dL 8.5-10.1 [facility] Serum or plasma cholesterol measurement (mass/volume)Ordered By: Mitch Rudd on 04-21-2024 Cholesterol [Mass/Vol] 141 mg/dL Normal 200 [facility] Comment on above: <200 mg/dL Desirable 200-240 mg/dL Borderline >240 mg/dL High Risk Result Comment: <200 mg/dL Desirable 200-240 mg/dL Borderline >240 mg/dL High Risk Performed By: #### L 100.0100, L501.5200, L500.2500, L501.2300 #### [facility] [address] [place], [place], [id number] ([phone]) Serum or plasma creatinine m easurement (mass/volume)Ordered By: Mitch Tobin on 04-21-2024 Creatinine [Mass/Vol] 0.94 mg/dL Normal 0.70-1.30 [facility] Comment on above: The validity of the calculated GFR & GFRAA in patients over 70 years has not been determined. Clinical correlation is essential. Result Comment: The validity of the calculated GFR GFRAA in patients over 70 years has not been determined. Clinical correlation is essential. Performed By: #### L 100.0100, L501.5200, L500.2500, L501.2300 #### [facility] [address] [place], [address] Serum or plasma urea nitroge n measurement (mass/volume)Ordered By: Mitch Rudd on 04-21-2024 Urea nitrogen [Mass/Vol] 15 mg/dL Normal 7-18 [facility] Comment on above: Performed By: #### L 100.0100, L501.5200, L500.2500, L501.2300 #### [facility] [address] [place], [address] Sodium levelOrdered By: Mitch Rudd on 04-21-2024 Sodium [Moles/Vol] 138 mmol/L Normal 136-145 [facility] Comment on above: Performed By: #### L 100.0100, L501.5200, L500.2500, L501.2300 #### [facility] [address] [place], [address] TSH QnOrdered By: Mitch villagran n 04-21-2024 Thyroid Stimulating Hormone (TSH) 0.887 uIU/mL 0.358-3.740 [facility] Thyroid Stim Hormone (TSH)on 04-21-2024 TSH 0.887 uIU/mL Normal 0.358-3.740 [facility] Comment on above: Performed By: #### L 100.0100, L501.5200, L500.2500, L501.2300 #### [facility] [address] [place], [place], [id number] Total proteinOrdered By: Mitch Rudd on 04-21-2024 Protein [Mass/Vol] 7.8 g/dL 6.4-8.2 [facility] Triglycerides measurementOrd ered By: Mitch Rudd on 04-21-2024 Triglyceride [Mass/Vol] 117 mg/dL Normal [facility] Comment on above: The drugs N-Acetylcy steine and Metamizole may falsely depress this assay.Serum Triglycerides Reference Interval Normal <150 mg/dL Borderline high 150 - 199 mg/dL High 200 - 499 mg/dL Very High > or = 500 mg/dL Result Comment: The drugs N-Acetylcysteine and Metamizole may falsely depress this assay. Serum Triglycerides Reference Interval Normal <150 mg/dL Borderline high 150 - 199 mg/dL High 200 - 499 mg/dL Very High > or = 500 mg/dL Performed By: #### L 100.0100, L501.5200, L500.2500, L501.2300 #### [facility] [address] [place], [place], [id number] Very low density lipoprotein (VLDL) cholesterol measurementOrdered By: Mitch Rudd on 04-21-2024 VLDL Cholesterol 23 mg/dL 5-40 [facility] White blood cell (WBC) count Ordered By: Mitch Rudd on 04-21-2024 WBC (Bld) [#/Vol] 7.0 10*3/uL 4.4-11.0 [facility] CBC W/Diff, Automatedon 03-14 PATH REV Reviewed Normal [facility] Comment on above: Result Comment: Poly cythemia Clinical correlation necessary. Chirag Abernathy M.D. 03/31/24 Polycythemia Clinical correlation necessary. Chirag Abernathy M.D. 03/31/24 AMENDED REPORT 03/31/24 1410 PATH REV previously reported as: Ariane roth Performed By: #### L 100.0100, L501.5200, L500.2500, L501.2300 #### [facility] [address] [facility], [address] 12 Lead EKGon 03-30-2024 12 Lead EKG [facility] Cardiovascular Services [address] [place] [address] 12 Lead EKG 03/30/24 1300 MR#: [id number] Acct: [id number] Name: EVAN MORENO Rep #: [id number] : 1970 53 From: Jose Ramesh MD Attending Dr: Status: DEP ER Ordering Dr: Paulino Blair MD Date: 03/30/24 Location: ED Sex: M C Admitted: Test Reason : CP Blood Pressure : */* mmHG Vent. Rate : 62 BPM Atrial Rate : 62 BPM P-R Int : 98 ms QRS Dur : 82 ms QT Int : 438 ms P-R-T Axes : 37 28 8 degrees QTcB Int : 444 ms Sinus rhythm with short WV T wave abnormality, consider lateral ischemia Abnormal ECG Confirmed by JOSE RAMESH MD ([id number]), state editor GLADYS WILSON ([id number]) on 03/31/2024 9:46:18 AM Referred By: CHADWICK Confirmed By: JOSE RAMESH MD 03/31/24 0946 Date Jose Ramesh MD CC: Dr. Paulino Blair MD; Dr. Mitch Rudd MD Signed [facility] 12 Lead EKG [facility] Cardiovascular Services [address] [place] [address] 12 Lead EKG 03/30/24 1209 MR#: [id number] Acct: [id number] Name: EVAN MORENO Rep #: [id number] : 1970 53 From: Jose Ramesh MD Attending Dr: Status: DEP ER Ordering Dr: Paulino Blair MD Date: 03/30/24 Location: ED Sex: M C Admitted: Test Reason : CP Blood Pressure : */* mmHG Vent. Rate : 78 BPM Atrial Rate : 78 BPM P-R Int : 104 ms QRS Dur : 86 ms QT Int : 382 ms P-R-T Axes : 29 41 -11 degrees QTcB Int : 435 ms Sinus rhythm with short WV T wave abnormality, consider inferior ischemia Abnormal ECG Confirmed by JOSE RAMESH MD ([id number]), state editor GLADYS WILSON ([id number]) on 03/31/2024 9:45:52 AM Referred By: CHADWICK Confirmed By: JOSE RAMESH MD 03/31/24 0945 Date Jose Ramesh MD CC: Dr. Paulino Blair MD; Dr. Mitch Rudd MD Signed [facility] Absolute neutrophil countOrd ered By: Paulino Blair on 03-30-2024 Neutrophils (Bld) [#/Vol] 6.8 10*3/uL 2.0-7.7 [facility] Basic Metabolic Profile (BMP )on 03-30-2024 BUN/CRE 13.4 RATIO Normal 03-02 [facility] Comment on above: Order Comment: 1Y Performed By: #### L 100.0100, L501.5200, L500.2500, L501.2300 #### [facility] [address] [place], [address] CA,Total 9.9 mg/dL Normal 8.5-10.1 [facility] Comment on above: Order Comment: 1Y Performed By: #### L 100.0100, L501.5200, L500.2500, L501.2300 #### [facility] [address] [place], [address] Chloride [Moles/Vol] 97 mmol/L Low 98-107 [facility] Comment on above: Order Comment: 1Y Performed By: #### L 100.0100, L501.5200, L500.2500, L501.2300 #### [facility] [address] [place], [address] CO2 [Moles/Vol] 27.0 mmol/L Normal 21.0-32.0 [facility] Comment on above: Order Comment: 1Y Performed By: #### L 100.0100, L501.5200, L500.2500, L501.2300 #### [facility] [address] [place], [address] Creatinine [Mass/Vol] 1.34 mg/dL High 0.70-1.30 [facility] Comment on above: Order Comment: 1Y Result Comment: The validity of the calculated GFR GFRAA in patients over 70 years has not been determined. Clinical correlation is essential. Performed By: #### L 100.0100, L501.5200, L500.2500, L501.2300 #### [facility] [address] [place], [address] ECRCL 73.24 ml/min Normal [facility] Comment on above: Order Comment: 1Y Performed By: #### L 100.0100, L501.5200, L500.2500, L501.2300 #### [facility] [address] [place], [address] EST GFR - AA 72 mL/min Normal >60 [facility] Comment on above: Order Comment: 1Y Result Comment: Afri can Angolan GFR Calc Performed By: #### L 100.0100, L501.5200, L500.2500, L501.2300 #### [facility] [address] [place], [address] GAP 10 Normal 5-15 [facility] Comment on above: Order Comment: 1Y Performed By: #### L 100.0100, L501.5200, L500.2500, L501.2300 #### [facility] [address] [place], [address] GFR/1.73 sq M.predicted among non-blacks MDRD (S/P/Bld) [Vol rate/Area] 59 mL/min/{1.73_m2} Low >60 [facility] Comment on above: Order Comment: 1Y Result Comment: Non- GFR Calc Performed By: #### L 100.0100, L501.5200, L500.2500, L501.2300 #### [facility] [address] [place], [address] Glucose [Mass/Vol] 203 mg/dL High 74-106 [facility] Comment on above: Order Comment: 1Y Result Comment: Gluc ose result greater than or equal to 200 mg/dL suggests DIABETES MELLITUS per A.D.A. criteria. Performed By: #### L 100.0100, L501.5200, L500.2500, L501.2300 #### [facility] [address] [place], [address] Potassium [Moles/Vol] 4.2 mmol/L Normal 3.5-5.1 [facility] Comment on above: Order Comment: 1Y Performed By: #### L 100.0100, L501.5200, L500.2500, L501.2300 #### [facility] [address] [place], [address] Sodium [Moles/Vol] 134 mmol/L Low 136-145 [facility] Comment on above: Order Comment: 1Y Performed By: #### L 100.0100, L501.5200, L500.2500, L501.2300 #### [facility] [address] [place], [address] Urea nitrogen [Mass/Vol] 18 mg/dL Normal 7-18 [facility] Comment on above: Order Comment: 1Y Performed By: #### L 100.0100, L501.5200, L500.2500, L501.2300 #### [facility] [address] [place], [address] Basophil percentageOrdered B y: Paulino Blair on 03-30-2024 Basophils/100 WBC (Bld) 0.9 % 0-1 [facility] Blood urea nitrogen (BUN)/cr eatinine ratioOrdered By: Paulino Blair on 03-30-2024 Urea nitrogen/Creatinine [Mass ratio] 13.4 mg/mg 10-20 [facility] Carbon dioxide measurementOr dered By: Paulino Blair on 03-30-2024 CO2 [Moles/Vol] 27.0 mmol/L 21.0-32.0 [facility] Chest 1 View (Portable)on Chest 1 View (Portable) [facility] Imaging Services [address] [place], [place] [id number] Chest 1 View (Portable) MR#: [id number] Acct: [id number] Name: EVAN MORENO Rep #: [id number] : 1970 M 53 From: Jim diego DO PCP: Dr. Mitch Rudd MD Status: REG ER Study: Chest 1 View (Portable) Date of Exam: 03/30/24 Exam# [id number] Ordering Dr: [place] [id number] EXAM: XR CHEST, 1 VIEW CLINICAL INDICATION: chest pain TECHNIQUE: Frontal view of the chest. COMPARISON: 03/26/2024 FINDINGS: LUNGS AND PLEURAL SPACES: No significant abnormality. No consolidation or edema. No pneumothorax. No effusion. HEART: No significant abnormality. Cardiac silhouette not enlarged. MEDIASTINUM: Central airways and mediastinal contour are unremarkable. BONES/JOINTS: No significant abnormality. No acute fracture. SOFT TISSUES: No significant abnormality. RAD/Chest 1 View (Portable) IMPRESSION: No radiographic evidence of acute cardiopulmonary disease. Electronically Signed: Jim Hodge DO at 12:36 EST , CC: Dr. Paulino Blair MD; Dr. Mitch Rudd MD Secret Code Expert: Signed Normal [facility] Chloride measurementOrdered By: Paulino Blair on 03-30-2024 Chloride [Moles/Vol] 97 mmol/L Low 98-107 [facility] Emergency Department Summary on 03-30-2024 Emergency Department Summary [facility] Medical Records Department [address] [place] [address] Emergency Department Summary 03/30/24 MR#: [id number] Acct: [id number] Name: EVAN MORENO Rep #: [id number] : 1970 53 From: Paulino Blair MD PCP: Dr. Mitch Rudd MD Status:REG ER Location: ED HPI History of Present Illness Chief Complaint: Chest Pain Informant: patient Onset/Context/Timing Onset: Today and Hours Activity at onset: gradual Timing: Continuous Quality: Positive for Dull and Pain Location: Left Chest Current Severity: Mild Maximum Severity: Mild Worsened By: Nothing Relieved By: Nothing Associated Symptoms: Negative for Nausea, Vomiting, Diaphoresis, Dyspnea, Cough, Fever, Lightheadedness, Acid Reflux or Palpitations Narrative Narrative: 53-year-old male history diabetes and hypertension. Recently just had an admission and stress test on 1114, 3 days ago, that was negative. He had ejection fraction of around 62%. Patient states he walked around his neighborhood that he had no exertional chest pain or dyspnea. He said he was at home he has multiple children he said he has a problem with anger at times and he got upset and developed this left-sided chest discomfort. No radiation of the pain. No shortness of breath. No nausea. Prior Similar Symptoms: Yes Recent Illness/Hospitalization : Yes CVD Risk Factors: Positive for Hypertension and Diabetes PE Risk Factors: Negative for Recent Travel/Surgery, Prior DVT or PE, Cancer or OCP + Smoking + >/=35 TAD Risk Factors: Negative for Marfan's Syndrome PFSH PFSH Medical History Polycythemia Chronic viral hepatitis B with delta-agent Anxiety HLD (hyperlipidemia) Elevated LFTs Type 2 diabetes mellitus Fatty liver HTN (hypertension) Home Medications ???Medication ???Instructions ???Recorded ???Last Taken ???Type amlodipine 10 mg tablet 10 mg PO DAILY #90 tabs 03/27/24 Unknown Rx aspirin 81 mg capsule 81 mg PO DAILY #9 caps 03/27/24 Unknown Rx hydrochlorothiazide 25 mg tablet 25 mg PO DAILY #90 tabs 03/27/24 Unknown Rx lisinopril 20 mg tablet 20 mg PO DAILY #90 tabs 03/27/24 Unknown Rx Allergy/AdvReac Type Severity Reaction Status Date / Time hydralazine AdvReac Mild Vomiting Verified 03/30/24 12:01 Social History Smoking Status: Former smoker alcohol intake: current substance use type: does not use ROS ROS ED ROS Narrative Chest pain. Constitutional Constitutional ED: Denies chills or fever(s) Eyes Eyes: Reports none ENT ENT ED: Denies ear pain Cardiovascular Cardiovascular: Reports as per HPI and chest pain; Denies palpitations or racing heartbeat Respiratory/Chest Respiratory/Chest: Denies cough or dyspnea Gastrointestinal Gastrointestinal: Denies abdominal pain Genitourinary Genitourinary ED: Denies dysuria or hematuria Musculoskeletal Musculoskeletal: Denies arthralgias or back pain Integumentary Denies abscess Neurologic Neurologic: Denies headache(s) Psychiatric Psychiatric: Denies anxiety Endocrine Endocrinology: Denies cold intolerance Hematologic/Lymphatic Hematologic/Lymphatic: Denies easy bleeding Allergic/Immunologic Allergic/Immunologic ED: Denies mouth swelling, tongue swelling or urticaria EXAM Physical Exam Narrative Exam Narrative: Well-appearing 53-year-old male. Vital signs stable afebrile. Pulse ox 99% on room air no hypoxia. H EENT exam unremarkable. Neck nontender no JVD. Lungs clear to auscultation bilaterally. Heart regular rate and rhythm rate about 80 no murmur. Chest wall and ribs nontender. No ecchymosis or bruising. No reproducible pain. Abdomen is soft and nontender. No peritoneal signs. Patient is moving all 4 extremities. They are nontender. There is no edema or cords. Equal and symmetrical green tire inspector strength. Dorsi plantarflexion intact. Equal symmetrical radial pulses. Back is nontender. Neurologically is awake alert no focal motor deficits. Answering questions following commands. Const Vital Signs: 03/30/24 12:00 03/30/24 12:03 03/30/24 12:53 Temperature 98 F Temperature Source Oral Pulse Rate 83 59 L Respiratory Rate 18 14 Respiratory Effort Normal Non-Labored Blood Pressure 122/71 H 141/89 H Blood Pressure Mean 88 106 Pulse Ox 99 98 Oxygen Delivery Method Room Air Room Air 03/30/24 14:38 Temperature 98 F Temperature Source Pulse Rate 60 Respiratory Rate 18 Respiratory Effort Blood Pressure 136/70 H Blood Pressure Mean 92 Pulse Ox 99 Oxygen Delivery Method Positive well nourished and well developed; Negative for cachectic, contractures or unkempt General Appearance ED: well developed and NAD; Negative for unkempt, cachectic, cont (more content not included)... Normal [facility] Eosinophil percentageOrdered By: Paulino Blair on 03-30-2024 Eosinophils/100 WBC (Bld) 0.9 % 0-5 [facility] Erythrocyte distribution wid th ratioOrdered By: Paulino Blair on 03-30-2024 Erythrocyte distribution width (RBC) [Ratio] 11.5 % Low 11.6-14.6 [facility] Erythrocyte distribution wid th standard deviationOrdered By: Paulino Blair on 03-30-2024 Erythrocyte distribution width (RBC) [Entitic vol] 34.8 fL Low 35.1-43.9 [facility] Estimated glomerular filtrat ion rate (GFR) AmericanOrdered By: Paulino Blair on 03-30-2024 Estimated GFR (MDRD) Amer 72 mL/min >60 [facility] Comment on above: GFR Calc Estimation of creatinine martinez aranceOrdered By: Paulino Blair on 03-30-2024 Estimated Creatinine Clearance Calc 73.24 ml/min [facility] Glomerular filtration rate ( GFR) estimationOrdered By: Paulino Blair on 03-30-2024 Estimated GFR (MDRD) Non-Af Amer 59 mL/min Low >60 [facility] Comment on above: Non- GFR Calc Glucose measurementOrdered B y: Paulino Blair on 03-30-2024 Glucose [Mass/Vol] 203 mg/dL High 74-106 [facility] Comment on above: Glucose result great er than or equal to 200 mg/dLsuggests DIABETES MELLITUS per A.D.A. criteria. Hematocrit Auto (Bld) [Volum e fraction]Ordered By: Paulino Blair on 03-30-2024 Hematocrit (Bld) [Volume fraction] 54.5 % High 40-54 [facility] Hemoglobin measurementOrdere d By: Paulino Blair on 03-30-2024 Hemoglobin (Bld) [Mass/Vol] 18.6 g/dL High 13.0-16.5 [facility] Comment on above: CRITICAL VALUE CHIRINOS D TO CHACORTA LIMAN105/30/23 1221 Rosa Nick.RESULTS READ BACK BY SAME. Immature granulocytes/100 WB C Auto (Bld)Ordered By: Paulino Blair on 03-30-2024 Immature granulocytes/100 WBC (Bld) 0.300 % 0.0-0.9 [facility] Comment on above: IG% - Immature Granu locytes (promyelocytes, myelocytes and metamyelocytes) > 1% indicates that a LEFT SHIFT is Present. L501.4020on 03-30-2024 TROPONIN-I HS 26 pg/mL Normal 3.0-78.0 [facility] Comment on above: Result Comment: Delgado guerra Note: New Test Units and Gender Specific Reference Ranges. For more information see Policy Stat Procedure [place] High Sensitivity Troponin (TNIH) and attachments. Performed By: #### L 100.0100, L501.5200, L500.2500, L501.2300 #### [facility] [address] [place], [address] L501.5425on 03-30-2024 TROPONIN-I HS 9 pg/mL Normal 3.0-78.0 [facility] Comment on above: Order Comment: 1Y Result Comment: Delgado guerra Note: New Test Units and Gender Specific Reference Ranges. For more information see Policy Stat Procedure [place] High Sensitivity Troponin (TNIH) and attachments. Performed By: #### L 100.0100, L501.5200, L500.2500, L501.2300 #### [facility] [address] [place], [address] Lymphocytes Auto (Unsp spec) [#/Vol]Ordered By: Paulino Blair on 03-30-2024 Lymphocytes (Bld) [#/Vol] 2.38 10*3/uL 0.83-4.51 [facility] Lymphocytes/100 WBC Auto (Un sp spec)Ordered By: Paulino Blair on 03-30-2024 Lymphocytes/100 WBC (Bld) 23.8 % 19-41 [facility] MCV (mean corpuscular volume ) determinationOrdered By: Paulino Blair on 03-30-2024 MCV (RBC) [Entitic vol] 82.2 fL 80-94 [facility] Mean corpuscular hemoglobin (MCH) determinationOrdered By: Paulino Blair on 03-30-2024 MCH (RBC) [Entitic mass] 28.1 pg 27.0-32.0 [facility] Mean corpuscular hemoglobin concentration (MCHC) determinationOrdered By: Paulino Blair on 03-30-2024 MCHC (RBC) [Mass/Vol] 34.1 g/dL 32-36 [facility] Mean platelet volume determi nationOrdered By: Paulino Blair on 03-30-2024 Platelet mean volume (Bld) [Entitic vol] 10.0 fL 6.2-12.0 [facility] Monocyte percentageOrdered B y: Paulino Blair on 03-30-2024 Monocytes/100 WBC (Bld) 6.1 % 0-10 [facility] Neutrophil percentageOrdered By: Paulino Blair on 03-30-2024 Neutrophils/100 WBC (Bld) 68.0 % 47-70 [facility] Nucleated red blood cell per centageOrdered By: Paulino Blair on 03-30-2024 Nucleated RBC/100 WBC (Bld) [Ratio] 0 % 0-5 [facility] Pathologist review Riccardo (Unsp spec) [Interp]Ordered By: Paulino Blair on 03-30-2024 Differential Pathologist's Review Reviewed [facility] Comment on above: PolycythemiaClinical correlation necessary.Chirag Abernathy M.D. 03/31/24Previous reported result: September Edited by: MARCIAL on 03/31/24:1410PolycythemiaClinical correlation necessary.Chirag Abernathy M.D. 03/31/24 AMENDED REPORT 03/31/24 1410 PATH REV previously reported as: September Platelet countOrdered By: Humphrey Blair on 03-30-2024 Platelets (Bld) [#/Vol] 390 10*3/uL 150-450 [facility] Potassium measurementOrdered By: Paulino Blair on 03-30-2024 Potassium [Moles/Vol] 4.2 mmol/L 3.5-5.1 [facility] RBC Auto (Bld) [#/Vol]Ordere d By: Paulino Blair on 03-30-2024 RBC (Bld) [#/Vol] 6.63 10*6/uL High 4.6-6.2 [facility] Serum anion gap measurementO rdered By: Paulino Blair on 03-30-2024 Anion gap [Moles/Vol] 10 mmol/L 5-15 [facility] Serum or plasma calcium claudia urement (mass/volume)Ordered By: Paulino Blair on 03-30-2024 Calcium [Mass/Vol] 9.9 mg/dL 8.5-10.1 [facility] Serum or plasma creatinine m easurement (mass/volume)Ordered By: Paulino Blair on 03-30-2024 Creatinine [Mass/Vol] 1.34 mg/dL High 0.70-1.30 [facility] Comment on above: The validity of the calculated GFR & GFRAA in patients over 70 years has not been determined. Clinical correlation is essential. Serum or plasma urea nitroge n measurement (mass/volume)Ordered By: Paulino Blair on 03-30-2024 Urea nitrogen [Mass/Vol] 18 mg/dL 7-18 [facility] Sodium levelOrdered By: Paulino Blair on 03-30-2024 Sodium [Moles/Vol] 134 mmol/L Low 136-145 [facility] Troponin IOrdered By: Paulino hunter on 03-30-2024 Troponin I High Sensitivity 26 pg/mL 3.0-78.0 [facility] Comment on above: Please Note: New [place] t Units and Gender Specific Reference Ranges. For more information see Policy Stat Procedure [place] High Sensitivity Troponin (TNIH) and attachments. White blood cell (WBC) count Ordered By: Paulino Blair on 03-30-2024 WBC (Bld) [#/Vol] 10.0 10*3/uL 4.4-11.0 [facility] 12 Lead EKGon 03-27-2024 12 Lead EKG [facility] Cardiovascular Services [address] [place] [address] 12 Lead EKG 03/27/24 0504 MR#: [id number] Acct: [id number] Name: EVAN MORENO Rep #: [id number] : 1970 53 From: Terrance Patel MD Attending Dr: Dr. Bird Claudio MD Status: ADM DARRIAN Ordering Dr: Bird Claudio MD Date: 03/27/24 Location: [facility] Sex: M C Admitted: 03/26/24 Test Reason : AM EKG Blood Pressure : */* mmHG Vent. Rate : 63 BPM Atrial Rate : 63 BPM P-R Int : 136 ms QRS Dur : 76 ms QT Int : 400 ms P-R-T Axes : 60 56 12 degrees QTcB Int : 409 ms Normal sinus rhythm with sinus arrhythmia Nonspecific T wave abnormality Abnormal ECG When compared with ECG of 26-Mar-2024 13:39, MANUAL COMPARISON REQUIRED DATA IS UNCONFIRMED Confirmed by AMANDA RED, MIK ([id number]), state editor JAELYN DIAZ ([id number]) on 03/27/2024 1:52:32 PM Referred By: SHANON Confirmed By: MIK PATEL MD 03/27/24 1352 Date Terrance Patel MD CC: Dr. Bird Claudio MD; Dr. Mitch Rudd MD Signed Normal [facility] Absolute neutrophil countOrd ered By: Bird Claudio on 03-27-2024 Neutrophils (Bld) [#/Vol] 4.4 10*3/uL 2.0-7.7 [facility] Basic Metabolic Profile (BMP )on 03-27-2024 BUN/CRE 14.4 RATIO Normal 10-20 [facility] Comment on above: Performed By: #### L 100.0100, L501.5200, L500.2500, L501.2300 #### [facility] [address] [place], [address] CA,Total 9.4 mg/dL Normal 8.5-10.1 [facility] Comment on above: Performed By: #### L 100.0100, L501.5200, L500.2500, L501.2300 #### [facility] [address] [place], [address] Chloride [Moles/Vol] 106 mmol/L Normal 98-107 [facility] Comment on above: Performed By: #### L 100.0100, L501.5200, L500.2500, L501.2300 #### [facility] [address] [place], [address] CO2 [Moles/Vol] 25.0 mmol/L Normal 21.0-32.0 [facility] Comment on above: Performed By: #### L 100.0100, L501.5200, L500.2500, L501.2300 #### [facility] [address] [place], [address] Creatinine [Mass/Vol] 0.90 mg/dL Normal 0.70-1.30 [facility] Comment on above: Result Comment: The validity of the calculated GFR GFRAA in patients over 70 years has not been determined. Clinical correlation is essential. Performed By: #### L 100.0100, L501.5200, L500.2500, L501.2300 #### [facility] [address] [place], [address] ECRCL 109.76 ml/min Normal [facility] Comment on above: Performed By: #### L 100.0100, L501.5200, L500.2500, L501.2300 #### [facility] [address] [place], [address] EST GFR - AA 114 mL/min Normal >60 [facility] Comment on above: Result Comment: Afri can Angolan GFR Calc Performed By: #### L 100.0100, L501.5200, L500.2500, L501.2300 #### [facility] [address] [place], [address] GAP 5 Normal 5-15 [facility] Comment on above: Performed By: #### L 100.0100, L501.5200, L500.2500, L501.2300 #### [facility] [address] [place], [address] GFR/1.73 sq M.predicted among non-blacks MDRD (S/P/Bld) [Vol rate/Area] 94 mL/min/{1.73_m2} Normal >60 [facility] Comment on above: Result Comment: Non- GFR Calc Performed By: #### L 100.0100, L501.5200, L500.2500, L501.2300 #### [facility] [address] [place], [address] Glucose [Mass/Vol] 131 mg/dL High 74-106 [facility] Comment on above: Result Comment: Fast ing Glucose result greater than or equal to 126 mg/dL suggests DIABETES MELLITUS per A.D.A. criteria. Performed By: #### L 100.0100, L501.5200, L500.2500, L501.2300 #### [facility] [address] [place], [address] Potassium [Moles/Vol] 4.0 mmol/L Normal 3.5-5.1 [facility] Comment on above: Performed By: #### L 100.0100, L501.5200, L500.2500, L501.2300 #### [facility] [address] [place], [address] Sodium [Moles/Vol] 136 mmol/L Normal 136-145 [facility] Comment on above: Performed By: #### L 100.0100, L501.5200, L500.2500, L501.2300 #### [facility] [address] [place], [address] Urea nitrogen [Mass/Vol] 13 mg/dL Normal 7-18 [facility] Comment on above: Performed By: #### L 100.0100, L501.5200, L500.2500, L501.2300 #### [facility] [address] [place], [address] Basophil percentageOrdered B y: Bird Claudio on 03-27-2024 Basophils/100 WBC (Bld) 0.8 % 0-1 [facility] Blood urea nitrogen (BUN)/cr eatinine ratioOrdered By: Bird Claudio on 03-27-2024 Urea nitrogen/Creatinine [Mass ratio] 14.4 mg/mg 10-20 [facility] CBC W/Diff, Automatedon 03-14 Absolute Lymph 2.60 X10 3/uL Normal 0.83-4.51 [facility] Comment on above: Performed By: #### L 100.0100, L501.5200, L500.2500, L501.2300 #### [facility] [address] [place], [address] Absolute Neut 4.4 X10 3/uL Normal 2.0-7.7 [facility] Comment on above: Performed By: #### L 100.0100, L501.5200, L500.2500, L501.2300 #### [facility] [address] [place], [address] Basophils/100 WBC (Bld) 0.8 % Normal 0-1 [facility] Comment on above: Performed By: #### L 100.0100, L501.5200, L500.2500, L501.2300 #### [facility] [address] [place], [address] Eosinophils/100 WBC (Bld) 0.7 % Normal 0-5 [facility] Comment on above: Performed By: #### L 100.0100, L501.5200, L500.2500, L501.2300 #### [facility] [address] [place], [address] Erythrocyte distribution width (RBC) [Ratio] 11.6 % Normal 11.6-14.6 [facility] Comment on above: Performed By: #### L 100.0100, L501.5200, L500.2500, L501.2300 #### [facility] [address] [place], [address] Hematocrit (Bld) [Volume fraction] 52.7 % Normal 40-54 [facility] Comment on above: Performed By: #### L 100.0100, L501.5200, L500.2500, L501.2300 #### [facility] [address] [place], [address] Hemoglobin (Bld) [Mass/Vol] 17.9 g/dL High 13.0-16.5 [facility] Comment on above: Performed By: #### L 100.0100, L501.5200, L500.2500, L501.2300 #### [facility] [address] [place], [address] IG% 0.100 Normal 0.0-0.9 [facility] Comment on above: Result Comment: IG% - Immature Granulocytes (promyelocytes, myelocytes and metamyelocytes) > 1% indicates that a LEFT SHIFT is Present. Performed By: #### L 100.0100, L501.5200, L500.2500, L501.2300 #### [facility] [address] [place], [address] Lymphocytes/100 WBC (Bld) 34.4 % Normal 19-41 [facility] Comment on above: Performed By: #### L 100.0100, L501.5200, L500.2500, L501.2300 #### [facility] [address] [place], [address] MCH (RBC) [Entitic mass] 28.3 pg Normal 27.0-32.0 [facility] Comment on above: Performed By: #### L 100.0100, L501.5200, L500.2500, L501.2300 #### [facility] [address] [place], [address] MCHC (RBC) [Mass/Vol] 34.0 g/dL Normal 32-36 [facility] Comment on above: Performed By: #### L 100.0100, L501.5200, L500.2500, L501.2300 #### [facility] [address] [place], [address] MCV (RBC) [Entitic vol] 83.3 fL Normal 80-94 [facility] Comment on above: Performed By: #### L 100.0100, L501.5200, L500.2500, L501.2300 #### [facility] [address] [place], [address] Monocytes/100 WBC (Bld) 5.2 % Normal 0-10 [facility] Comment on above: Performed By: #### L 100.0100, L501.5200, L500.2500, L501.2300 #### [facility] [address] [place], [address] Neutrophils/100 WBC (Bld) 58.8 % Normal 47-70 [facility] Comment on above: Performed By: #### L 100.0100, L501.5200, L500.2500, L501.2300 #### [facility] [address] [place], [address] Nucleated RBC (Bld) [#/Vol] 0 10*3/uL Normal 0-5 [facility] Comment on above: Performed By: #### L 100.0100, L501.5200, L500.2500, L501.2300 #### [facility] [address] [place], [address] Platelet mean volume (Bld) [Entitic vol] 10.0 fL Normal 6.2-12.0 [facility] Comment on above: Performed By: #### L 100.0100, L501.5200, L500.2500, L501.2300 #### [facility] [address] [place], [address] Platelets (Bld) [#/Vol] 295 10*3/uL Normal 150-450 [facility] Comment on above: Performed By: #### L 100.0100, L501.5200, L500.2500, L501.2300 #### [facility] [address] [place], [address] RBC (Bld) [#/Vol] 6.33 10*6/uL High 4.6-6.2 [facility] Comment on above: Performed By: #### L 100.0100, L501.5200, L500.2500, L501.2300 #### [facility] [address] [place], [address] RDW SD 34.5 fl Low 35.1-43.9 [facility] Comment on above: Performed By: #### L 100.0100, L501.5200, L500.2500, L501.2300 #### [facility] [address] [place], [address] WBC (Bld) [#/Vol] 7.6 10*3/uL Normal 4.4-11.0 [facility] Comment on above: Performed By: #### L 100.0100, L501.5200, L500.2500, L501.2300 #### [facility] [address] [facility] [place], [address] Carbon dioxide measurementOr dered By: Bird Claudio on 03-27-2024 CO2 [Moles/Vol] 25.0 mmol/L 21.0-32.0 [facility] Chloride measurementOrdered By: Bird Claudio on 03-27-2024 Chloride [Moles/Vol] 106 mmol/L 98-107 [facility] Eosinophil percentageOrdered By: Bird Claudio on 03-27-2024 Eosinophils/100 WBC (Bld) 0.7 % 0-5 [facility] Erythrocyte distribution wid th ratioOrdered By: Bird Claudio on 03-27-2024 Erythrocyte distribution width (RBC) [Ratio] 11.6 % 11.6-14.6 [facility] Erythrocyte distribution wid th standard deviationOrdered By: Bird Claudio on 03-27-2024 Erythrocyte distribution width (RBC) [Entitic vol] 34.5 fL Low 35.1-43.9 [facility] Estimated glomerular filtrat ion rate (GFR) AmericanOrdered By: Bird Claudio on 03-27-2024 Estimated GFR (MDRD) Amer 114 mL/min >60 [facility] Comment on above: GFR Calc Estimation of creatinine martinez aranceOrdered By: iBrd Claudio on 03-27-2024 Estimated Creatinine Clearance Calc 109.76 ml/min [facility] Glomerular filtration rate ( GFR) estimationOrdered By: Bird Claudio on 03-27-2024 Estimated GFR (MDRD) Non-Af Amer 94 mL/min >60 [facility] Comment on above: Non- GFR Calc Glucose measurementOrdered B y: Bird Claudio on 03-27-2024 Glucose [Mass/Vol] 131 mg/dL High 74-106 [facility] Comment on above: Fasting Glucose resu lt greater than or equal to 126 mg/dL suggests DIABETES MELLITUS per A.D.A. criteria. Hematocrit Auto (Bld) [Volum e fraction]Ordered By: Bird Claudio on 03-27-2024 Hematocrit (Bld) [Volume fraction] 52.7 % 40-54 [facility] Hemoglobin A1con 03-27-2024 HbA1c (Bld) [Mass fraction] 5.8 % High 3.8-5.6 [facility] Comment on above: Result Comment: Norm al < 5.7 % Prediabetic 5.7 - 6.4 % Diabetic >or= 6.5 % Please note range changes. Performed By: #### L 100.0100, L501.5200, L500.2500, L501.2300 #### [facility] [address] [place], [address] Hemoglobin A1c percentageOrd ered By: Bird Claudio on 03-27-2024 HbA1c (Bld) [Mass fraction] 5.8 % High 3.8-5.6 [facility] Comment on above: Normal < 5.7 % Predi abetic 5.7 - 6.4 % Diabetic >or= 6.5 % Please note range changes. Hemoglobin measurementOrdere d By: Bird Claudio on 03-27-2024 Hemoglobin (Bld) [Mass/Vol] 17.9 g/dL High 13.0-16.5 [facility] Immature granulocytes/100 WB C Auto (Bld)Ordered By: Bird Claudio on 03-27-2024 Immature granulocytes/100 WBC (Bld) 0.100 % 0.0-0.9 [facility] Comment on above: IG% - Immature Granu locytes (promyelocytes, myelocytes and metamyelocytes) > 1% indicates that a LEFT SHIFT is Present. Lymphocytes Auto (Unsp spec) [#/Vol]Ordered By: Bird Claudio on 03-27-2024 Lymphocytes (Bld) [#/Vol] 2.60 10*3/uL 0.83-4.51 [facility] Lymphocytes/100 WBC Auto (Un sp spec)Ordered By: Bird Claudio on 03-27-2024 Lymphocytes/100 WBC (Bld) 34.4 % 19-41 [facility] MCV (mean corpuscular volume ) determinationOrdered By: Bird Claudio on 03-27-2024 MCV (RBC) [Entitic vol] 83.3 fL 80-94 [facility] Magnesiumon 03-27-2024 Magnesium [Mass/Vol] 2.1 mg/dL Normal 1.6-2.6 [facility] Comment on above: Performed By: #### L 100.0100, L501.5200, L500.2500, L501.2300 #### [facility] [address] [place], [address] Magnesium measurementOrdered By: Bird Claudio on 03-27-2024 Magnesium [Mass/Vol] 2.1 mg/dL 1.6-2.6 [facility] Mean corpuscular hemoglobin (MCH) determinationOrdered By: Bird Claudio on 03-27-2024 MCH (RBC) [Entitic mass] 28.3 pg 27.0-32.0 [facility] Mean corpuscular hemoglobin concentration (MCHC) determinationOrdered By: Bird Claudio on 03-27-2024 MCHC (RBC) [Mass/Vol] 34.0 g/dL 32-36 [facility] Mean platelet volume determi nationOrdered By: Bird Claudio on 03-27-2024 Platelet mean volume (Bld) [Entitic vol] 10.0 fL 6.2-12.0 [facility] Monocyte percentageOrdered B y: Bird Claudio on 03-27-2024 Monocytes/100 WBC (Bld) 5.2 % 0-10 [facility] Neutrophil percentageOrdered By: Bird Claudio on 03-27-2024 Neutrophils/100 WBC (Bld) 58.8 % 47-70 [facility] Nucleated red blood cell per centageOrdered By: Bird Claudio on 03-27-2024 Nucleated RBC/100 WBC (Bld) [Ratio] 0 % 0-5 [facility] Phosphoruson 03-27-2024 Phosphate [Mass/Vol] 4.1 mg/dL Normal 2.5-4.[address] [facility] Comment on above: Performed By: #### L 100.0100, L501.5200, L500.2500, L501.2300 #### [facility] [place], [address] Phosphorus measurementOrdere d By: Bird Claudio on 03-27-2024 Phosphorus Level 4.1 mg/dL 2.5-4.9 [facility] Platelet countOrdered By: Dandre Claudio on 03-27-2024 Platelets (Bld) [#/Vol] 295 10*3/uL 150-450 [facility] Potassium measurementOrdered By: Bird Claudio on 03-27-2024 Potassium [Moles/Vol] 4.0 mmol/L 3.5-5.1 [facility] RBC Auto (Bld) [#/Vol]Ordere d By: Bird Claudio on 03-27-2024 RBC (Bld) [#/Vol] 6.33 10*6/uL High 4.6-6.2 [facility] Serum anion gap measurementO rdered By: Bird Claudio on 03-27-2024 Anion gap [Moles/Vol] 5 mmol/L 5-15 [facility] Serum or plasma calcium claudia urement (mass/volume)Ordered By: Bird Claudio on 03-27-2024 Calcium [Mass/Vol] 9.4 mg/dL 8.5-10.1 [facility] Serum or plasma creatinine m easurement (mass/volume)Ordered By: Bird Claudio on 03-27-2024 Creatinine [Mass/Vol] 0.90 mg/dL 0.70-1.30 [facility] Comment on above: The validity of the calculated GFR & GFRAA in patients over 70 years has not been determined. Clinical correlation is essential. Serum or plasma urea nitroge n measurement (mass/volume)Ordered By: Bird Claudio on 03-27-2024 Urea nitrogen [Mass/Vol] 13 mg/dL 7-18 [facility] Sodium levelOrdered By: Rene Claudio on 03-27-2024 Sodium [Moles/Vol] 136 mmol/L 136-145 [facility] Stress Reporton 03-27-2024 Stress Report [facility] Services [address] [place] [address] MR#: [id number] Acct: [id number] Name: EVAN MORENO Rep #: [id number] : 1970 53 From: Terrance Patel MD Primary Care: Dr. Mitch Rudd MD Status: ADM DARRIAN Referring Dr: Sex: M C Stress Test Report Date: 03/27/2024 Procedure: Pharmacologic stress nuclear imaging study Indications: Chest pain Consent: Per the patient Procedure: The patient underwent pharmacologic (Regadenoson) evaluation with a peak heart rate of 90 beats per minute (53%predicted maximal heart rate) and a peak blood pressure of 168/110 mmHg. The baseline ECG demonstrated normal sinus rhythm. EKG during lexiscan infusion revealed no significant ischemic changes. EKG post infusion revealed no significant ischemic changes [There were no cardiac dysrhythmias pretest, during pharmacologic infusion, or recovery]. [There was no complaint of chest discomfort during pharmacologic infusion or recovery]. The examination was discontinued secondary to completion of protocol. Impression: 1. Lexiscan stress test test is negative for Lexiscan infusion induced EKG changes of ischemia. 2. Lexiscan stress test test is negative for Lexiscan infusion induced chest pain. 3. Results of the nuclear portion of the test is as below Myocardial perfusion imaging study: Technique: The patient was injected with 11.6 millicuries of technetium 99m Cardiolite and subsequently rest SPECT Cardiolite nuclear imaging was obtained in the horizontal long, vertical long, and short axis views. The patient underwent pharmacologic [Regadenoson 0.4mg] evaluation. Please see above for details. The patient was injected with 30 millicuries of technetium 99m Cardiolite and subsequently stress SPECT Cardiolite nuclear imaging was obtained in the horizontal long, vertical long, and short axis views. A gated Cardiolite study at peak stress was obtained. Interpretation: Rest and stress SPECT Cardiolite nuclear imaging status post realignment, normalization, and attenuation correction demonstrate no evidence of significant ischemia or infarction. Gated images reveal no significant regional wall motion abnormalities. The reported LVEF is 62%. Impression: 1. There is no evidence of significant ischemia or infarction. 2. Estimated ejection fraction is 62%. This note was generated with Dragon dictation software. It may contain incorrect words, spelling, and punctuation that were not noted in checking the note before signing. 03/27/24 1115 Date Terrance Patel MD CC: Dr. Bird Claudio MD; Dr. Mitch Rudd MD; Dr. Valdo Harry, Date Dictated: 03/27/24 1111 Date Transcribed: 03/27/24 1111 Secret Code Expert: NN Signed Normal [facility] White blood cell (WBC) count Ordered By: Bird Claudio on 03-27-2024 WBC (Bld) [#/Vol] 7.6 10*3/uL 4.4-11.0 [facility] 12 Lead EKGon 03-26-2024 12 Lead EKG [facility] Cardiovascular Services [address] [place] [address] 12 Lead EKG 03/26/24 1339 MR#: [id number] Acct: [id number] Name: EVAN MORENO Rep #: [id number] : 1970 53 From: oJse Ramesh MD Attending Dr: Dr. Bird Claudio MD Status: ADM DARRIAN Ordering Dr: Bird Claudio MD Date: 03/26/24 Location: [facility] Sex: M C Admitted: 03/26/24 Test Reason : Blood Pressure : */* mmHG Vent. Rate : 52 BPM Atrial Rate : 52 BPM P-R Int : 140 ms QRS Dur : 78 ms QT Int : 424 ms P-R-T Axes : 21 31 51 degrees QTcB Int : 394 ms Sinus bradycardia Nonspecific T wave abnormality Abnormal ECG When compared with ECG of 26-Mar-2024 09:23, MANUAL COMPARISON REQUIRED DATA IS UNCONFIRMED Confirmed by DOMITILA RED, JOSE ([id number]), state editor JAELYN DIAZ ([id number]) on 03/27/2024 6:17:39 AM Referred By: CARLOS Confirmed By: JOSE RAMESH MD 03/27/24 0617 Date Jose Ramesh MD CC: Dr. Bird Claudio MD; Dr. Mitch Rudd MD Signed [facility] 12 Lead EKG [facility] Cardiovascular Services [address] [place] [address] 12 Lead EKG 03/26/24 0923 MR#: [id number] Acct: [id number] Name: EVAN MORENO Rep #: [id number] : 1970 53 From: Terrance Patel MD Attending Dr: Dr. Bird Claudio MD Status: ADM DARRIAN Ordering Dr: Valdo Harry DO Date: 03/26/24 Location: [facility] Sex: M C Admitted: 03/26/24 Test Reason : HTN/CP Blood Pressure : */* mmHG Vent. Rate : 62 BPM Atrial Rate : 62 BPM P-R Int : 128 ms QRS Dur : 76 ms QT Int : 396 ms P-R-T Axes : 35 39 42 degrees QTcB Int : 401 ms Normal sinus rhythm Normal ECG Confirmed by AMANDA RED, MIK ([id number]), state editor JAELYN DIAZ ([id number]) on 03/27/2024 1:48:01 PM Referred By: TL Confirmed By: MIK PATEL MD 03/27/24 1348 Date Terrance Patel MD CC: Dr. Bird Claudio MD; Dr. Mitch Rudd MD; Dr. Valdo Harry DO Signed [facility] Basic Metabolic Profile (BMP )on 03-26-2024 BUN/CRE 12.3 RATIO Normal - [facility] Comment on above: Order Comment: 1Y Performed By: #### L 100.0100, L501.5200, L500.2500, L501.2300 #### [facility] [address] [place], [address] CA,Total 9.6 mg/dL Normal 8.5-10.1 [facility] Comment on above: Order Comment: 1Y Performed By: #### L 100.0100, L501.5200, L500.2500, L501.2300 #### [facility] [address] [place], [address] Chloride [Moles/Vol] 105 mmol/L Normal 98-107 [facility] Comment on above: Order Comment: 1Y Performed By: #### L 100.0100, L501.5200, L500.2500, L501.2300 #### [facility] [address] [place], [address] CO2 [Moles/Vol] 25.0 mmol/L Normal 21.0-32.0 [facility] Comment on above: Order Comment: 1Y Performed By: #### L 100.0100, L501.5200, L500.2500, L501.2300 #### [facility] [address] [place], [address] Creatinine [Mass/Vol] 1.06 mg/dL Normal 0.70-1.30 [facility] Comment on above: Order Comment: 1Y Result Comment: The validity of the calculated GFR GFRAA in patients over 70 years has not been determined. Clinical correlation is essential. Performed By: #### L 100.0100, L501.5200, L500.2500, L501.2300 #### [facility] [address] [place], [address] ECRCL 83.39 ml/min Normal [facility] Comment on above: Order Comment: 1Y Performed By: #### L 100.0100, L501.5200, L500.2500, L501.2300 #### [facility] [address] [place], [address] EST GFR - AA 94 mL/min Normal >60 [facility] Comment on above: Order Comment: 1Y Result Comment: Afri can Angolan GFR Calc Performed By: #### L 100.0100, L501.5200, L500.2500, L501.2300 #### [facility] [address] [place], [address] GAP 8 Normal 5-15 [facility] Comment on above: Order Comment: 1Y Performed By: #### L 100.0100, L501.5200, L500.2500, L501.2300 #### [facility] [address] [place], [address] GFR/1.73 sq M.predicted among non-blacks MDRD (S/P/Bld) [Vol rate/Area] 78 mL/min/{1.73_m2} Normal >60 [facility] Comment on above: Order Comment: 1Y Result Comment: Non- GFR Calc Performed By: #### L 100.0100, L501.5200, L500.2500, L501.2300 #### [facility] [address] [place], [address] Glucose [Mass/Vol] 173 mg/dL High 74-106 [facility] Comment on above: Order Comment: 1Y Result Comment: Fast ing Glucose result greater than or equal to 126 mg/dL suggests DIABETES MELLITUS per A.D.A. criteria. Performed By: #### L 100.0100, L501.5200, L500.2500, L501.2300 #### [facility] [address] [place], [address] Potassium [Moles/Vol] 3.9 mmol/L Normal 3.5-5.1 [facility] Comment on above: Order Comment: 1Y Performed By: #### L 100.0100, L501.5200, L500.2500, L501.2300 #### [facility] [address] [place], [address] Sodium [Moles/Vol] 138 mmol/L Normal 136-145 [facility] Comment on above: Order Comment: 1Y Performed By: #### L 100.0100, L501.5200, L500.2500, L501.2300 #### [facility] [address] [place], [address] Urea nitrogen [Mass/Vol] 13 mg/dL Normal 7-18 [facility] Comment on above: Order Comment: 1Y Performed By: #### L 100.0100, L501.5200, L500.2500, L501.2300 #### [facility] [address] [place], [address] CBC W/Diff, Automatedon 11-2023 Absolute Lymph 1.78 X10 3/uL Normal 0.83-4.51 [facility] Comment on above: Performed By: #### L 100.0100, L501.5200, L500.2500, L501.2300 #### [facility] [address] [place], [address] Absolute Neut 5.7 X10 3/uL Normal 2.0-7.7 [facility] Comment on above: Performed By: #### L 100.0100, L501.5200, L500.2500, L501.2300 #### [facility] [address] [place], [address] Basophils/100 WBC (Bld) 0.7 % Normal 0-1 [facility] Comment on above: Performed By: #### L 100.0100, L501.5200, L500.2500, L501.2300 #### [facility] [address] [place], [address] Eosinophils/100 WBC (Bld) 0.5 % Normal 0-5 [facility] Comment on above: Performed By: #### L 100.0100, L501.5200, L500.2500, L501.2300 #### [facility] [address] [place], [address] Erythrocyte distribution width (RBC) [Ratio] 11.6 % Normal 11.6-14.6 [facility] Comment on above: Performed By: #### L 100.0100, L501.5200, L500.2500, L501.2300 #### [facility] [address] [place], [address] Hematocrit (Bld) [Volume fraction] 52.5 % Normal 40-54 [facility] Comment on above: Performed By: #### L 100.0100, L501.5200, L500.2500, L501.2300 #### [facility] [address] [place], [address] Hemoglobin (Bld) [Mass/Vol] 17.5 g/dL High 13.0-16.5 [facility] Comment on above: Performed By: #### L 100.0100, L501.5200, L500.2500, L501.2300 #### [facility] [address] [place], [address] IG% 0.200 Normal 0.0-0.9 [facility] Comment on above: Result Comment: IG% - Immature Granulocytes (promyelocytes, myelocytes and metamyelocytes) > 1% indicates that a LEFT SHIFT is Present. Performed By: #### L 100.0100, L501.5200, L500.2500, L501.2300 #### [facility] [address] [place], [address] Lymphocytes/100 WBC (Bld) 22.2 % Normal 19-41 [facility] Comment on above: Performed By: #### L 100.0100, L501.5200, L500.2500, L501.2300 #### [facility] [address] [place], [address] MCH (RBC) [Entitic mass] 27.8 pg Normal 27.0-32.0 [facility] Comment on above: Performed By: #### L 100.0100, L501.5200, L500.2500, L501.2300 #### [facility] [address] [place], [address] MCHC (RBC) [Mass/Vol] 33.3 g/dL Normal 32-36 [facility] Comment on above: Performed By: #### L 100.0100, L501.5200, L500.2500, L501.2300 #### [facility] [address] [place], [address] MCV (RBC) [Entitic vol] 83.3 fL Normal 80-94 [facility] Comment on above: Performed By: #### L 100.0100, L501.5200, L500.2500, L501.2300 #### [facility] [address] [place], [address] Monocytes/100 WBC (Bld) 4.9 % Normal 0-10 [facility] Comment on above: Performed By: #### L 100.0100, L501.5200, L500.2500, L501.2300 #### [facility] [address] [place], [address] Neutrophils/100 WBC (Bld) 71.5 % High 47-70 [facility] Comment on above: Performed By: #### L 100.0100, L501.5200, L500.2500, L501.2300 #### [facility] [address] [place], [address] Nucleated RBC (Bld) [#/Vol] 0 10*3/uL Normal 0-5 [facility] Comment on above: Performed By: #### L 100.0100, L501.5200, L500.2500, L501.2300 #### [facility] [address] [place], [address] Platelet mean volume (Bld) [Entitic vol] 9.7 fL Normal 6.2-12.0 [facility] Comment on above: Performed By: #### L 100.0100, L501.5200, L500.2500, L501.2300 #### [facility] [address] [place], [address] Platelets (Bld) [#/Vol] 280 10*3/uL Normal 150-450 [facility] Comment on above: Performed By: #### L 100.0100, L501.5200, L500.2500, L501.2300 #### [facility] [address] [place], [address] RBC (Bld) [#/Vol] 6.30 10*6/uL High 4.6-6.2 [facility] Comment on above: Performed By: #### L 100.0100, L501.5200, L500.2500, L501.2300 #### [facility] [address] [place], [address] RDW SD 35.5 fl Normal 35.1-43.9 [facility] Comment on above: Performed By: #### L 100.0100, L501.5200, L500.2500, L501.2300 #### [facility] [address] [place], [address] WBC (Bld) [#/Vol] 8.0 10*3/uL Normal 4.4-11.0 [facility] Comment on above: Performed By: #### L 100.0100, L501.5200, L500.2500, L501.2300 #### [facility] [address] [place], [address] Chest PA and Lateralon 03-26 Chest PA and Lateral [facility] Imaging Services [address] [place] [address] Chest PA and Lateral MR#: [id number] Acct: [id number] Name: EVAN MORENO Rep #: [id number] : 1970 M 53 From: Carson hernandez MD PCP: Dr. Mitch Rudd MD Status: REG ER Study: Chest PA and Lateral Date of Exam: 03/26/24 Exam# [id number] Ordering Dr: [place] [id number] STUDY: X-RAY CHEST REASON FOR EXAM: Male, 53 years old. Chest pain TECHNIQUE: PA and lateral views of the chest. COMPARISON: Comparison is made with prior study dated March 15, 2024. FINDINGS: EKG electrodes are seen. Minimal increased markings at the left lung base suggestive of linear atelectasis. There is no demonstrated pleural abnormality. Normal size heart. Normal mediastinum and nisa. Normal visualized pulmonary arteries. Normal visualized aortic arch and descending thoracic aorta. There are diffuse degenerative changes of the visualized thoracic spine. Normal visualized ribs, clavicles, and shoulders. There is no demonstrated abnormality of the visualized soft tissue structures of the upper abdomen. RAD/Chest PA and Lateral IMPRESSION: Minimal increased markings at the left lung base suggestive of linear atelectasis. Electronically Signed: Carson Kirkpatrick MD at 10:21 [facility] , CC: Dr. Mitch Rudd MD; Dr. Valdo Harry DO Secret Code Expert: Signed Normal [facility] Echo Complete W/ Contraston 03-26-2024 Echo Complete W/ Contrast [facility] [address] [place] [address] Echo Complete W/ Contrast 03/26/24 1509 MR#: [id number] Acct: [id number] Name: EVAN MORENO Rep #: [id number] : 1970 53 From: Jose Ramesh MD Attending Dr: Dr. Bird Claudio MD Status: ADM DARRIAN Ordering Dr: Bird Claudio MD Date: 03/26/24 Location: [facility] Sex: M C Admitted: 03/26/24 Reason For Study: CHEST PAIN Procedure This was a 2D Doppler, Color Flow transthoracic echocardiogram. The study was technically difficult. Due to body habitus.,. Contrast injection was performed. Exam performed portable in patient room. Left Ventricle Normal LV size. Left ventricular systolic function is normal. The left ventricular ejection fraction is 65 %. No regional wall motion abnormalities noted. Right Ventricle Normal RV size. Normal systolic function. Atria Normal left atrium. Normal right atrium. Mitral Valve Normal mitral valve. Tricuspid Valve Normal tricuspid valve. Aortic Valve Trisinus/trileaflet aortic valve. Pulmonic Valve Normal pulmonic valve. Great Vessels Normal aortic root. The pulmonary artery is normal size. Inferior vena cava collapse with respiration. Pericardium/Pleural No pericardial effusion. Medication Diluted definity 2.0ml given slow IV push to enhance endocardial definition. MMode/2D Measurements Calculations LVIDd: 4.8 cm IVSd: 1.1 cm Ao root diam: 3.1 cm LVIDs: 2.4 cm LVPWd: 1.1 cm FS: 49.9 % LAV(MOD-bp): 56.0 ml LVAd ap4: 23.9 cm2 SV(MOD-sp4): 31.3 ml LAV(MOD-bp) Indexed: 26.1 ml/m2 LVLd ap4: 8.0 cm SI(MOD-sp4): 14.6 ml/m2 LAV(MOD-sp2): 60.5 ml EDV(MOD-sp4): 58.3 ml LAV(MOD-sp4): 48.9 ml EDV(sp4-el): 60.6 ml LVAs ap4: 14.5 cm2 LVLs ap4: 6.9 cm ESV(MOD-sp4): 27.0 ml ESV(sp4-el): 26.0 ml EF(MOD-sp4): 53.6 % EF(sp4-el): 57.1 % SV(sp4-el): 34.6 ml LA A4 area: 17.3 cm2 LA dimension(2D): 4.1 cm RA A4 area: 10.5 cm2 TAPSE: 2.4 cm Time Measurements MV dec time: 0.20 sec Doppler Measurements Calculations MV E max nilda: 84.3 cm/sec Lat Peak E' Nilda: 9.5 cm/sec Med Peak E' Nilda: 8.2 cm/sec MV A max nilda: 101.9 cm/sec E/E' lat: 8.9 E/E' med: 10.2 MV E/A: 0.83 MV V2 max: 102.0 cm/sec MV P1/2t max nilda: 96.9 cm/sec Ao V2 max: 173.0 cm/sec MV max P.2 mmHg MV P1/2t: 66.3 msec Ao max P.0 mmHg MV V2 mean: 40.8 cm/sec MV dec slope: 428.0 cm/sec2 Ao V2 mean: 119.1 cm/sec MV mean P.97 mmHg MVA(P1/2t): 3.3 cm2 Ao mean P.3 mmHg MV V2 VTI: 32.7 cm Ao V2 VTI: 30.2 cm AV (velocity ratio): 0.93 LV V1 max: 135.4 cm/sec PA V2 max: 144.9 cm/sec TR max nilda: 212.3 cm/sec LV V1 max P.3 mmHg PA V2 mean: 102.2 cm/sec TR max P.0 mmHg LV V1 mean P.6 mmHg LV V1 mean: 89.6 cm/sec LV V1 VTI: 28.1 cm ECHO/Echo Complete W/ Contrast Interpretation Summary Normal LV size. Left ventricular systolic function is normal. The left ventricular ejection fraction is 65 %. Contrast injection was performed. Ordering Physician: Bird Claudio Referring Physician: Mitch Rudd Chi Performed By: Cristina Wise, ALTHEA, RVT 03/26/24 1616 Date Jose Ramesh MD CC: Dr. Bird Claudio MD; Dr. Mitch Rudd MD Date Dictated: 03/26/24 1509 Date Transcribed: 03/26/24 1616 Secret Code Expert: Signed Normal [facility] Emergency Department Summary on 03-26-2024 Emergency Department Summary [facility] Medical Records Department [address] [place] [address] Emergency Department Summary 03/26/24 MR#: [id number] Acct: [id number] Name: EVAN MORENO Rep #: [id number] : 1970 53 From: Valdo Baker PCP: Dr. Mitch Rudd MD Status:ADM DARRIAN Location: [address] History of Present Illness Chief Complaint: Hypertension Informant: patient and spouse/S.O. Narrative Narrative: Presents with significant other evaluation intermittent chest aching left side for the past 2 weeks. Symptoms would come without any exertion last for 2 minutes no radicular symptoms. States with standing will get lightheaded. No nausea. No diaphoresis. Remote tobacco. Unclear of any family history however reported dad in his 30s. Hypertension history. was seen in the ED 9 days ago. States prior that was at [facility] blood pressure check systolic 230s. He was evaluated the ED he was placed on lisinopril daily for which he is taking. Currently not insured therefore cannot see his PCP due to financial issues. Yesterday blood pressure checked again at [facility] systolic 180s compared to 30s. Last chest symptoms this morning lasting 2 minutes. He states with chest symptoms had nausea and vomiting. No hematemesis. Currently asymptomatic. Denies any history of stress test or heart cath. Denies recent travel, surgeries, or immobilizations. No history of PE or DVT. States history of hyperlipidemia not on any medications. Possible prediabetes. Prior similar symptoms: Yes PFSH PFSH Medical History Polycythemia Chronic viral hepatitis B with delta-agent Anxiety HLD (hyperlipidemia) Elevated LFTs Type 2 diabetes mellitus Fatty liver HTN (hypertension) Home Medications ???Medication ???Instructions ???Recorded ???Last Taken ???Type lisinopril 20 mg tablet 20 mg PO DAILY #30 tabs 03/15/24 Unknown Rx aspirin 81 mg capsule 81 mg PO DAILY 03/26/24 Unknown History Allergy/AdvReac Type Severity Reaction Status Date / Time No Known Allergies Allergy Verified 03/26/24 09:14 Social History Smoking Status: Former smoker alcohol intake: current substance use type: does not use ROS ROS ED Constitutional Constitutional ED: Denies chills, fever(s) or sweats Eyes Eyes: Denies change in vision ENT ENT ED: Denies dysphagia or sore throat Cardiovascular Cardiovascular: Reports chest pain; Denies leg edema, palpitations or racing heartbeat Respiratory/Chest Respiratory/Chest: Denies cough, dyspnea or dyspnea on exertion Gastrointestinal Gastrointestinal: Denies abdominal pain, diarrhea, nausea or vomiting Genitourinary Genitourinary ED: Denies dysuria, hematuria or urinary frequency Musculoskeletal Musculoskeletal: Denies back pain, extremity pain or neck pain Integumentary Denies rash or wounds Neurologic Neurologic: Denies headache(s), paresthesias or weakness EXAM Physical Exam Const Vital Signs: 03/26/24 09:14 03/26/24 09:27 03/26/24 10:14 Temperature 98.1 F Temperature Source Oral Pulse Rate 72 54 L Respiratory Rate 18 15 Blood Pressure 184/106 H 147/77 H Blood Pressure Mean 132 100 Pulse Ox 99 98 97 Oxygen Delivery Method Room Air Room Air Room Air 03/26/24 10:59 03/26/24 12:00 03/26/24 12:26 Temperature 98.4 F Temperature Source Pulse Rate 51 L 51 L 52 L Respiratory Rate 18 18 18 Blood Pressure 152/78 H 139/80 H 147/88 H Blood Pressure Mean 102 99 107 Pulse Ox 97 98 97 Oxygen Delivery Method Room Air Room Air Positive well nourished and well developed General Appearance ED: well developed and NAD HEENT Reports moist mucous membranes normocephalic and atraumatic Eyes EOMs intact bilaterally and conjunctivae normal General Eye ED: Yes normal appearance of both eyes Neck no lymphadenopathy and supple General: Negative for tenderness Chest Wall Chest: Negative for tenderness Resp normal respiratory effort and normal air movement Effort and Inspection: symmetric chest movement; Negative for respiratory distress Cardio regular rate, regular rhythm and no murmurs Peripheral Pulses: pulses 2+ throughout GI normal to inspection, nondistended, normoactive bowel sounds and non-tender Palpation: Negative for guarding or rebound tenderness present Back/Spine no CVA tenderness and no thoracic nor lumbar tenderness Extremity normal to inspection General Extremety ED: Negative for edema or tenderness General Extremity: Negative for edema Neuro oriented x3 and no sensory deficits noted Sensorium / Orientation: awake and alert Skin no rashes or lesions noted and no wounds MDM MDM MDM Narrative Medical decision making narrative: Interven (more content not included)... Normal [facility] H AND P Exam - Hospitaliston 03-26-2024 H&P Exam - Hospitalist [facility] Medical Records Department [address] [place] [address] H P Exam - Hospitalist 03/26/24 1244 MR#: [id number] Acct: [id number] Name: EVAN MORENO Rep #: [id number] : 1970 53 From: Bird Claudio MD PCP: Dr. Mitch Rudd MD Status:ADM DARRIAN Location: [place] [address] HPI - General General Date of Admission: 03/26/24 Date of Service: 03/26/24 Chief Complaint: Chest pain HPI Narrative EVAN MORENO, is a 53 M with past medical history scan for hypertension who presents with chest pain. Patient symptoms started a week prior to his admission. Patient was unable to describe the pain however he described it as being across his chest. He did not relate the pain to any activity nor did he experience any shortness of breath. He had apparently been seen in the emergency department a week prior to his admission. Presented back given recurrence of his symptoms. Patient was admitted to a monitored bed for further management [facility] Medical History Polycythemia Chronic viral hepatitis B with delta-agent Anxiety HLD (hyperlipidemia) Elevated LFTs Type 2 diabetes mellitus Fatty liver HTN (hypertension) Home Medications ???Medication ???Instructions ???Recorded ???Last Taken ???Type lisinopril 20 mg tablet 20 mg PO DAILY #30 tabs 03/15/24 Unknown Rx aspirin 81 mg capsule 81 mg PO DAILY 03/26/24 Unknown History Allergy/AdvReac Type Severity Reaction Status Date / Time No Known Allergies Allergy Verified 03/26/24 09:14 Social History Smoking Status: Former smoker alcohol intake: current substance use type: does not use ROS ROS Narrative GENERAL: denies fever, chills, night sweats, weight loss, anorexia HEENT: denies headache, sinus congestion, or drainage, dysphagia RESPIRATORY: denies cough, sputum production, shortness of breath, CARDIAC: Denies palpitations, orthopnea, PND GASTROINTESTINAL: denies abdominal pain, nausea, vomiting, melena, GENITOURINARY: denies dysuria, urgency, frequency, heamaturia EXTREMITY: denies swelling MUSCULOSKELETAL: denies current joint pain or tenderness NEUROLOGIC: denies focal numbness, weakness, tingling HEMATOLOGIC: denies easy bruising and/or hemorrhage INTEGUMENT: denies rashes PSYCHIATRIC: denies suicidal or homicidal ideation Vital Signs Vital Signs Vital Signs: 03/26/24 09:14 03/26/24 09:27 03/26/24 10:14 Temperature 98.1 F Temperature Source Oral Pulse Rate 72 54 L Respiratory Rate 18 15 Blood Pressure 184/106 H 147/77 H Blood Pressure Mean 132 100 Pulse Ox 99 98 97 Oxygen Delivery Method Room Air Room Air Room Air 03/26/24 10:59 03/26/24 12:00 03/26/24 12:26 Temperature 98.4 F Temperature Source Pulse Rate 51 L 51 L 52 L Respiratory Rate 18 18 18 Blood Pressure 152/78 H 139/80 H 147/88 H Blood Pressure Mean 102 99 107 Pulse Ox 97 98 97 Oxygen Delivery Method Room Air Room Air Weight Weight: 104.6 kg Body Mass Index (BMI) 36.1 Physical Exam Narrative GENERAL: cooperative HEENT: Atraumatic; normocephalic EYES; Anicteric, Normal Conjunctiva NECK; supple, normal thyroid, RESPIRATORY: Diminished to auscultation CARDIOVASCULAR: Regular S1 S2, GI: soft, normoactive bowel sounds, : No Renal angle tenderness; EXTREMITIES: No edema, no clubbing, MUSCULOSKELETAL: no muscle wasting NEURO: Awake; no lateralizing signs. SKIN: No Rash PSYCH; Flat affect Results Lab / Micro Data 03/26/24 09:33 03/26/24 09:33 Labs: Laboratory Results - last 24 hr 03/26/24 09:33: WBC 8.0, RBC 6.30 H, Hgb 17.5 H, Hct 52.5, MCV 83.3, MCH 27.8, MCHC 33.3, RDW Std Deviation 35.5, RDW Coeff of Darell 11.6, Plt Count 280, MPV 9.7, Immature Gran % (Auto) 0.200, Neut % (Auto) 71.5 H, Lymph % (Auto) 22.2, [place] % (Auto) 4.9, Eos % (Auto) 0.5, Baso % (Auto) 0.7, Absolute Neuts (auto) 5.7, Absolute Lymphs (auto) 1.78, Nucleated RBC % 0, Sodium 138, Potassium 3.9, Chloride 105, Carbon Dioxide 25.0, Anion Gap 8, BUN 13, Creatinine 1.06, Estim Creat Clear Calc 83.39, Est GFR (MDRD) Af Amer 94, Est GFR (MDRD) Non-Af 78, BUN/Creatinine Ratio 12.3, Glucose 173 H , Calcium 9.6, Troponin I High Sens 16 03/26/24 11:42: Troponin I High Sens 58 Imaging Radiology Impression Chest X-Ray 03/26/24 09:40 IMPRESSION: Minimal increased markings at the left lung base suggestive of linear atelectasis. Electronically Signed: Carson Kirkpatrick MD at 10:21 EST , Assessment Plan Assessment/Plan (1) Chest pain: (2) Hypertension: PLAN: Plan Patient is a 53-year-old gentleman presented (more content not included)... Normal [facility] L501.4020on 03-26-2024 TROPONIN-I HS 54 pg/mL Normal 3.0-78.0 [facility] Comment on above: Order Comment: 'TROP ' Serial specimen #1, #2 or #3: 3 Result Comment: Plea se Note: New Test Units and Gender Specific Reference Ranges. For more information see Policy Stat Procedure [place] High Sensitivity Troponin (TNIH) and attachments. Performed By: #### L 100.0100, L501.5200, L500.2500, L501.2300 #### [facility] [address] [place], [address] TROPONIN-I HS 58 pg/mL Normal 3.0-78.0 [facility] Comment on above: Result Comment: Plea se Note: New Test Units and Gender Specific Reference Ranges. For more information see Policy Stat Procedure [place] High Sensitivity Troponin (TNIH) and attachments. Performed By: #### L 501.4020 #### [facility] [address] [place], [address] L501.5425on 03-26-2024 TROPONIN-I HS 16 pg/mL Normal 3.0-78.0 [facility] Comment on above: Order Comment: 1Y Result Comment: Plea se Note: New Test Units and Gender Specific Reference Ranges. For more information see Policy Stat Procedure [place] High Sensitivity Troponin (TNIH) and attachments. Performed By: #### L 100.0100, L501.5200, L500.2500, L501.2300 #### [facility] [address] [place], [address] Troponin IOrdered By: Bird Claudio on 03-26-2024 Troponin I High Sensitivity 54 pg/mL 3.0-78.0 [facility] Comment on above: Please Note: New [place] t Units and Gender Specific Reference Ranges. For more information see Policy Stat Procedure [place] High Sensitivity Troponin (TNIH) and attachments. 12 Lead EKGon 03-15-2024 12 Lead EKG [facility] Cardiovascular Services [address] [place] [address] 12 Lead EKG 03/15/24 1939 MR#: [id number] Acct: [id number] Name: EVAN MORENO Rep #: [id number] : 1970 53 From: Jose Ramesh MD Attending Dr: Status: DEP ER Ordering Dr: Valorie Reinoso DO Date: 03/15/24 Location: ED Sex: M C Admitted: Test Reason : DYSRHYTHMIA Blood Pressure : */* mmHG Vent. Rate : 54 BPM Atrial Rate : 54 BPM P-R Int : 132 ms QRS Dur : 78 ms QT Int : 422 ms P-R-T Axes : 20 18 19 degrees QTcB Int : 400 ms Sinus bradycardia Otherwise normal ECG Confirmed by JOSE RAMESH MD ([id number]), state editor GLADYS WILSON ([id number]) on 03/17/2024 9:27:39 AM Referred By: Confirmed By: JOSE RAMESH MD 03/17/24926 Date Jose Ramesh MD CC: Dr. Valorie Reinoso DO; Dr. Mitch Rudd MD Signed Normal [facility] Basic Metabolic Profile (BMP )on 03-15-2024 BUN/CRE 15.0 RATIO Normal 10-20 [facility] Comment on above: Order Comment: 1 Y Performed By: #### L 500.2500, L100.0100, L501.5425 #### [facility] [address] [place], [address] CA,Total 8.9 mg/dL Normal 8.5-10.1 [facility] Comment on above: Order Comment: 1 Y Performed By: #### L 500.2500, L100.0100, L501.5425 #### [facility] [address] [place], [address] Chloride [Moles/Vol] 106 mmol/L Normal 98-107 [facility] Comment on above: Order Comment: 1 Y Performed By: #### L 500.2500, L100.0100, L501.5425 #### [facility] [address] [place], [address] CO2 [Moles/Vol] 25.0 mmol/L Normal 21.0-32.0 [facility] Comment on above: Order Comment: 1 Y Performed By: #### L 500.2500, L100.0100, L501.5425 #### [facility] [address] [place], [address] Creatinine [Mass/Vol] 0.87 mg/dL Normal 0.70-1.30 [facility] Comment on above: Order Comment: 1 Y Result Comment: The validity of the calculated GFR GFRAA in patients over 70 years has not been determined. Clinical correlation is essential. Performed By: #### L 500.2500, L100.0100, L501.5425 #### [facility] [address] [place], [address] ECRCL 116.48 ml/min Normal [facility] Comment on above: Order Comment: 1 Y Performed By: #### L 500.2500, L100.0100, L501.5425 #### [facility] [address] [place], [address] EST GFR - AA 119 mL/min Normal >60 [facility] Comment on above: Order Comment: 1 Y Result Comment: Afri can [place] GFR Calc Performed By: #### L 500.2500, L100.0100, L501.5425 #### [facility] [address] [place], [address] GAP 6 Normal 5-15 [facility] Comment on above: Order Comment: 1 Y Performed By: #### L 500.2500, L100.0100, L501.5425 #### [facility] [address] [place], [address] GFR/1.73 sq M.predicted among non-blacks MDRD (S/P/Bld) [Vol rate/Area] 98 mL/min/{1.73_m2} Normal >60 [facility] Comment on above: Order Comment: 1 Y Result Comment: Non- GFR Calc Performed By: #### L 500.2500, L100.0100, L501.5425 #### [facility] [address] [place], [address] Glucose [Mass/Vol] 111 mg/dL High 74-106 [facility] Comment on above: Order Comment: 1 Y Result Comment: Fast ing Glucose result from 100 to 125 mg/dL suggests IMPAIRED HOMEOSTASIS per A.D.A. criteria. Performed By: #### L 500.2500, L100.0100, L501.5425 #### [facility] [address] [place], [address] Potassium [Moles/Vol] 4.1 mmol/L Normal 3.5-5.1 [facility] Comment on above: Order Comment: 1 Y Performed By: #### L 500.2500, L100.0100, L501.5425 #### [facility] [address] [place], [address] Sodium [Moles/Vol] 138 mmol/L Normal 136-145 [facility] Comment on above: Order Comment: 1 Y Performed By: #### L 500.2500, L100.0100, L501.5425 #### [facility] [address] [place], [address] Urea nitrogen [Mass/Vol] 13 mg/dL Normal 7-18 [facility] Comment on above: Order Comment: 1 Y Performed By: #### L 500.2500, L100.0100, L501.5425 #### [facility] [address] [place], [address] CBC W/Diff, Automatedon 11-0 2-2023 Absolute Lymph 2.26 X10 3/uL Normal 0.83-4.51 [facility] Comment on above: Performed By: #### L 500.2500, L100.0100, L501.5425 #### [facility] [address] [place], [address] Absolute Neut 5.7 X10 3/uL Normal 2.0-7.7 [facility] Comment on above: Performed By: #### L 500.2500, L100.0100, L501.5425 #### [facility] [address] [place], [address] Basophils/100 WBC (Bld) 0.9 % Normal 0-1 [facility] Comment on above: Performed By: #### L 500.2500, L100.0100, L501.5425 #### [facility] [address] [place], [address] Eosinophils/100 WBC (Bld) 0.7 % Normal 0-5 [facility] Comment on above: Performed By: #### L 500.2500, L100.0100, L501.5425 #### [facility] [address] [place], [address] Erythrocyte distribution width (RBC) [Ratio] 11.6 % Normal 11.6-14.6 [facility] Comment on above: Performed By: #### L 500.2500, L100.0100, L501.5425 #### [facility] [address] [place], [address] Hematocrit (Bld) [Volume fraction] 48.1 % Normal 40-54 [facility] Comment on above: Performed By: #### L 500.2500, L100.0100, L501.5425 #### [facility] [address] [place], [address] Hemoglobin (Bld) [Mass/Vol] 17.0 g/dL High 13.0-16.5 [facility] Comment on above: Performed By: #### L 500.2500, L100.0100, L501.5425 #### [facility] [address] [place], [address] IG% 0.200 Normal 0.0-0.9 [facility] Comment on above: Result Comment: IG% - Immature Granulocytes (promyelocytes, myelocytes and metamyelocytes) > 1% indicates that a LEFT SHIFT is Present. Performed By: #### L 500.2500, L100.0100, L501.5425 #### [facility] [address] [place], [address] Lymphocytes/100 WBC (Bld) 26.0 % Normal 19-41 [facility] Comment on above: Performed By: #### L 500.2500, L100.0100, L501.5425 #### [facility] [address] [place], [address] MCH (RBC) [Entitic mass] 28.9 pg Normal 27.0-32.0 [facility] Comment on above: Performed By: #### L 500.2500, L100.0100, L501.5425 #### [facility] [address] [place], [address] MCHC (RBC) [Mass/Vol] 35.3 g/dL Normal 32-36 [facility] Comment on above: Performed By: #### L 500.2500, L100.0100, L501.5425 #### [facility] [address] [place], [address] MCV (RBC) [Entitic vol] 81.8 fL Normal 80-94 [facility] Comment on above: Performed By: #### L 500.2500, L100.0100, L501.5425 #### [facility] [address] [place], [address] Monocytes/100 WBC (Bld) 6.3 % Normal 0-10 [facility] Comment on above: Performed By: #### L 500.2500, L100.0100, L501.5425 #### [facility] [address] [place], [address] Neutrophils/100 WBC (Bld) 65.9 % Normal 47-70 [facility] Comment on above: Performed By: #### L 500.2500, L100.0100, L501.5425 #### [facility] [address] [place], [address] Nucleated RBC (Bld) [#/Vol] 0 10*3/uL Normal 0-5 [facility] Comment on above: Performed By: #### L 500.2500, L100.0100, L501.5425 #### [facility] [address] [place], [address] Platelet mean volume (Bld) [Entitic vol] 10.2 fL Normal 6.2-12.0 [facility] Comment on above: Performed By: #### L 500.2500, L100.0100, L501.5425 #### [facility] [address] [place], [address] Platelets (Bld) [#/Vol] 289 10*3/uL Normal 150-450 [facility] Comment on above: Performed By: #### L 500.2500, L100.0100, L501.5425 #### [facility] [address] [place], [address] RBC (Bld) [#/Vol] 5.88 10*6/uL Normal 4.6-6.2 [facility] Comment on above: Performed By: #### L 500.2500, L100.0100, L501.5425 #### [facility] [address] [place], [address] RDW SD 34.3 fl Low 35.1-43.9 [facility] Comment on above: Performed By: #### L 500.2500, L100.0100, L501.5425 #### [facility] [address] [place], [address] WBC (Bld) [#/Vol] 8.7 10*3/uL Normal 4.4-11.0 [facility] Comment on above: Performed By: #### L 500.2500, L100.0100, L501.5425 #### [facility] [address] [place], [address] Chest 1 View (Portable)on Chest 1 View (Portable) [facility] Imaging Services [address] [address] Chest 1 View (Portable) MR#: [id number] Acct: [id number] Name: EVAN MORENO Rep #: [id number] : 1970 M 53 From: Ivanna goldman MD PCP: Dr. Mitch Rudd MD Status: PRE ER Study: Chest 1 View (Portable) Date of Exam: 03/15/24 Exam# [id number] Ordering Dr: [place]. [id number] INDICATION: chest pain EXAMINATION/TECHNIQUE: X-RAY - XR Chest 1 View COMPARISON: 02/22/2021. FINDINGS: LINES/DEVICES: None. LUNGS: No consolidation, edema or effusion. No pneumothorax. MEDIASTINUM AND CARDIOVASCULAR STRUCTURES: Cardiac silhouette not enlarged. Central airways and mediastinal contour are unremarkable. BONES AND SOFT TISSUES: Unremarkable. RAD/Chest 1 View (Portable) IMPRESSION: No radiographic evidence of acute cardiopulmonary disease. Electronically Signed: Ivanna Mendoza MD at 20:17 EDT Reading Location ID and State: [id number] / Tel , Service support , CC: Dr. Mitch Rudd MD; ED PHYSICIAN PROVIDER Secret Code Expert: Signed Normal [facility] Emergency Department Summary on 03-15-2024 Emergency Department Summary [facility] Medical Records Department [address] [place] [address] Emergency Department Summary 03/15/24 MR#: [id number] Acct: [id number] Name: EVAN MORENO Rep #: [id number] : 1970 53 From: Valorie Reinoso DO PCP: Dr. Mitch Rudd MD Status:DEP ER Location: ED HPI History of Present Illness Chief Complaint: Hypertension Informant: patient Narrative Narrative: Patient is a 53-year-old male with history of hypertension presenting with elevated blood pressure. Patient states he has been having symptoms of high blood pressure including headache, intermittent chest discomfort, heartburn and fogginess over the past few days to a week. He states his feels like his blood pressure is high. He previously saw Dr. Rudd and took lisinopril 20 mg to be states has been off it for about a year. He was trying to get off blood pressure medicine and just maintain his blood pressure with diet and exercise but has been unsuccessful with that. Like to go back on his blood pressure medicine. Denies any other complaints or concerns at this time. Denies any associated cough, difficulty breathing, fever, leg swelling, nausea, vomiting or changes bowel movements. [facility] Medical History Polycythemia Chronic viral hepatitis B with delta-agent Anxiety HLD (hyperlipidemia) Elevated LFTs Type 2 diabetes mellitus Fatty liver HTN (hypertension) Home Medications ???Medication ???Instructions ???Recorded ???Last Taken ???Type lisinopril 20 mg tablet 20 mg PO DAILY #30 tabs 03/15/24 Unknown Rx Allergy/AdvReac Type Severity Reaction Status Date / Time No Known Allergies Allergy Verified 03/15/24 19:14 Social History Smoking Status: Current every day smoker tobacco type: cigarettes and e-cigarettes alcohol intake: current substance use type: does not use ROS ROS ED Constitutional Constitutional ED: Denies chills or fever(s) Eyes Eyes: Denies change in vision ENT ENT ED: Denies rhinorrhea or sore throat Cardiovascular Cardiovascular: Reports chest pain; Denies palpitations or racing heartbeat Respiratory/Chest Respiratory/Chest: Denies cough or dyspnea Gastrointestinal Gastrointestinal: Reports abdominal pain; Denies diarrhea, nausea or vomiting Musculoskeletal Musculoskeletal: Denies arthralgias or myalgias Integumentary Denies rash Neurologic Neurologic: Reports headache(s); Denies paresthesias or weakness EXAM Physical Exam Const Vital Signs: 03/15/24 19:11 03/15/24 19:34 03/15/24 19:34 Temperature 98.7 F Temperature Source Oral Pulse Rate 60 Respiratory Rate 18 Respiratory Effort Normal Non-Labored Respiratory Pattern Normal Blood Pressure 232/113 H Blood Pressure Mean 152 Pulse Ox 98 98 Oxygen Delivery Method Room Air Room Air 03/15/24 20:11 03/15/24 21:00 Temperature Temperature Source Pulse Rate 59 L 48 L Respiratory Rate 18 16 Respiratory Effort Respiratory Pattern Blood Pressure 184/97 H 192/103 H Blood Pressure Mean 126 132 Pulse Ox 96 97 Oxygen Delivery Method Room Air Room Air Positive well nourished and well developed General Appearance ED: well developed and NAD HEENT Reports moist mucous membranes Eyes PERRL and EOMs intact bilaterally Neck supple and no JVD Chest Wall inspection of chest normal and palpation of chest normal Resp normal respiratory effort and clear to auscultation bilaterally Cardio regular rate and regular rhythm GI normal to inspection, nondistended, normoactive bowel sounds and non-tender Extremity normal to inspection General Extremety ED: Negative for edema General Extremity: Negative for edema Neuro oriented x3 and CN's II-XII intact bilaterally Neuro Narrative: No focal deficits appreciated Sensorium / Orientation: alert Motor Exam: Negative for general weakness Psych mental status grossly normal Skin no rashes or lesions noted and no wounds MDM MDM MDM Narrative Medical decision making narrative: Patient evaluated for symptoms associated with his high blood pressure. Does have a history of hypertension but has been off meds for about a year now. States he previously was on lisinopril 20 mg. On upon arrival patient's blood pressure was 232/113. While in the ER without intervention his blood pressure distally downtrends and when I was in the room it was 168/92. Differential includes asymptomatic hypertension, hypertensive emergency, ACS, renal insufficiency. Protocol labs obtained including CBC, BMP, troponin, EKG and chest x-ray. Workup largely negative. No signs of endorgan damage associated with hypertension. Is not any focal neurologic deficits and I d (more content not included)... Normal [facility] L501.4020on 03-15-2024 TROPONIN-I HS 6 pg/mL Normal 3.0-78.0 [facility] Comment on above: Result Comment: Plea Note: New Test Units and Gender Specific Reference Ranges. For more information see Policy Stat Procedure [place] High Sensitivity Troponin (TNIH) and attachments. Performed By: #### L 100.0100, L501.5200, L500.2500, L501.2300 #### [facility] [address] [place], [address] L501.5425on 03-15-2024 TROPONIN-I HS 6 pg/mL Normal 3.0-78.0 [facility] Comment on above: Order Comment: 1 Y Result Comment: Plea se Note: New Test Units and Gender Specific Reference Ranges. For more information see Policy Stat Procedure [place] High Sensitivity Troponin (TNIH) and attachments. Performed By: #### L 500.2500, L100.0100, L501.5425 #### [facility] [address] [place], [address] Absolute lymphocyte countOrd ered By: Dr. Rudd on 07-13-2022 Lymphocytes Auto (Unsp spec) [#/Vol] 3.27 10*3/uL 0.83-4.51 [facility] Basophil percentageOrdered B y: Dr. Rudd on 07-13-2022 Basophils/100 WBC (Bld) 0.6 % 0-1 [facility] Eosinophils/100 WBC (Bld) 1.5 % 0-5 [facility] Neutrophils (Bld) [#/Vol] 5.3 10*3/uL 2.0-7.7 [facility] Neutrophils/100 WBC (Bld) 56.0 % 47-70 [facility] WBC (Bld) [#/Vol] 9.4 10*3/uL 4.4-11.0 [facility] Blood erythrocytes count (nu mber/volume)Ordered By: Dr. Rudd on 07-13-2022 RBC (Bld) [#/Vol] 5.93 10*6/uL 4.6-6.2 [facility] Blood hemoglobin measurement (mass/volume)Ordered By: Dr. Rudd on 07-13-2022 Hemoglobin (Bld) [Mass/Vol] 16.8 g/dL 13.0-16.5 [facility] Blood lymphocytes/100 leukoc ytesOrdered By: Dr. Rudd on 07-13-2022 Lymphocytes/100 WBC (Bld) 34.8 % 19-41 [facility] Blood monocytes/100 leukocyt esOrdered By: Dr. Rudd on 07-13-2022 Monocytes/100 WBC (Bld) 6.9 % 0-10 [facility] Blood platelet mean volumeOr dered By: Dr. Rudd on 07-13-2022 Platelet mean volume (Bld) [Entitic vol] 11.0 fL 6.2-12.0 [facility] Determination of erythrocyte mean corpuscular volume (MCV)Ordered By: Dr. Rudd on 07-13-2022 MCV (RBC) [Entitic vol] 86.2 fL 80-94 [facility] Hematocrit Auto (Bld) [Volum e fraction]Ordered By: Dr. Rudd on 07-13-2022 Hematocrit (Bld) [Volume fraction] 51.1 % 40-54 [facility] - Hematology and Cell countsOrdered By: Dr. Rudd on 07-13-2022 Erythrocyte distribution width (RBC) [Entitic vol] 37.6 fL 35.1-43.9 [facility] Erythrocyte distribution width (RBC) [Ratio] 11.9 % 11.6-14.6 [facility] Immature granulocytes/100 WBC (Bld) 0.200 % 0.0-0.9 [facility] Comment on above: IG% - Immature Granu locytes (promyelocytes, myelocytes and metamyelocytes) > 1% indicates that a LEFT SHIFT is Present. MCH (RBC) [Entitic mass] 28.3 pg 27.0-32.0 [facility] Nucleated RBC/100 WBC (Bld) [Ratio] 0 % 0-5 [facility] MCHC Auto (RBC) [Mass/Vol]Or dered By: Dr. Rudd on 07-13-2022 MCHC (RBC) [Mass/Vol] 32.9 g/dL 32-36 [facility] Platelets bldOrdered By: Dr. Rudd on 07-13-2022 Platelets (Bld) [#/Vol] 278 10*3/uL 150-450 [facility] Absolute lymphocyte countOrd ered By: Mitch Rudd on 06-26-2022 Lymphocytes Auto (Unsp spec) [#/Vol] 3.21 10*3/uL 0.83-4.51 [facility] Basophil percentageOrdered B y: Mitch Rudd on 06-26-2022 Basophils/100 WBC (Bld) 0.4 % 0-1 [facility] Bilirubin [Mass/Vol] 0.40 mg/dL 0.20-1.00 [facility] Comment on above: For patients on eltr ombopag therapy, use of Dimension [place] TBIL is not recommended. Chloride [Moles/Vol] 102 mmol/L 98-107 [facility] Eosinophils/100 WBC (Bld) 1.9 % 0-5 [facility] Glucose [Mass/Vol] 131 mg/dL 74-106 [facility] Comment on above: Fasting Glucose resu lt greater than or equal to 126 mg/dL suggests DIABETES MELLITUS per A.D.A. criteria. Neutrophils (Bld) [#/Vol] 5.6 10*3/uL 2.0-7.7 [facility] Neutrophils/100 WBC (Bld) 57.8 % 47-70 [facility] Potassium [Moles/Vol] 4.1 mmol/L 3.5-5.1 [facility] Comment on above: Slight Hemolysis, Re sult may be falsely increased. Protein [Mass/Vol] 8.3 g/dL 6.4-8.2 [facility] Sodium [Moles/Vol] 136 mmol/L 136-145 [facility] WBC (Bld) [#/Vol] 9.7 10*3/uL 4.4-11.0 [facility] Blood erythrocytes count (nu mber/volume)Ordered By: Mitch Rudd on 06-26-2022 RBC (Bld) [#/Vol] 6.26 10*6/uL 4.6-6.2 [facility] Blood hemoglobin measurement (mass/volume)Ordered By: Mitch Rudd on 06-26-2022 Hemoglobin (Bld) [Mass/Vol] 18.0 g/dL 13.0-16.5 [facility] Blood lymphocytes/100 leukoc ytesOrdered By: Mitch Rudd on 06-26-2022 Lymphocytes/100 WBC (Bld) 33.0 % 19-41 [facility] Blood monocytes/100 leukocyt esOrdered By: Mitch Rudd on 06-26-2022 Monocytes/100 WBC (Bld) 6.6 % 0-10 [facility] Blood platelet mean volumeOr dered By: Mitch Rudd on 06-26-2022 Platelet mean volume (Bld) [Entitic vol] 10.5 fL 6.2-12.0 [facility] Determination of erythrocyte mean corpuscular volume (MCV)Ordered By: Mitch Rudd on 06-26-2022 MCV (RBC) [Entitic vol] 85.3 fL 80-94 [facility] Hematocrit Auto (Bld) [Volum e fraction]Ordered By: Mitch Rudd on 06-26-2022 Hematocrit (Bld) [Volume fraction] 53.4 % 40-54 [facility] - Chemistry and C hemistry - challengeOrdered By: [facility]-26[facility] ALP [Catalytic activity/Vol] 98 U/L 45-117 [facility] ALT [Catalytic activity/Vol] 86 U/L 16-61 [facility] CO2 [Moles/Vol] 27.0 mmol/L 21.0-32.0 [facility] Globulin (S) [Mass/Vol] 4.6 g/dL 2.2-4.2 [facility] Urea nitrogen/Creatinine [Mass ratio] 17.2 mg/mg 10-20 [facility] - Hematology and Cell countsOrdered By: [facility] 06-26-2022 Erythrocyte distribution width (RBC) [Entitic vol] 36.1 fL 35.1-43.9 [facility] Erythrocyte distribution width (RBC) [Ratio] 11.8 % 11.6-14.6 [facility] Immature granulocytes/100 WBC (Bld) 0.300 % 0.0-0.9 [facility] Comment on above: IG% - Immature Granu locytes (promyelocytes, myelocytes and metamyelocytes) > 1% indicates that a LEFT SHIFT is Present. MCH (RBC) [Entitic mass] 28.8 pg 27.0-32.0 [facility] Nucleated RBC/100 WBC (Bld) [Ratio] 0 % 0-5 [facility] MCHC Auto (RBC) [Mass/Vol]Or dered By: Mitch Rudd on 06-26-2022 MCHC (RBC) [Mass/Vol] 33.7 g/dL 32-36 [facility] No Panel InformationOrdered By: Mitch Rudd on 06-26-2022 Estimated GFR (MDRD) Amer 128 mL/min >60 [facility] Comment on above: GFR Calc Estimated GFR (MDRD) Non-Af Amer 106 mL/min >60 [facility] Comment on above: Non- GFR Calc Thyroid Stimulating Hormone (TSH) 2.84 uIU/mL 0.358-3.74 [facility] Platelets bldOrdered By: Mitch Rudd on 06-26-2022 Platelets (Bld) [#/Vol] 275 10*3/uL 150-450 [facility] Review by pathologistOrdered By: Mitch Rudd on 06-26-2022 Pathologist review Irccardo (Unsp spec) [Interp] Reviewed [facility] Comment on above: Previous reported re sult: Ariane roth Edited by: MELISSA on 06/27/22:1313 AMENDED REPORT 06/27/22 1313 PATH REV previously reported as: Ariane roth Serum or plasma albumin claudia urement (mass/volume)Ordered By: Mitch uRdd on 06-26-2022 Albumin [Mass/Vol] 3.7 g/dL 3.2-5.0 [facility] Serum or plasma albumin/glob ulin mass ratioOrdered By: Mitch Rudd on 06-26-2022 Albumin/Globulin [Mass ratio] 0.8 {ratio} 0.9-2.4 [facility] Serum or plasma calcium claudia urement (mass/volume)Ordered By: Mitch Rudd on 06-26-2022 Calcium [Mass/Vol] 9.4 mg/dL 8.5-10.1 [facility] Serum or plasma creatinine m easurement (mass/volume)Ordered By: Mitch Rudd on 06-26-2022 Creatinine [Mass/Vol] 0.81 mg/dL 0.70-1.30 [facility] Comment on above: The validity of the calculated GFR & GFRAA in patients over 70 years has not been determined. Clinical correlation is essential. Serum or plasma urea nitroge n measurement (mass/volume)Ordered By: Mitch Rudd on 06-26-2022 Urea nitrogen [Mass/Vol] 14 mg/dL 7-18 [facility] Thin prep Papanicolaou smear with manual screeningOrdered By: Mitch Rudd on 06-26-2022 Thin prep Papanicolaou smear with manual screening 39 U/L 15-37 [facility] Comment on above: Slight Hemolysis, Re sult may be falsely increased. Thin prep Papanicolaou smear with manual screening 7 5-15 [facility] Absolute lymphocyte countOrd ered By: Dr. Rudd on 03-27-2022 Lymphocytes Auto (Unsp spec) [#/Vol] 2.52 10*3/uL 0.83-4.51 [facility] Basophil percentageOrdered B y: Dr. Rudd on 03-27-2022 Basophils/100 WBC (Bld) 0.7 % 0-1 [facility] Bilirubin [Mass/Vol] 0.40 mg/dL 0.20-1.00 [facility] Comment on above: For patients on eltr ombopag therapy, use of Dimension [place] TBIL is not recommended. Chloride [Moles/Vol] 100 mmol/L 98-107 [facility] Eosinophils/100 WBC (Bld) 1.7 % 0-5 [facility] Glucose [Mass/Vol] 208 mg/dL 74-106 [facility] Comment on above: Glucose result great er than or equal to 200 mg/dLsuggests DIABETES MELLITUS per A.D.A. criteria. Neutrophils (Bld) [#/Vol] 5.5 10*3/uL 2.0-7.7 [facility] Neutrophils/100 WBC (Bld) 63.6 % 47-70 [facility] Potassium [Moles/Vol] 3.6 mmol/L 3.5-5.1 [facility] Protein [Mass/Vol] 7.6 g/dL 6.4-8.2 [facility] Sodium [Moles/Vol] 137 mmol/L 136-145 [facility] WBC (Bld) [#/Vol] 8.7 10*3/uL 4.4-11.0 [facility] Blood erythrocytes count (nu mber/volume)Ordered By: Dr. Rudd on 03-27-2022 RBC (Bld) [#/Vol] 5.84 10*6/uL 4.6-6.2 [facility] Blood hemoglobin measurement (mass/volume)Ordered By: Dr. Rudd on 03-27-2022 Hemoglobin (Bld) [Mass/Vol] 17.3 g/dL 13.0-16.5 [facility] Blood lymphocytes/100 leukoc ytesOrdered By: Dr. Rudd on 03-27-2022 Lymphocytes/100 WBC (Bld) 29.0 % 19-41 [facility] Blood monocytes/100 leukocyt esOrdered By: Dr. Rudd on 03-27-2022 Monocytes/100 WBC (Bld) 4.8 % 0-10 [facility] Blood platelet mean volumeOr dered By: Dr. Rudd on 03-27-2022 Platelet mean volume (Bld) [Entitic vol] 11.2 fL 6.2-12.0 [facility] Determination of erythrocyte mean corpuscular volume (MCV)Ordered By: Dr. Rudd on 03-27-2022 MCV (RBC) [Entitic vol] 86.1 fL 80-94 [facility] Hematocrit Auto (Bld) [Volum e fraction]Ordered By: Dr. Rudd on 03-27-2022 Hematocrit (Bld) [Volume fraction] 50.3 % 40-54 [facility] - Chemistry and C hemistry - challengeOrdered By: Dr. Rudd on 03-27-2022 ALP [Catalytic activity/Vol] 99 U/L 45-117 [facility] ALT [Catalytic activity/Vol] 87 U/L 16-61 [facility] CO2 [Moles/Vol] 27.0 mmol/L 21.0-32.0 [facility] Globulin (S) [Mass/Vol] 3.9 g/dL 2.2-4.2 [facility] Urea nitrogen/Creatinine [Mass ratio] 12.7 mg/mg 10-20 [facility] - Hematology and Cell countsOrdered By: Dr. Rudd on 03-27-2022 Erythrocyte distribution width (RBC) [Entitic vol] 37.9 fL 35.1-43.9 [facility] Erythrocyte distribution width (RBC) [Ratio] 12.2 % 11.6-14.6 [facility] Immature granulocytes/100 WBC (Bld) 0.200 % 0.0-0.9 [facility] Comment on above: IG% - Immature Granu locytes (promyelocytes, myelocytes and metamyelocytes) > 1% indicates that a LEFT SHIFT is Present. MCH (RBC) [Entitic mass] 29.6 pg 27.0-32.0 [facility] Nucleated RBC/100 WBC (Bld) [Ratio] 0 % 0-5 [facility] MCHC Auto (RBC) [Mass/Vol]Or dered By: Dr. Rudd on 03-27-2022 MCHC (RBC) [Mass/Vol] 34.4 g/dL 32-36 [facility] No Panel InformationOrdered By: Dr. Rudd on 03-27-2022 Estimated GFR (MDRD) Amer 119 mL/min >60 [facility] Comment on above: GFR Calc Estimated GFR (MDRD) Non-Af Amer 99 mL/min >60 [facility] Comment on above: Non- GFR Calc Hepatitis C Antibody Non-Reactive Nonreactive [facility] Comment on above: Non Reactive: < 0.8 Equivocal: >/= 0.8 to < 1.0 Reactive: >/= 1.0The CDC recommends that a reactive/equivocal HCV antibody result be followed up by the HCV Nucleic Acid Amplificationtest (690741) Thyroid Stimulating Hormone (TSH) 1.47 uIU/mL 0.358-3.74 [facility] Platelets bldOrdered By: Dr. Rudd on 03-27-2022 Platelets (Bld) [#/Vol] 305 10*3/uL 150-450 [facility] [facility] Serum or plasma albumin claudia urement (mass/volume)Ordered By: Dr. Rudd on 03-27-2022 Albumin [Mass/Vol] 3.7 g/dL 3.2-5.0 [facility] Serum or plasma albumin/glob ulin mass ratioOrdered By: Dr. Rudd on 03-27-2022 Albumin/Globulin [Mass ratio] 0.9 {ratio} 0.9-2.4 [facility] Serum or plasma calcium claudia urement (mass/volume)Ordered By: Dr. Rudd on 03-27-2022 Calcium [Mass/Vol] 8.5 mg/dL 8.5-10.1 [facility] Serum or plasma creatinine m easurement (mass/volume)Ordered By: Dr. Rudd on 03-27-2022 Creatinine [Mass/Vol] 0.87 mg/dL 0.70-1.30 [facility] Comment on above: The validity of the calculated GFR & GFRAA in patients over 70 years has not been determined. Clinical correlation is essential. Serum or plasma urea nitroge n measurement (mass/volume)Ordered By: Dr. Rudd on 03-27-2022 Urea nitrogen [Mass/Vol] 11 mg/dL 7-18 [facility] Thin prep Papanicolaou smear with manual screeningOrdered By: Dr. Rudd on 03-27-2022 Thin prep Papanicolaou smear with manual screening 43 U/L 15-37 [facility] Thin prep Papanicolaou smear with manual screening 10 5-15 [facility] CNOVon 02-03-2021 CNOV Office Visit (UCWSTR ) EVAN MORENO ([id number]) 1970 M Date Time Provider Department 02/03/21 10:30 AM THE[facility] FRANKEL [facility] During your visit today, we recorded the following information about you: Temperature Pulse Respiration Blood pressure 97.2 degrees 68/minute 16/minute 134/90 Weight 116.1 kg Thea Frankel APRN.CNP 02/03/2021 10:58 AM Signed This note was created using NoteWriter. Subjective Evan Moreno is a 50 year old male. 50 year old male with PMH HTN presents with complaints of cough and congestion. Acute onset of symptoms was 2 to 3 days ago +cough +congestion +SOB with coughing. +fatigue States 3 days ago he experienced dizziness, but states that only lasted the first day and has since resolved Denies CP. Denies prior history of COVID. Denies The history is provided by the patient. No speech language pathologist assistant was used. URI He complains of cough, shortness of breath and sputum production. There is no chest tightness, difficulty breathing, frequent throat clearing, hemoptysis, hoarse voice or wheezing. This is a new problem. The current episode started in the past 7 days. The problem occurs constantly. The problem has been unchanged. The cough is non-productive. Associated symptoms include malaise/fatigue, nasal congestion, rhinorrhea and a sore throat. Pertinent negatives include no appetite change, chest pain, dyspnea on exertion, ear congestion, ear pain, fever, headaches, heartburn, myalgias, orthopnea, PND, postnasal drip, sneezing, sweats, trouble swallowing or weight loss. His symptoms are aggravated by nothing. His symptoms are alleviated by nothing. He reports no improvement on treatment. There are no known risk factors for lung disease. There is no history of asthma, bronchiectasis, bronchitis, COPD, emphysema or pneumonia. PAST MEDICAL HISTORY Diagnosis Date - Hypertension - Mild depression (HCC) No past surgical history on file. ALLERGIES Patient has no known allergies. MEDICATIONS lisinopril (ZESTRIL, PRINIVIL) 20 mg tablet Take 20 mg by mouth once daily. FAMILY HISTORY Problem Relation Age of Onset - Diabetes Paternal Grandfather - Cancer Father unknown type - Coronary Artery Disease Mother - Hypertension Sister - Hypertension Brother Social History Tobacco Use - Smoking status: Current Every Day Smoker Packs/day: 0.50 Types: Cigarettes - Smokeless tobacco: Never Used - Tobacco comment: since age 19 Substance Use Topics - Alcohol use: No - Drug use: No Comment: remote marijuana, Adderall Review of Systems Constitutional: Positive for malaise/fatigue. Negative for appetite change, fever and weight loss. HENT: Positive for congestion, rhinorrhea and sore throat. Negative for ear pain, hoarse voice, postnasal drip, sneezing and trouble swallowing. Respiratory: Positive for cough, sputum production and shortness of breath. Negative for apnea, hemoptysis, choking, chest tightness and wheezing. Cardiovascular: Negative for chest pain, dyspnea on exertion and PND. Gastrointestinal: Negative for abdominal pain, diarrhea, heartburn, nausea and vomiting. Musculoskeletal: Negative for back pain and myalgias. Skin: Negative for color change, pallor, rash and wound. Allergic/Immunologic: Negative for environmental allergies, food allergies and immunocompromised state. Neurological: Negative for dizziness, facial asymmetry and headaches. Hematological: Negative for adenopathy. Does not bruise/bleed easily. Psychiatric/Behavioral: Negative for agitation and behavioral problems. Objective BP 134/90 Pulse 68 Temp 36.2 ?C (97.2 ?F) Resp 16 Wt 116.1 kg (256 lb) SpO2 98% BMI 40.10 kg/m? Physical Exam Vitals and nursing note reviewed. Constitutional: General: He is not in acute distress. Appearance: Normal appearance. He is not ill-appearing, toxic-appearing or diaphoretic. HENT: Head: Normocephalic and atraumatic. Right Ear: External ear normal. Left Ear: External ear normal. Nose: Nose normal. No congestion or rhinorrhea. Mouth/Throat: Mouth: Mucous membranes are moist. Pharynx: Oropharynx is clear. No oropharyngeal exudate or posterior oropharyngeal erythema. Eyes: General: Right eye: No discharge. Left eye: No discharge. Extraocular Movements: Extraocular movements intact. Conjunctiva/sclera: Conjunctivae normal. Pupils: Pupils are equal, round, and reactive to light. Cardiovascular: Rate and Rhythm: Normal rate and regular rhythm. Pulses: Normal pulses. Heart sounds: Normal heart sounds. No murmur heard. No friction rub. No gallop. Pulmonary: Effort: Pulmonary effort is normal. No respiratory distress. Breath sounds: Normal breath sounds. No stridor. No wheezing, rhonchi or rales. Chest: Chest wall: No tenderness. Abdominal: General: Abdomen is flat. There is no distens (more content not included)... Normal [facility] Coronavirus 2019on 1 SARS-CoV-2 (COVID-19) RNA CHARITY+probe Ql (Unsp spec) UPPER RESPIRATORY TRACT SWAB Normal [facility] Comment on above: Performed By: #### C OVID #### [address] [address] SARS-CoV-2 (COVID-19) RNA CHARITY+probe Ql (Unsp spec) Negative for COVID19 (SARS CoV2) by RT-PCR or equivalent method. Normal Negative for COVID19 (SARS CoV2) by RT-PCR or equivalent method. [facility] Comment on above: Result Comment: This test was developed and its performance characteristics determined by [facility]'s [facility] [place]. This test has been authorized by FDA under an Emergency Use Authorization (EUA). This test has been validated in accordance with the FDA's Guidance Document Policy for Diagnostics Testing in Laboratories Certified to Perform High Complexity Testing under CLIA prior to Emergency use Authorization for Coronavirus Disease 2019 during the Public Health Emergency issued on July 12, 2019. Test performed by [facility], [facility] [place], [facility] [place] [address]. Performed By: #### C OVID #### [place] [address] Comprehensive Panelon 2017 Urea nitrogen/Creatinine mass ratio 11 mg/mg Normal 10-20 [facility] Comment on above: Performed By: #### L P14 ####[address] [address] ALP enzyme act/vol 87 U/L Normal 46-116 [facility] Comment on above: Performed By: #### L P14 ####[address] [address] ALT-SGPT Blood 89 U/L High 14-63 [facility] Comment on above: Performed By: #### L P14 ####[address] [address] AST-SGOT Blood 44 U/L High 15-37 [facility] Comment on above: Performed By: #### L P14 ####[address] [address] Bilirubin Ql (U) 0.4 mg/dL Normal 0.2-1.0 [facility] Comment on above: Performed By: #### L P14 ####[address] [address] Creatinine mass conc 0.90 mg/dL Normal 0.67-1.17 [facility] Comment on above: Performed By: #### L P14 ####[address], [place] [address] Protein mass conc 7.9 g/dL Normal 6.4-8.2 [facility] Comment on above: Performed By: #### L P14 ####[facility] [place], [place] [address] Albumin mass conc 3.9 g/dL Normal 3.4-5.0 [facility] Comment on above: Performed By: #### L P14 ####[facility] [place], [place] [address] Anion gap 3 molar conc 7 mmol/L Low 8-20 [facility] Comment on above: Performed By: #### L P14 ####[address] [address] Calcium mass conc 8.8 mg/dL Normal 8.5-10.1 [facility] Comment on above: Performed By: #### L P14 ####[place] [address] Chloride molar conc 105 mmol/L Normal 98-107 [facility] Comment on above: Performed By: #### L P14 ####[address] [address] CO2 molar conc 31 mmol/L Normal 21-32 [facility] Comment on above: Performed By: #### L P14 ####[address] [address] Glucose mass conc 127 mg/dL High 70-99 [facility] Comment on above: Performed By: #### L P14 ####[address] [address] Potassium molar conc 4.5 mmol/L Normal 3.5-5.1 [facility] Comment on above: Performed By: #### L P14 ####[address] [address] Sodium molar conc 138 mmol/L Normal 136-145 [facility] Comment on above: Performed By: #### L P14 ####[address] [address] Urea nitrogen mass conc (Bld) 10 mg/dL Normal 7-25 [facility] Comment on above: Performed By: #### L P14 ####[facility] [place], [place] [address] Lipid Profileon 01-29-2018 Cholesterol in HDL mass conc 26 mg/dL Normal >40 [facility] Comment on above: Performed By: #### L LIPD ####[facility] [place], [place] [address] Cholesterol in LDL mass conc 79 mg/dL Normal 0-150 [facility] Comment on above: Performed By: #### L LIPD ####[facility] [place], [place] [address] Cholesterol mass conc 137 mg/dL Normal 0-199 [facility] Comment on above: Performed By: #### L LIPD ####[address] [address] Cholesterol.total/Dixie sterol in HDL mass ratio 5.3 {ratio} Normal 2.1-7.3 [facility] Comment on above: Performed By: #### L LIPD ####[address] [address] Risk Factor 5.3 Normal [facility] Comment on above: Result Comment: Card iac Risk Factor The CHD risk factor is based on the total Chol/HDL ratio. Otherfactors affect CHD risk such as hypertension, smoking, diabetes,severe obesity and premature CHD. Cardiac Risk Total Chol/HDL ratio Men Women 1/2 avg risk 3.4-4.9 3.3-6.3 Avg risk 5.0-9.5 6.4-7.0 2x avg risk 9.6-23.3 7.1-10.9 3x avg risk >23.4 >11.0 Performed By: #### L LIPD ####[address] [address] Triglyceride Blood 159 mg/dL High 0-149 [facility] Comment on above: Performed By: #### L LIPD ####[address] [address] MDRD eGFRon 01-29-2018 GFR/1.73 sq M predicted among non-blacks MDRD vol rate/area (S/P/Bld) mL/min/{1.73_m2} Normal >60mL/min/1.7 3m2 [facility] Comment on above: Result Comment: If t he patient is , multiply the result by 1.210. Performed By: #### L GFR ####[facility] [place], [place] [address] Vital Signs Date Time Vital Sign Value Performing Clinician Faci lity 05-05-2024 12:55-0500 Diastolic blood pressure 91 mm[Hg] Dr. Mitch Rudd MD Work Phone: [facility] 05-05-2024 12:55-0500 Heart rate 74 /min Dr. Mitch Rudd MD Work Phone: [facility] 05-05-2024 12:55-0500 Respiratory rate 18 /min Dr. Mitch Rudd MD Work Phone: [facility] 05-05-2024 12:55-0500 SaO2% (BldA) [Mass fraction] 99 % Dr. Mitch Rudd MD Work Phone: [facility] 05-05-2024 12:55-0500 Systolic blood pressure 156 mm[Hg] Dr. Mitch Rudd MD Work Phone: [facility] 05-05-2024 11:51-0500 Body temperature 98 [degF] Dr. Mitch Rudd MD Work Phone: [facility] 05-04-2024 21:00-0500 Body height 170.[address] Mitch Rudd MD Work Phone: [facility] 05-04-2024 21:00-0500 Body mass index (BMI) [Ratio] 35.2 kg/m2 Dr. Mitch Rudd MD Work Phone: 6([phone])110-520636 [place] [address] 05-04-2024 21:00-0500 Body weight 102.[address] Mitch Rudd MD Work Phone: [facility] 03-30-2024 14:38-0500 Body temperature 98 [degF] Dr. Mitch Rudd MD Work Phone: [facility] 03-30-2024 14:38-0500 Diastolic blood pressure 70 mm[Hg] Dr. Mitch Rudd MD Work Phone: 8(059)376-933136 [place] [address] 03-30-2024 14:38-0500 Heart rate 60 /min Dr. Mitch Rudd MD Work Phone: 3(092)793-395236 [place] [address] 03-30-2024 14:38-0500 Respiratory rate 18 /min Dr. Mitch Rudd MD Work Phone: 8(237)199-407936 [place] [address] 03-30-2024 14:38-0500 SaO2% (BldA) [Mass fraction] 99 % Dr. Mitch Rudd MD Work Phone: 2(114)313-454836 [place] [address] 03-30-2024 14:38-0500 Systolic blood pressure 136 mm[Hg] Dr. Mitch Rudd MD Work Phone: 2(388)066-057136 [place] [address] 03-30-2024 12:03-0500 Body mass index (BMI) [Ratio] 35 kg/m2 Dr. Mitch Rudd MD Work Phone: 9(029)236-428336 [place] [address] 03-30-2024 12:03-0500 Body weight 101.[address] Mitch Rudd MD Work Phone: [facility] 03-27-2024 13:30-0500 Body temperature 98.4 [degF] Dr. Mitch Rudd MD Work Phone: [facility] 03-27-2024 13:30-0500 Diastolic blood pressure 66 mm[Hg] Dr. Mitch Rudd MD Work Phone: [facility] 03-27-2024 13:30-0500 Heart rate 88 /min Dr. Mitch Rudd MD Work Phone: [facility] 03-27-2024 13:30-0500 Respiratory rate 18 /min Dr. Mitch Rudd MD Work Phone: [facility] 03-27-2024 13:30-0500 SaO2% (BldA) [Mass fraction] 99 % Dr. Mitch Rudd MD Work Phone: [facility] 03-27-2024 13:30-0500 Systolic blood pressure 148 mm[Hg] Dr. Mitch Rudd MD Work Phone: [facility] 03-26-2024 13:41-0500 Body mass index (BMI) [Ratio] 35.5 kg/m2 Dr. Mitch Rudd MD Work Phone: [facility] 03-26-2024 13:41-0500 Body weight 102.[address] Mitch Rudd MD Work Phone: [facility] Encounters Encounter Date Encounter Type Care Provider Facility Start: 10-13-2024 End: 10-13-[address] Mitch Rudd MD Work Phone: [facility] Work Phone: Start: 10-13-2024 End: 10-13-[address] Mitch Rudd MD -Laboratory Work Phone: Start: 10-13-2024 End: 10-13-[facility] Start: 07-04-2024 End: 07-04-[address] Mitch Rudd MD Work Phone: [facility] Work Phone: Start: 07-04-2024 End: 07-04-[address] Mitch Rudd MD -Laboratory Work Phone: Start: 07-04-2024 End: 07-04-2024 [facility] Start: 05-05-2024 Non-patient / Non-visit Dr. Seamus Payne DO -[facility] Work Phone: Start: 05-04-2024 Non-patient / Non-visit Dr. Marivel Mcdaniel MD -[facility] Work Phone: Start: 05-04-2024 End: 05-05-2024 ambulatory [facility] Facility:[facility] Start: 05-04-2024 End: 05-05-2024 Evaluation and management of inpatient Dr. Seamus Moseley DO -Medical Surgical 3 Work Phone: Start: 04-21-2024 End: 04-21-[address] Mitch Rudd MD -Laboratory, Phy Office 3rd Flr Start: 04-21-2024 End: 04-21-2024 ambulatory [facility] Facility:[facility] Start: 03-30-2024 End: 03-30-2024 Emergency department patient visit Dr. Paulino Blair MD -Emergency Department Work Phone: Start: 03-27-2024 Non-patient / Non-visit Dr. Bird joe MD -[facility] Work Phone: Start: 03-26-2024 ambulatory [facility] Facility:[facility] Start: 03-26-2024 Non-patient / Non-visit Dr. Adarsh RED -[facility] Start: 03-26-2024 Non-patient / Non-visit Dr. Bird joe MD -[facility] Work Phone: Start: 03-26-2024 End: 03-27-2024 ambulatory [facility] Facility:[facility] Start: 03-26-2024 End: 03-27-2024 Evaluation and management of inpatient Dr. Bird Claudio MD -Progressive Care Unit Work Phone: Start: 03-15-2024 End: 03-15-2024 Emergency department patient visit [facility] Facility:[facility] Start: 07-18-2022 End: 07-18-2022 ambulatory [facility] Work Phone: Start: 07-18-2022 End: 07-18-2022 Patient encounter procedure [facility] Start: 07-13-2022 End: 07-13-2022 ambulatory [facility] Work Phone: Start: 07-13-2022 End: 07-13-2022 Patient encounter procedure [facility]-Laboratory, Phy Office 3rd Flr Start: 07-08-2022 End: 07-08-2022 ambulatory [facility] Work Phone: Start: 07-08-2022 End: 07-08-2022 Patient encounter procedure [facility]-Ultrasound, [facility] Start: 06-26-2022 End: 06-26-2022 ambulatory [facility] Work Phone: Start: 06-26-2022 End: 06-26-2022 Patient encounter procedure [facility]-Laboratory, Phy Office 3rd Flr Start: 03-27-2022 End: 03-27-2022 ambulatory [facility] Work Phone: Start: 03-27-2022 End: 03-27-2022 Patient encounter procedure [facility]-Laboratory, y Office 3rd Flr Procedures Date Procedure Procedure Detail Performing Clinician Start: 07-04-2024 Measurement of renal function Dr. Mitch Rudd MD Work Phone: Comment on above: GFR Calc Start: 03-30-2024 Plain chest X-ray Dr. Dionna Rudd MD Work Phone: Start: 03-27-2024 Cardiovascular stres s test using pharmacologic stress agent Dr. Mitch Rudd MD Work Phone: Start: 03-26-2024 X-ray of chest, PA a nd lateral views Dr. Mitch Rudd MD Work Phone: Start: 07-18-2022 Ultrasound elastography Start: 07-08-2022 Ultrasonography of abdomen Plan of Treatment Date Care Activity Detail Author Start: 05-05-2024 Patient discharge [facility] Start: 05-04-2024 Ambulation without limitation [facility] Start: 05-04-2024 Assessment of risk of venous thromboembolism [facility] Start: 05-04-2024 Insertion of catheter into peripheral vein [facility] Start: 05-04-2024 Providing care according to standard [facility] Start: 05-04-2024 [facility] Start: 05-04-2024 Following clinical pathway protocol [facility] Start: 05-04-2024 Admission procedure [facility] Start: 03-30-2024 [facility] Start: 03-30-2024 [facility] Start: 03-27-2024 Patient discharge [facility] Start: 03-26-2024 Following clinical pathway protocol [facility] Start: 03-26-2024 Ambulation without limitation [facility] Start: 03-26-2024 Assessment of risk of venous thromboembolism [facility] Start: 03-26-2024 Catheterization of vein [facility] Start: 03-26-2024 Insertion of catheter into peripheral vein [facility] Start: 03-26-2024 Measuring intake and output [facility] Start: 03-26-2024 Notification of physician [facility] Start: 03-26-2024 Providing care according to standard [facility] Start: 03-26-2024 [facility] Start: 03-26-2024 Hospital admission, emergency, from emergency room, medical nature [facility] Start: 03-26-2024 Admission procedure [facility] Start: 03-26-2024 [facility] Patient Education ED Chest Pain, Uncertain Cause [facility] Work Phone: Patient referral [facility] Work Phone: Payers Date Payer Category Payer Self-pay [id number] 2024 Unknown [id number] [facility] [id number] Unknown [id number] 2.16.8 [id number] Unknown [id number] 2.16.8 [id number] Unknown [id number] 2.16.8 [id number] Unknown [id number] 2.16.8 [id number] Unknown [id number] 2.16.8 [id number] Unknown [id number] 2.16.8 [id number] Unknown [id number] 2.16.8 [id number] Unknown [id number] 2.16.8 [id number] Unknown [id number] 2.16.8 [id number] Unknown [id number] 2.16.8 [id number] Unknown [id number] 2.16.8 [id number] Unknown [id number] 2.16.8 [id number] Unknown 1966 2.16.8 [id number] Social History Date Type Detail Facility Start: 02-22-2021 End: 07-19-2022 Tobacco smoking status CTIS Unknown if ever smoked [facility] Start: 1970 Sex Assigned At Male [facility] Start: 05-04-2024 End: 05-04-2024 Tobacco smoking status NHIS Smokes tobacco daily (finding) [facility] Start: 07-17-2024 Sex Male (finding) [facility] Goals Date Patient Goal Desired Activity /State Functional Status Date Assessment Result Facility 05-05-2024 Functional status Up ad hanny;Bedrest [facility] Work Phone: 03-27-2024 Functional status Ambulates [facility] Work Phone: Mental Status Date Assessment Result Facility 05-05-2024 Cognitive function Appropriate;Cooperativ e [facility] Work Phone: 03-30-2024 Cognitive function Level Of Cons ciousness Awake;Alert;Appropriate;Follow s Commands [facility] Work Phone: 03-27-2024 Cognitive function Voice/Name [facility] Work Phone: Discharge summary note 05-05-2024 Note Date & Type Note Facility 05-05-2024 Note [facility] Medical Records Department [address] [place] [address] Discharge Summary 05/05/24 1124 MR#: [id number] Acct: [id number] Name: EVAN MORENO Rep #: [id number] : 1970 53 From: Seamus Moseley DO PCP: Dr. Mitch Rudd MD Status:DIS DARRIAN Location: [address] Providers Date of Admission: 05/04/24 Date of Discharge: 05/05/24 Primary Care Physician: Dr. Mitch Rudd MD Reason For Visit: ALLERGIC REACTION Diagnosis Discharge Diagnosis (1) Allergic reaction: Status: Acute Code(s): T78.40XA - Allergy, unspecified, initial encounter Plan 1. Mild angioedema secondary to QUANG inhibitor usage #2 essential hypertension #3 hyperlipidemia Medications at Discharge Home Medications amlodipine 10 mg tablet 10 mg PO DAILY #90 tabs 03/27/24 aspirin 81 mg capsule 81 mg PO DAILY #9 caps 03/27/24 hydrochlorothiazide 25 mg tablet 25 mg PO DAILY #90 tabs 03/27/24 citalopram 20 mg tablet 20 mg PO DAILY 05/04/24 metoprolol succinate 50 mg tablet,extended release 24 hr 50 mg PO DAILY #30 tabs 05/05/24 Hospital Course Operations None Procedures None Summary of Care Provided Minutes Spent on Discharge: 30 Hospital Course: This 53-year-old white male was seen in the emergency room at [facility] with a chief complaint of tongue swelling. Patient denied any shortness of breath or any difficulty swallowing. Patient was taking lisinopril for his blood pressure. Patient was given IM epinephrine, IV Benadryl, IV Pepcid, and IV Solu-Medrol due to concerns of likely angioedema. Patient was then monitored in the emergency room for approximately 2 hours, according to the ER documentation there was no improvement in the patient's tongue swelling. Patient was placed in observation status on MedSurg 3, the following morning he was reevaluated and felt to be stable for discharge home. On 05/05/2024, patient was seen and examined: On examination he appeared in good health and spirits. Vital signs as documented. Skin warm and dry and without overt rashes. Neck without JVD, neck was supple, trachea midline, thyroid was normal. Lungs clear bilaterally, normal air movement was noted. Heart exam notable for regular rhythm, normal sounds and absence of murmurs, rubs or gallops. Abdomen unremarkable and without evidence of organomegaly, masses, or abdominal aortic enlargement. Bowel sounds are present, abdomen is not distended. Extremities nonedematous, no cyanosis was noted, no clubbing was noted. Neuro: Cranial nerves II through XII are grossly intact, no focal motor deficits were noted, sensation to light touch and pinprick intact, motor exam 5/5 throughout. Psych: Patient is alert and oriented x3, he does not appear anxious or depressed, he does not appear agitated. Patient was discharged home in stable condition on 05/05/2024. Weight / BMI Weight Weight: 102.1 kg Body Mass Index (BMI) 35.2 D/C Instructions Discharge Diet: No restrictions Weight Bearing Status: Full weight bearing DC O2, CPAP, BIPAP Needs Home O2 Discharge instructions: No Meaningful Use Info Meaningful Use Meaningful Use Diagnoses (Choose all that apply): None applicable Ischemic Stroke Statin Dosing Therapy Reference: STATIN DOSE THERAPY REFERENCE: * Patients > 75 years receive moderate or high dose statin therapy. * Patients 75 years or YOUNGER should receive HIGH intensity statin dose unless contraindicated. You will be required to document reason for non-treatment if statin daily dose does not meet guidelines. HIGH DOSE STATIN THERAPY DAILY Atorvastatin > than or = to 40 mg Rosuvastatin > than or = to 20 mg Amlodipine + Atorvastatin > than or = to 2.5/40 mg Ezetimibe + Simvastatin 10/80 mg Simvastatin 80mg Discharge Plan Admission Admit Date/Time: 05/04/24 20:17 Primary Reason for Your Visit: allergic reaxtion to lisinopril Attending Provider: Seamus Moseley Primary Care Provider: Mitch Rudd Chi Consulting Providers: Anderson Mcdaniel Discharge Orders/Prescriptions Prescriptions: New metoprolol succinate 50 mg tablet extended release 24 hr 50 mg PO DAILY Qty: 30 0RF Continued amlodipine 10 mg Tablet 10 mg PO DAILY Qty: 90 0RF hydrochlorothiazide 25 mg Tablet 25 mg PO DAILY Qty: 90 0RF aspirin 81 mg capsule 81 mg PO DAILY Qty: 9 0RF citalopram 20 mg tablet 20 mg PO DAILY Discontinued lisinopril 20 mg tablet 20 mg PO DAILY Qty: 90 0RF Referrals / Follow Up: Mitch Rudd Chi, MD [Primary Care Provider] - In 1 Week Disposition Disposition (needs filled in before D/C Order can be placed): Home, Self Care Charges/Coding Visit Charges Inpatient E M: 84365 Disch Hosp 05/07/24 1627 Cosigner Signature (if applicable): CC: Dr. Seamus Moseley DO; Dr. Mitch Rudd (more content not included)... [facility] Discharge summary note 03-27-2024 Note Date & Type Note Facility 03-27-2024 Note [facility] Medical Records Department [address] [place] [address] Discharge Summary 03/27/24 1152 MR#: [id number] Acct: [id number] Name: EVAN MORENO Rep #: [id number] : 1970 53 From: Bird Claudio MD PCP: Dr. Mitch Rudd MD Status:ADM DARRIAN Location: [place] [address] Providers Date of Admission: 03/26/24 Date of Discharge: 03/27/24 Primary Care Physician: Dr. Mitch Rudd MD Reason For Visit: CHEST PAIN Diagnosis Discharge Diagnosis (1) Chest pain: Status: Acute Code(s): R07.9 - Chest pain, unspecified (2) Hypertension: Status: Chronic Code(s): I10 - Essential (primary) hypertension Plan Patient is a 53-year-old gentleman presented with chest pain 1. Chest Pain: -Placed on a monitored bed; rule out for Myocardial infarction with serial cardiac enzymes and EKGs. If negative, rule out Myocardial Ischemia with nuclear medicine stress test. Also ordered 2D echo ??? Patient underwent nuclear stress test which was negative for stress-induced ischemia estimated EF was 62%. 2. Essential hypertension ??? Patient blood pressure control not optimal patient is on lisinopril did continue added hydralazine as needed for systolic blood pressure greater than 160 ??? Added amlodipine as well as HCTZ to patient antihypertensive regimen 3. Tobacco dependence ??? Counseled on cessation, offered nicotine patch for tobacco cravings 4. Class II obesity with BMI of 36.1 ??? Complicating care weight loss advised 5. DVT prophylaxis ??? Subcu Lovenox Medications at Discharge Home Medications amlodipine 10 mg tablet 10 mg PO DAILY #90 tabs 03/27/24 aspirin 81 mg capsule 81 mg PO DAILY #9 caps 03/27/24 hydrochlorothiazide 25 mg tablet 25 mg PO DAILY #90 tabs 03/27/24 lisinopril 20 mg tablet 20 mg PO DAILY #90 tabs 03/27/24 Hospital Course Summary of Care Provided Minutes Spent on Discharge: 35 Physical Exam Narrative GENERAL: cooperative HEENT: Atraumatic; normocephalic EYES; Anicteric, Normal Conjunctiva NECK; supple, normal thyroid, RESPIRATORY: Diminished to auscultation CARDIOVASCULAR: Regular S1 S2, GI: soft, normoactive bowel sounds, : No Renal angle tenderness; EXTREMITIES: No edema, no clubbing, MUSCULOSKELETAL: no muscle wasting NEURO: Awake; no lateralizing signs. SKIN: No Rash PSYCH; Flat affect Weight / BMI Weight Weight: 102.9 kg Body Mass Index (BMI) 35.5 ABG / Lab / Microbiology Data 03/27/24 05:47 03/27/24 05:47 Laboratory: Laboratory Results - last 24 hr 03/26/24 11:42: Troponin I High Sens 58 03/26/24 15:30: Troponin I High Sens 54 03/27/24 05:47: WBC 7.6, RBC 6.33 H, Hgb 17.9 H, Hct 52.7, MCV 83.3, MCH 28.3, MCHC 34.0, RDW Std Deviation 34.5 L, RDW Coeff of Darell 11.6, Plt Count 295, MPV 10.0, Immature Gran % (Auto) 0.100, Neut % (Auto) 58.8, Lymph % (Auto) 34.4, [place] % (Auto) 5.2, Eos % (Auto) 0.7, Baso % (Auto) 0.8, Absolute Neuts (auto) 4.4, Absolute Lymphs (auto) 2.60, Nucleated RBC % 0, Sodium 136, Potassium 4.0, Chloride 106, Carbon Dioxide 25.0, Anion Gap 5, BUN 13, Creatinine 0.90, Estim Creat Clear Calc 109.76, Est GFR (MDRD) Af Amer 114, Est GFR (MDRD) Non-Af 94, BUN/Creatinine Ratio 14.4, Glucose 131 H, Hemoglobin A1c 5.8 H, Calcium 9.4, Phosphorus 4.1, Magnesium 2.1 Radiography Diagnostic Testing: Radiology Impression Echocardiogram 03/26/24 12:37 Interpretation Summary Normal LV size. Left ventricular systolic function is normal. The left ventricular ejection fraction is 65 %. Contrast injection was performed. Ordering Physician: Bird Claudio Referring Physician: Mitch Rudd Chi Performed By: Cristina Wise RDCS, RVT D/C Instructions Discharge Diet: No restrictions Discharge Activity: Return to Normal Activity Call your doctor if you observe: Fever of 101 or Higher, Shortness of breath, Fainting spells and Chest pain Meaningful Use Info Meaningful Use Meaningful Use Diagnoses (Choose all that apply): None applicable Ischemic Stroke Statin Dosing Therapy Reference: STATIN DOSE THERAPY REFERENCE: * Patients > 75 years receive moderate or high dose statin therapy. * Patients 75 years or YOUNGER should receive HIGH intensity statin dose unless contraindicated. You will be required to document reason for non-treatment if statin daily dose does not meet guidelines. HIGH DOSE STATIN THERAPY DAILY Atorvastatin > than or = to 40 mg Rosuvastatin > than or = to 20 mg Amlodipine + Atorvastatin > than or = to 2.5/40 mg Ezetimibe + Simvastatin 10/80 mg Simvastatin 80mg Discharge Plan Admission Admit Date/Time: 03/26/24 12:33 Attending Provider: Bird Claudio Pr (more content not included)... [facility] Evaluation note 03-26-2024 Note Date & Type Note Facility 03-26-2024 Evaluation note Diagnosis Onset Date Resolution Hypertension chronic March 12:33pm Chest pain resolved March 26, 2024 12:33pm Allergic reaction inactive Jayshree younger 2023 8:17pm [facility] Work Phone: Progress note 02-03-2021 Note Date & Type Note Facility 02-03-2021 Note HNO ID: [id number] Author: Thea Frankel APRN.JESUS Service: ? Author Type: Nurse Practitioner Type: Progress Notes Filed: 02/03/2021 10:58 AM Note Text: This note was created using From [employer]. Subjective Evan Moreno is a 50 year old male. 50 year old male with PMH HTN presents with complaints of cough and congestion. Acute onset of symptoms was 2 to 3 days ago +cough +congestion +SOB with coughing. +fatigue States 3 days ago he experienced dizziness, but states that only lasted the first day and has since resolved Denies CP. Denies prior history of COVID. Denies The history is provided by the patient. No speech language pathologist assistant was used. URI He complains of cough, shortness of breath and sputum production. There is no chest tightness, difficulty breathing, frequent throat clearing, hemoptysis, hoarse voice or wheezing. This is a new problem. The current episode started in the past 7 days. The problem occurs constantly. The problem has been unchanged. The cough is non-productive. Associated symptoms include malaise/fatigue, nasal congestion, rhinorrhea and a sore throat. Pertinent negatives include no appetite change, chest pain, dyspnea on exertion, ear congestion, ear pain, fever, headaches, heartburn, myalgias, orthopnea, PND, postnasal drip, sneezing, sweats, trouble swallowing or weight loss. His symptoms are aggravated by nothing. His symptoms are alleviated by nothing. He reports no improvement on treatment. There are no known risk factors for lung disease. There is no history of asthma, bronchiectasis, bronchitis, COPD, emphysema or pneumonia. PAST MEDICAL HISTORY Diagnosis Date - Hypertension - Mild depression (HCC) No past surgical history on file. ALLERGIES Patient has no known allergies. MEDICATIONS lisinopril (ZESTRIL, PRINIVIL) 20 mg tablet Take 20 mg by mouth once daily. FAMILY HISTORY Problem Relation Age of Onset - Diabetes Paternal Grandfather - Cancer Father unknown type - Coronary Artery Disease Mother - Hypertension Sister - Hypertension Brother Social History Tobacco Use - Smoking status: Current Every Day Smoker Packs/day: 0.50 Types: Cigarettes - Smokeless tobacco: Never Used - Tobacco comment: since age 19 Substance Use Topics - Alcohol use: No - Drug use: No Comment: remote marijuana, Adderall Review of Systems Constitutional: Positive for malaise/fatigue. Negative for appetite change, fever and weight loss. HENT: Positive for congestion, rhinorrhea and sore throat. Negative for ear pain, hoarse voice, postnasal drip, sneezing and trouble swallowing. Respiratory: Positive for cough, sputum production and shortness of breath. Negative for apnea, hemoptysis, choking, chest tightness and wheezing. Cardiovascular: Negative for chest pain, dyspnea on exertion and PND. Gastrointestinal: Negative for abdominal pain, diarrhea, heartburn, nausea and vomiting. Musculoskeletal: Negative for back pain and myalgias. Skin: Negative for color change, pallor, rash and wound. Allergic/Immunologic: Negative for environmental allergies, food allergies and immunocompromised state. Neurological: Negative for dizziness, facial asymmetry and headaches. Hematological: Negative for adenopathy. Does not bruise/bleed easily. Psychiatric/Behavioral: Negative for agitation and behavioral problems. Objective BP 134/90 Pulse 68 Temp 36.2 ?C (97.2 ?F) Resp 16 Wt 116.1 kg (256 lb) SpO2 98% BMI 40.10 kg/m? Physical Exam Vitals and nursing note reviewed. Constitutional: General: He is not in acute distress. Appearance: Normal appearance. He is not ill-appearing, toxic-appearing or diaphoretic. HENT: Head: Normocephalic and atraumatic. Right Ear: External ear normal. Left Ear: External ear normal. Nose: Nose normal. No congestion or rhinorrhea. Mouth/Throat: Mouth: Mucous membranes are moist. Pharynx: Oropharynx is clear. No oropharyngeal exudate or posterior oropharyngeal erythema. Eyes: General: Right eye: No discharge. Left eye: No discharge. Extraocular Movements: Extraocular movements intact. Conjunctiva/sclera: Conjunctivae normal. Pupils: Pupils are equal, round, and reactive to light. Cardiovascular: Rate and Rhythm: Normal rate and regular rhythm. Pulses: Normal pulses. Heart sounds: Normal heart sounds. No murmur heard. No friction rub. No gallop. Pulmonary: Effort: Pulmonary effort is normal. No respiratory distress. Breath sounds: Normal breath sounds. No stridor. No wheezing, rhonchi or rales. Chest: Chest wall: No tenderness. Abdominal: General: Abdomen is flat. There is no distension. Palpations: Abdomen is soft. There is no mass. Tenderness: There is no abdominal tenderness. There is no guarding or rebound. Hernia: No hernia is present. Musculoskeletal: General: No swelling, tenderness, deformity or signs of injury. Normal range of motion. Cer (more content not included)... [facility] Evaluation note Note Date & Type Note Facility Evaluation note No assessment information availa ble [facility] Work Phone: Reason for referral (narrative) Note Date & Type Note Facility Reason for referral (narrative) No reason for referral information available [facility] Work Phone: Summary Purpose Family History No Family History Records FoundNo Family History Records FoundNo Family History Records Found Advance Directives No Advanced Directives Records Found Advance Directive Response Recorded Date/ Time Living Will No February 22 7:15pm Power of Medical Appointment Scheduler No February 22, 2021 7:15pm Advance Directive Response Recorded Date/ Time Living Will No March 26, 024 1:45pm Power of Medical Appointment Scheduler No March 26, 2024 1:45pm Living Will No March 30, 2 024 12:02pm Power of Medical Appointment Scheduler No March 30, 2024 12:02pm Living Will No May 04, 024 9:04pm Power of Medical Appointment Scheduler No May 04, 2024 9:04pm Chief Complaint and Reason for Visit Chief Complaint ELEVATED LIVER ENZYM ES Chief Complaint ELEVATED LIVER ENZYM ES FATTY LIVER Chief Complaint Admit Date CHEST PAIN March 26, 2024 12:33pm CHEST PAIN March 26, 2024 12:44pm CHEST PAIN March 27, 2024 11:11am CHEST PAIN March 27, 2024 11:52am chest pain March 30, 2024 12:00pm ALLERGIC REACTION May 04, 2024 8:17pm ALLERGIC REACTION May 04, 2024 8:18pm ALLERGIC REACTION May 05, 2024 11:24am Reason for Visit Admit Date Hypertension March 26, 2024 12:33pm Chest pain March 26, 2024 12:33pm Allergic reaction May 04, 2024 8:17pm Additional Source Comments (unrecognized sect ion and content) No Status Records FoundNo Status Records FoundNo Status Records Found INFORMATION SOURCE (unrecogn ized section and content) DATE CREATED AUTHOR 02/25/2018 [facility] DATE CREATED AUTHOR AUTHOR'S ORGANIZ ATION 06/09/2021 [facility] DATE CREATED AUTHOR AUTHOR'S ORGANIZ ATION 10/19/2024 [facility] Goals (unrecognized section and content) Goals may be documented in a n alternate sectionGoals may be documented in an alternate sectionGoals may be documented in an alternate sectionGoals may be documented in an alternate sectionGoals may be documented in an alternate sectionGoals may be documented in an alternate section Care Teams (unrecognized sec tion and content) Team Status: Active Member Role Status Dates No Primary Care Physician Family Provider Active Dr. Mitch Rudd MD Primary Care Provider Active Team Status: Inactive Member Role Status Dates No Primary Care Physician Primary Care Provider Active Dr. Mitch Rudd MD Attending Provider Active Team Status: Inactive Member Role Status Dates No Primary Care Physician Primary Care Provider Active Mitch Rudd MD Attending Provider Active Team Status: Inactive Member Role Status Dates Dr. Mitch Rudd MD Primary Care Provider, Attending Provider Active Team Status: Active Member Role Status Dates Dr. Mitch Rudd MD Primary Care Provider, Attending Provider Active Team Status: Inactive Member Role Status Dates Dr. Mitch Rudd MD Primary Care Provider Active Start: March 26, 2024 End: March 27, 2024 Dr. Valdo Harry DO Emergency Provider Active Start : March 26, 2024 End: March 27, 2024 Dr. Bird Claudio MD Admit Provider Active Star t: March 26, 2024 End: March 27, 2024 Dr. Bird Claudio MD Attending Provider Active Start: March 26, 2024 End: March 27, 2024 Team Status: Active Member Role Status Dates Dr. Mitch Rudd MD Primary Care Provider Active Start: March 26, 2024 Dr. Valdo Harry DO Emergency Provider Active Start : March 26, 2024 Dr. Bird Claudio MD Admit Provider Active Star t: March 26, 2024 Dr. Bird Claudio MD Attending Provider Active Start: March 26, 2024 Dr. Bird Claudio MD Other Provider Active Star t: March 26, 2024 Team Status: Active Member Role Status Dates Dr. Mitch Rudd MD Primary Care Provider Active Start: March 26, 2024 Dr. Jose Ramesh MD Attending Provider Active S tart: March 26, 2024 Team Status: Active Member Role Status Dates Dr. Mitch Rudd MD Primary Care Provider Active Start: March 27, 2024 Dr. Valdo Harry DO Emergency Provider Active Start : March 27, 2024 Dr. Bird Claudio MD Admit Provider Active Star t: March 27, 2024 Dr. Bird Claudio MD Other Provider Active Star t: March 27, 2024 Dr. Terrance Patel MD Attending Provider Activ e Start: March 27, 2024 Team Status: Active Member Role Status Dates Dr. Mitch Rudd MD Primary Care Provider Active Start: March 27, 2024 Dr. Valdo Harry DO Emergency Provider Active Start : March 27, 2024 Dr. Bird Claudio MD Admit Provider Active Star t: March 27, 2024 Dr. Bird Claudio MD Attending Provider Active Start: March 27, 2024 Dr. Bird Claudio MD Other Provider Active Star t: March 27, 2024 Team Status: Inactive Member Role Status Dates Dr. Mitch Rudd MD Primary Care Provider Active Start: March 30, 2024 End: March 30, 2024 Dr. Paulino Blair MD Attending Provider Active S tart: March 30, 2024 End: March 30, 2024 Dr. Paulino Blair MD Emergency Provider Active S tart: March 30, 2024 End: March 30, 2024 Team Status: Inactive Member Role Status Dates Dr. Mitch Rudd MD Primary Care Provider Active Start: April 21, 2024 End: April 21, 2024 Dr. Mitch Rudd MD Attending Provider Active Start: April 21, 2024 End: April 21, 2024 Team Status: Inactive Member Role Status Dates Dr. Mitch Rudd MD Primary Care Provider Active Start: May 04, 2024 End: May 05, 2024 Dr. Mike Yanes DO Emergency Provider Activ e Start: May 04, 2024 End: May 05, 2024 Dr. Anderson Mcdaniel MD Admit Provider Active Start: May 04, 2024 End: May 05, 2024 Dr. Anderson Mcdaniel MD Other Provider Active Start: May 04, 2024 End: May 05, 2024 Dr. Seamus Moseley DO Attending Provider Active Start: May 04, 2024 End: May 05, 2024 Team Status: Active Member Role Status Dates Dr. Mitch Rudd MD Primary Care Provider Active Start: May 04, 2024 Dr. Mike Yanes DO Emergency Provider Activ e Start: May 04, 2024 Dr. Anderson Mcdaniel MD Admit Provider Active Start: May 04, 2024 Dr. Anderson Mcdaniel MD Attending Provider Active Start: May 04, 2024 Dr. Anderson Mcdaniel MD Other Provider Active Start: May 04, 2024 Team Status: Active Member Role Status Dates Dr. Mitch Rudd MD Primary Care Provider Active Start: May 05, 2024 Dr. Mike Yanes DO Emergency Provider Activ e Start: May 05, 2024 Dr. Anderson Mcdaniel MD Admit Provider Active Start: May 05, 2024 Dr. Anderson Mcdaniel MD Other Provider Active Start: May 05, 2024 Dr. Seamus Moseley DO Attending Provider Active Start: May 05, 2024 Dr. Seamus Moseley DO Other Provider Active S tart: May 05, 2024 Team Status: Inactive Member Role Status Dates Dr. Mitch Rudd MD Primary Care Provider Active Start: July 04, 2024 End: July 04, 2024 Dr. Mitch Rudd MD Attending Provider Active Start: July 04, 2024 End: July 04, 2024 Dr. Mitch Rudd MD Referring Provider Active Start: July 04, 2024 End: July 04, 2024 Team Status: Inactive Member Role Status Dates Dr. Mitch Rudd MD Primary Care Provider Active Start: October 13, 2024 End: October 13, 2024 Dr. Mitch Rudd MD Attending Provider Active Start: October 13, 2024 End: October 13, 2024 Dr. Mitch Rudd MD Referring Provider Active Start: October 13, 2024 End: October 13, 2024 FOR RECORDS PERTAINING TO PATIENTS WHO ARE OR HAVE BEEN ENROLLED IN A CHEMICAL DEPENDENCY/SUBSTANCEABUSE PROGRAM, SOME INFORMATION MAY BE OMITTED. This clinical summary was aggregated from multiple sources. Caution should be exercised in using it in the provision of clinical care. This summary normalizes information from multiple sources, and as a consequence, information in this document may materially change the coding, format and clinical context of patient data. In addition, data may be omitted in some cases. CLINICAL DECISIONS SHOULD BE BASED ON THE PRIMARY CLINICAL RECORDS. [facility]. provides no warranty or guarantee of the accuracy or completeness of information in this document.
== END | disposition home or self-care (01) ==
LOC: LAB 11:55
PROVIDERS: PCP Family Medicine Geriatric Medicine; Referring Provider Family Medicine Geriatric Medicine; Visit Provider Family Medicine Geriatric Medicine
DX: I10 Essential (primary) hypertension (principal)
CPT/HCPCS: 36415; 80053

== ENCOUNTER → 2024-11-07 | Outpatient (CLI) | payer MEDICAID, SELFPAY ==
[2024-11-07 12:39] LABS: Hemoglobin A1c 6.5 % (<=5.6)
[2024-11-07 13:07] LABS: Anion Gap 11 (5-15); BUN 15 mg/dL (4-19); BUN/Creat Ratio 15.7 RATIO (10-20); Calcium,Total 9.6 mg/dL (7.6-11.0); Carbon Dioxide 29.6 mmol/L (21.0-32.0); Chloride 95 mmol/L (98-108); Creatinine, Serum 0.97 mg/dL (0.70-1.20); EST Glomerular Filtration Rate 93 (>60); Glucose 121 mg/dL (70-99); Potassium 2.8 mmol/L (3.3-5.1); Sodium Level 136 mmol/L (133-145)
== END | disposition home or self-care (01) ==
LOC: LAB 10:39
PROVIDERS: PCP Family Medicine Geriatric Medicine; Referring Provider Family Medicine Geriatric Medicine; Visit Provider Family Medicine Geriatric Medicine
DX: I10 Essential (primary) hypertension (principal); Z78.0 Asymptomatic menopausal state
CPT/HCPCS: 36415; 80048; 83036

== ENCOUNTER → 2024-11-13 | Outpatient (CLI) | payer MEDICAID, SELFPAY ==
[2024-11-13 11:59] LABS: Anion Gap 13 (5-15); BUN 13 mg/dL (4-19); BUN/Creat Ratio 11.8 RATIO (10-20); Calcium,Total 9.2 mg/dL (7.6-11.0); Carbon Dioxide 27.7 mmol/L (21.0-32.0); Chloride 97 mmol/L (98-108); Glucose 116 mg/dL (70-99); Potassium 2.7 mmol/L (3.3-5.1)
== END | disposition home or self-care (01) ==
LOC: LAB 09:40
PROVIDERS: PCP Family Medicine Geriatric Medicine; Referring Provider Family Medicine Geriatric Medicine; Visit Provider Family Medicine Geriatric Medicine
DX: I10 Essential (primary) hypertension (principal)
CPT/HCPCS: 36415; 80048

== ENCOUNTER → 2024-11-17 | Outpatient (CLI) | payer MEDICAID, SELFPAY ==
[2024-11-17 09:55] LABS: Anion Gap 11 (5-15); BUN 23 mg/dL (4-19); BUN/Creat Ratio 15.9 RATIO (10-20); Calcium,Total 9.3 mg/dL (7.6-11.0); Carbon Dioxide 26.8 mmol/L (21.0-32.0); Chloride 102 mmol/L (98-108); Glucose 115 mg/dL (70-99); Potassium 3.9 mmol/L (3.3-5.1)
== END | disposition home or self-care (01) ==
PROVIDERS: PCP Family Medicine Geriatric Medicine; Referring Provider Family Medicine Geriatric Medicine; Visit Provider Family Medicine Geriatric Medicine
DX: I10 Essential (primary) hypertension (principal)
CPT/HCPCS: 36415; 80048

== ENCOUNTER → 2024-11-19 | Outpatient (CLI) | payer MEDICAID, SELFPAY ==
[2024-11-19 11:57] LABS: Anion Gap 13 (5-15); BUN 20 mg/dL (4-19); BUN/Creat Ratio 21.6 RATIO (10-20); Calcium,Total 9.5 mg/dL (7.6-11.0); Carbon Dioxide 27.3 mmol/L (21.0-32.0); Chloride 98 mmol/L (98-108); Glucose 125 mg/dL (70-99); Potassium 3.7 mmol/L (3.3-5.1)
== END | disposition home or self-care (01) ==
LOC: LAB 10:23
PROVIDERS: PCP Family Medicine Geriatric Medicine; Referring Provider Family Medicine Geriatric Medicine; Visit Provider Family Medicine Geriatric Medicine
DX: I10 Essential (primary) hypertension (principal)
CPT/HCPCS: 36415; 80048